=== PATIENT | male | born 1960 | race African-American/Black ===

== ENCOUNTER 2016-08-08 07:47 | Inpatient (IN) | payer MEDICARE, BC ==
[2016-08-08] MEDS ORDERED: SODIUM CHLORIDE 0.9% 1,000 ML IV STA (08:02)
--- NOTE | 2016-08-08 08:05 | ED ---
General Adult HPI - General Chief complaint: Arrhythmia/Palpitations Stated complaint: HEART RATE Time Seen by Provider: 08/08/16 07:56 Source: patient, family, RN notes reviewed Mode of arrival: ambulatory Limitations: no limitations - History of Present Illness Initial comments: Patient is a pleasant 56-year-old male presenting to the emergency Department with reported high heart rate. Patient denies palpitations. Patient states he did go to dialysis and was advised to come here secondary to increased heart rate. Patient admits to not taking his amiodarone for the past few days. Patient states he ran out and was delayed in getting it refilled. Patient did have similar symptoms previously also associated with not taking his medications one time. No chest pain. Patient states she may be slightly short of breath however attributes this to being told his heart rate was high and may feel anxious because of it. Patient denied any shortness of breath prior to being told his heart rate was high. No leg pain or leg swelling. - Related Data Home Medications Medication Instructions Recorded Confirmed Folic Acid 1 mg PO DAILY 03/11/16 08/08/16 Lisinopril [Zestril] 10 mg PO BID 04/18/16 08/08/16 Amiodarone [Cordarone] 200 mg PO DAILY 08/08/16 08/08/16 Carvedilol [Coreg] 3.125 mg PO BID 08/08/16 08/08/16 HYDROcodone/APAP 5-325MG [[place] 1 tab PO Q6H PRN 08/08/16 08/08/16 5-325] hydrALAZINE HCL [Apresoline] 100 mg PO DIRECTED 08/08/16 08/08/16 traZODone HCL 50 mg PO HS 08/08/16 08/08/16 Allergies Allergy/AdvReac Type Severity Reaction Status Date / Time No Known Allergies Allergy Verified 08/08/16 08:38 Review of Systems ROS Statement: Those systems with pertinent positive or pertinent negative responses have been documented in the HPI. ROS Other: All systems not noted in ROS Statement are negative. Constitutional: Denies: fever Eyes: Denies: eye pain ENT: Denies: ear pain Respiratory: Denies: cough Cardiovascular: Denies: chest pain Endocrine: Denies: fatigue Gastrointestinal: Denies: abdominal pain Genitourinary: Denies: urgency Musculoskeletal: Denies: back pain Skin: Denies: rash Neurological: Denies: weakness Past Medical History Past Medical History: Coronary Artery Disease (CAD), Heart Failure, Dialysis, Hyperlipidemia, Hypertension, Myocardial Infarction ([place]), Pneumonia, Renal Disease, Supraventricular Tachycardia (SVT) Additional Past Medical History / Comment(s): Pt recently admitted to [facility] 03/26 with NVD, hyperkalemia. Other HX: 03/11/16 possible R lower lobe pneumonia with sepsis with metabolic encephalopathy.chronic kidney disease stage IV, hemodialysis MOWEFR, moderate cardiomegaly, EF 30-40%, SVT in past, nonsustained VTach, SOB,Weakness, gait dysfunction, anemia, gout, diverticulosis. Last Myocardial Infarction Date:: 2014 History of Any Multi-Drug Resistant Organisms: None Reported Past Surgical History: Heart Catheterization, Heart Catheterization With Stent, Orthopedic Surgery Additional Past Surgical History / Comment(s): dialysis shunt LT ARM ,KIDNEY TRANSPLANT 1993 (RT), lt hand fingers broken-repaired. 2014 cardiac cath with stent to proximal LAD, 2015 heart cath treated medically, colonoscopy with benign polypectomy. Past Anesthesia/Blood Transfusion Reactions: No Reported Reaction Date of Last Stent Placement:: 06/2014 Past Psychological History: Anxiety Additional Psychological History / Comment(s): lives in the family home with his and daughters. 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 No experience. No international travel. No animal exposures. Denies tobacco or alcohol use. Pt states he smokes marijuana- 1 joint most days. Smoking Status: Former smoker Past Alcohol Use History: None Reported Additional Past Alcohol Use History / Comment(s): QUIT SMOKING IN 2009(CIGARS) UNSURE HOW LONG HE SMOKED FOR Past Drug Use History: None Reported Additional Drug Use History / Comment(s): Pt states he smokes marijuana- 1 joint most days. - Past Family History Father Family Medical History: Unable to Obtain Additional Family Medical History / Comment(s): WAS RAISED BY STEP DAD. Mother Family Medical History: Congestive Heart Failure (CHF), Diabetes Mellitus, Renal Disease Additional Family Medical History / Comment(s): Mother passed in 2004 General Exam Limitations: no limitations General appearance: alert, in no apparent distress Head exam: Present: atraumatic Eye exam: Present: normal appearance, PERRL ENT exam: Present: normal oropharynx Neck exam: Present: normal inspection Respiratory exam: Present: normal lung sounds bilaterally Cardiovascular Exam: Present: tachycardia GI/Abdominal exam: Present: soft. Absent: tenderness Extremities exam: Present: normal inspection Neurological exam: Present: alert Psychiatric exam: Present: normal affect, normal mood Skin exam: Absent: rash Course Vital Signs 08/08/16 08/08/16 08/08/16 07:51 07:58 08:38 Temperature Pulse Rate 136 H 134 H Pulse Rate [ 138 H Bilateral Radial] Respiratory 20 Rate Blood Pressure 134/94 O2 Sat by Pulse 98 Oximetry 08/08/16 08/08/16 08/08/16 09:15 09:41 10:46 Temperature 98.5 F Pulse Rate 135 H 130 H 129 H Pulse Rate [ Bilateral Radial] Respiratory 16 18 16 Rate Blood Pressure 128/92 126/95 118/96 O2 Sat by Pulse 97 99 100 Oximetry - Reevaluation(s) Reevaluation #1: 08/08/16 08:14 Patient takes amiodarone 200 mg daily normally. 08/08/16 08:19 Case was discussed with Dr. Varma who will notify Dr. Genao to come see the patient. 08/08/16 08:37 Case was discussed with practitioner Shad who does recommend 150 mg IV amiodarone bolus followed by titration protocol. EKG Findings - EKG Comments: EKG Findings:: SVT at 138. QRS 100. QT 318. QTC 481. Left axis. Voltage criteria for LVH. Septal Q waves. No acute ST change. Medical Decision Making - Medical Decision Making Heart rate has improved somewhat to 129. Case was discussed in detail also with Dr. Molina, who will admit his patient. Patient and family updated. - Lab Data Result diagrams: 08/08/16 09:00 08/08/16 08:08 Lab Results 08/08/16 08/08/16 08/08/16 Range/Units 08:08 08:08 09:00 WBC 4.7 (3.8-10.6) k/uL RBC 4.30 (4.30-5.90) m/uL Hgb 13.0 (13.0-17.5) gm/dL Hct 40.2 (39.0-53.0) % MCV 93.5 (80.0-100.0) fL MCH 30.2 (25.0-35.0) pg MCHC 32.3 (31.0-37.0) g/dL RDW 16.6 H (11.5-15.5) % Plt Count 157 (150-450) k/uL Neutrophils % 58 % Lymphocytes % 22 % Monocytes % 10 % Eosinophils % 6 % Basophils % 1 % Neutrophils # 2.8 (1.3-7.7) k/uL Lymphocytes # 1.0 (1.0-4.8) k/uL Monocytes # 0.5 (0-1.0) k/uL Eosinophils # 0.3 (0-0.7) k/uL Basophils # 0.0 (0-0.2) k/uL Anisocytosis Slight PT (9.0-12.0) sec INR (<1.1) APTT (22.0-30.0) sec Sodium 141 (137-145) mmol/L Potassium 5.1 (3.5-5.1) mmol/L Chloride 98 (98-107) mmol/L Carbon Dioxide 21 L (22-30) mmol/L Anion Gap 22 mmol/L BUN 60 H (9-20) mg/dL Creatinine 10.01 H* (0.66-1.25) mg/dL Est GFR (MDRD) Af Amer 7 (>60 ml/min/1.73 sqM) Est GFR (MDRD) Non-Af 5 (>60 ml/min/1.73 sqM) Glucose 113 H (74-99) mg/dL Calcium 9.7 (8.4-10.2) mg/dL Magnesium 2.0 (1.6-2.3) mg/dL Total Bilirubin 0.8 (0.2-1.3) mg/dL AST 30 (17-59) U/L ALT 32 (21-72) U/L Alkaline Phosphatase 125 (38-126) U/L Total Creatine Kinase 82 (55-170) U/L CK-MB (CK-2) 1.9 (0.0-2.4) ng/mL CK-MB (CK-2) Rel Index 2.3 Troponin I 0.137 H* (0.000-0.034) ng/mL Total Protein 8.2 (6.3-8.2) g/dL Albumin 4.5 (3.5-5.0) g/dL TSH 1.790 (0.465-4.680) mIU/L Free T4 1.43 (0.78-2.19) ng/dL Free T3 pg/mL 4.4 (2.8-5.3) pg/ml 08/08/16 Range/Units 09:00 WBC (3.8-10.6) k/uL RBC (4.30-5.90) m/uL Hgb (13.0-17.5) gm/dL Hct (39.0-53.0) % MCV (80.0-100.0) fL MCH (25.0-35.0) pg MCHC (31.0-37.0) g/dL RDW (11.5-15.5) % Plt Count (150-450) k/uL Neutrophils % % Lymphocytes % % Monocytes % % Eosinophils % % Basophils % % Neutrophils # (1.3-7.7) k/uL Lymphocytes # (1.0-4.8) k/uL Monocytes # (0-1.0) k/uL Eosinophils # (0-0.7) k/uL Basophils # (0-0.2) k/uL Anisocytosis PT 11.2 (9.0-12.0) sec INR 1.1 (<1.1) APTT 21.2 L (22.0-30.0) sec Sodium (137-145) mmol/L Potassium (3.5-5.1) mmol/L Chloride (98-107) mmol/L Carbon Dioxide (22-30) mmol/L Anion Gap mmol/L BUN (9-20) mg/dL Creatinine (0.66-1.25) mg/dL Est GFR (MDRD) Af Amer (>60 ml/min/1.73 sqM) Est GFR (MDRD) Non-Af (>60 ml/min/1.73 sqM) Glucose (74-99) mg/dL Calcium (8.4-10.2) mg/dL Magnesium (1.6-2.3) mg/dL Total Bilirubin (0.2-1.3) mg/dL AST (17-59) U/L ALT (21-72) U/L Alkaline Phosphatase (38-126) U/L Total Creatine Kinase (55-170) U/L CK-MB (CK-2) (0.0-2.4) ng/mL CK-MB (CK-2) Rel Index Troponin I (0.000-0.034) ng/mL Total Protein (6.3-8.2) g/dL Albumin (3.5-5.0) g/dL TSH (0.465-4.680) mIU/L Free T4 (0.78-2.19) ng/dL Free T3 pg/mL (2.8-5.3) pg/ml - Radiology Data Radiology results: image reviewed (Chest x-ray shows cardiomegaly. There is some pulmonary venous congestion.) Critical Care Time Critical Care Time: Yes Total Critical Care Time: 32 Disposition Clinical Impression: SVT (supraventricular tachycardia) Disposition: ADMITTED IP TO THIS HOSP
[2016-08-08 08:38] LABS: Calcium 9.7 mg/dL (8.4-10.2); Potassium 5.1 mmol/L (3.5-5.1); Total Bilirubin 0.8 mg/dL (0.2-1.3); Total Protein 8.2 g/dL (6.3-8.2)
--- NOTE | 2016-08-08 08:44 | XR ---
EXAMINATION TYPE: XR chest 1V portable DATE OF EXAM: 08/08/2016 8:34 AM HISTORY: Shortness of breath. COMPARISON: None. TECHNIQUE: Single view of the chest is submitted. FINDINGS: Demonstrated are scattered senescent parenchymal change. There is no evidence for focal infiltrate. There is cardiomegaly with pulmonary venous congestion. No evidence for overt failure. Hilar and mediastinal structures are within normal limits. Degenerative changes are seen of the dorsal spine. Right-sided central venous line in place. IMPRESSION: 1. There is cardiomegaly with pulmonary venous congestion. No evidence for overt failure.
[2016-08-08 08:59] LABS: Creatine Kinase MB 1.9 ng/mL (0.0-2.4)
[2016-08-08] MEDS ORDERED: DEXTROSE 5% IN WATER 100 ML with AMIODARONE 150 MG IV ONE (09:00)
[2016-08-08 09:07] LABS: Troponin I 0.137 ng/mL (0.000-0.034)
[2016-08-08] MEDS ORDERED: AMIODARONE 450 MG in DEXTROSE 5% IN WATER 250 ML IV ONE ×2 (09:10)
[2016-08-08 09:33] LABS: Anisocytosis Slight; Basophils % (A) 1 %; CHCM 32.2; Eosinophils # (A) 0.3 k/uL (0-0.7); Eosinophils % (A) 6 %; HCT 40.2 % (39.0-53.0); HDW 2.28; Luc # (Auto) 0.18; Luc % (Auto) 4; Lymphocytes % (A) 22 %; MCH 30.2 pg (25.0-35.0); MCHC 32.3 g/dL (31.0-37.0); MCV 93.5 fL (80.0-100.0); Mean Platelet Volume 9.2; Monocytes # (A) 0.5 k/uL (0-1.0); Monocytes % (A) 10 %; Neutrophils # (A) 2.8 k/uL (1.3-7.7); Neutrophils % (A) 58 %; RDW 16.6 % (11.5-15.5); WBC 4.7 k/uL (3.8-10.6)
[2016-08-08 09:48] LABS: INR 1.1 (<1.1); Partial Thromboplastin Time 21.2 sec (22.0-30.0); Prothrombin Time 11.2 sec (9.0-12.0)
[2016-08-08] MEDS ORDERED: HYDROcodone/APAP 5-325MG 1 EACH TAB PO PRN (11:06)
[2016-08-08 14:43] LABS: Creatine Kinase MB 1.9 ng/mL (0.0-2.4)
[2016-08-08 14:47] LABS: Troponin I 0.126 ng/mL (0.000-0.034)
[2016-08-08] MEDS: [UNRECOGNIZED DRUG - OTHER] IV SCH (15:42)
[2016-08-08] MEDS: DEXTROSE IV SCH (15:42)
[2016-08-08] MEDS: WATER IV SCH (15:42)
[2016-08-08] MEDS: CARVEDILOL 3.125 MG TAB PO SCH (17:05)
[2016-08-08] MEDS: hydrALAZINE HCL 50 MG TAB PO SCH ×2 (17:05→23:09)
--- NOTE | 2016-08-08 17:10 | CONS ---
DATE OF CONSULTATION: Mr. Cheek is a 56-year-old gentleman who is seen for cardiac evaluation. This patient is known to us. Patient has end-stage renal failure on dialysis and cardiomyopathy with severely impaired left ventricular systolic function. Patient used to come to the hospital frequently with a heart failure. Subsequently, patient was sent to the [facility] and was evaluated. The patient is currently getting continuous Primacor infusion and he is being put on the heart and kidney transplant list. The patient is also wearing a life vest. Patient is doing much better since he left the hospital and is being followed. 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 The patient is admitted with functional class III. He walks around without any problems. Denies any orthopnea or PND. Patient went to the dialysis center today. His heart was running fast so he was sent to the emergency room. EKG in the emergency room showed evidence of supraventricular tachycardia. Patient had missed his dose of Cordarone for 3 or 4 days. Patient denies any chest pain. Patient's home medications include: 1. Zestril 10 mg b.i.d. 2. Folic acid once a day. 3. Amiodarone 200 mg b.i.d. 4. Coreg 3.125 mg b.i.d. 5. Hydralazine. 6. Trazodone. Past medical history includes a history of prior failed renal transplant. Patient currently is on hemodialysis. Patient's also has a history of severely impaired left ventricular systolic function, prior cardiac catheterization with stent to the proximal LAD. He had subsequently repeat cardiac catheterization and was advised medical treatment. The patient had a kidney transplant in 1993, history of colonoscopy with polypectomy. SOCIAL HISTORY: Patient quit smoking in 2009. Physical examination at present reveals a 56-year-old gentleman who does not appear to be in any acute distress. Patient's blood pressure is 135/92 millimeters of mercury, heart rate was 130, heart rate is now 94, respiratory rate 18. HEENT examination is negative. Neck is supple. There is no increase in jugular venous pressure. Both the carotid pulses are felt. There is no bruit. Chest is symmetrical. HEART: The PMI is not felt. The first and second heart sounds are normal. Lungs are clear to auscultation and percussion. ABDOMEN: Soft. Liver is mildly enlarged. EXTREMITIES: Peripheral pulsations are not well felt. Patient's troponin is 0.137 and 0.126. ProBNP level is 66,000, T4 and TSH are normal. EKG is suggestive of supraventricular tachycardia. FINAL IMPRESSION: 1. This patient came with supraventricular tachycardia. Patient was started on amiodarone drip and now he converted to the normal sinus rhythm. We will continue amiodarone drip for 24 hours and put him back on oral amiodarone from tomorrow. 2. Ischemic cardiomyopathy with severely impaired left ventricular systolic function on chronic Primacor infusion. 3. Chronic renal failure with hemodialysis. We will continue the patient's current medications. Patient will get his dialysis. Echo and Doppler study will be done.
[2016-08-08] MEDS: AMIODARONE 450 MG in DEXTROSE 5% IN WATER 250 ML IV SCH ×2 (20:34)
[2016-08-08] MEDS: LISINOPRIL 10 MG TAB PO SCH (20:35)
[2016-08-08 20:50] LABS: Creatine Kinase MB 1.9 ng/mL (0.0-2.4)
[2016-08-08] MEDS ORDERED: traZODone HCL 50 MG TAB PO SCH (21:00)
[2016-08-08 21:05] LABS: Troponin I 0.129 ng/mL (0.000-0.034)
[2016-08-09 06:44] LABS: Cholesterol 159 mg/dL (<200); HDL Cholesterol 78 mg/dL (40-60); Triglycerides 47 mg/dL (<150)
[2016-08-09] MEDS: CARVEDILOL 3.125 MG TAB PO SCH ×2 (07:05→17:55)
--- NOTE | 2016-08-09 07:30 | P.HPIM ---
History of Present Illness H&P Date: 08/09/16 Chief Complaint: supraventricular tachycardia. This is a history of physical on a 56-year-old black male who was essentially found to have supraventricular tachycardia after having significant palpitations yesterday. He's had one episode of this back in April but hasn' t underlying history of tachycardia. He states in April he stopped taking his medicines for a few days. He's been compliant with his medications at this time. He has an underlying history of ischemic cardiomyopathy with chronic renal failure requiring dialysis. Otherwise, no bowel problems. No chest pain per se. Review of Systems Constitutional: Denies chills, Denies fever Eyes: denies blurred vision, denies pain Ears, nose, mouth and throat: Denies headache, Denies sore throat Cardiovascular: Reports as per HPI, Reports rapid heart beat Respiratory: Denies cough Gastrointestinal: Denies abdominal pain, Denies diarrhea, Denies nausea, Denies vomiting Musculoskeletal: Denies myalgias Integumentary: Denies pruritus, Denies rash Neurological: Denies numbness, Denies weakness Past Medical History Past Medical History: Coronary Artery Disease (CAD), Heart Failure, Dialysis, Hyperlipidemia, Hypertension, Myocardial Infarction ([place]), Pneumonia, Renal Disease, Supraventricular Tachycardia (SVT) Additional Past Medical History / Comment(s): 03/26/16 with NVD, hyperkalemia. Other HX: 03/11/16 possible R lower lobe pneumonia with sepsis with metabolic encephalopathy.chronic kidney disease stage IV, hemodialysis MOWEFR, moderate cardiomegaly, EF 30-40%, SVT in past, nonsustained VTach, SOB,Weakness , gait dysfunction, anemia, gout, diverticulosis.HAD HEART STUDIES AT [facility] APR 2016"GOT A BAD HEART"-HAS LIFE VEST, PICCLINE W/IV INFUSION MILRINONE Last Myocardial Infarction Date:: 2014 History of Any Multi-Drug Resistant Organisms: None Reported Past Surgical History: Heart Catheterization, Heart Catheterization With Stent, Orthopedic Surgery Additional Past Surgical History / Comment(s): dialysis shunt LT ARM ,KIDNEY TRANSPLANT 1993 (RT), lt hand fingers broken-repaired. 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 No experience. No international travel. No animal exposures. Denies current tobacco(paast cigars) or alcohol use. Pt states he smokes [id number] SINCE APR 2016 Smoking Status: Former smoker Past Alcohol Use History: None Reported Additional Past Alcohol Use History / Comment(s): QUIT SMOKING IN 2009(CIGARS) UNSURE HOW LONG HE SMOKED FOR Past Drug Use History: None Reported Additional Drug Use History / Comment(s): Pt states he smokes marijuana-occ, none since apr 2016. - Past Family History Father Family Medical History: Unable to Obtain Additional Family Medical History / Comment(s): WAS RAISED BY STEP DAD. Mother Family Medical History: Congestive Heart Failure (CHF), Diabetes Mellitus, Renal Disease Additional Family Medical History / Comment(s): Mother passed in 2004 Medications and Allergies Home Medications Medication Instructions Recorded Confirmed Type Folic Acid 1 mg PO DAILY 03/11/16 08/08/16 History Lisinopril [Zestril] 10 mg PO BID 04/18/16 08/08/16 History Amiodarone [Cordarone] 200 mg PO DAILY 08/08/16 08/08/16 History Carvedilol [Coreg] 3.125 mg PO BID 08/08/16 08/08/16 History HYDROcodone/APAP 5-325MG [[place] 1 tab PO Q6H PRN 08/08/16 08/08/16 History 5-325] hydrALAZINE HCL [Apresoline] 100 mg PO DIRECTED 08/08/16 08/08/16 History traZODone HCL 50 mg PO HS 08/08/16 08/08/16 History Allergies Allergy/AdvReac Type Severity Reaction Status Date / Time No Known Allergies Allergy Verified 08/08/16 08:38 Physical Exam Vitals: Vital Signs Temp Pulse Pulse Pulse Resp BP BP 08/09/16 04:00 97.9 F 126 H 96 14 123/82 08/09/16 00:00 98 08/08/16 23:07 98 14 125/84 08/08/16 20:00 97.3 F L 94 14 137/95 08/08/16 15:40 97.8 F 93 18 121/88 08/08/16 12:00 95.9 F L 126 H 126 H 18 135/92 08/08/16 11:34 128 H 20 129/89 Pulse Ox 08/09/16 04:00 96 08/09/16 00:00 08/08/16 23:07 97 08/08/16 20:00 97 08/08/16 15:40 98 08/08/16 12:00 99 08/08/16 11:34 98 Intake and Output 08/08/16 08/09/16 08/09/16 22:59 06:59 14:59 Intake Total 146.56 228.48 Balance 146.56 228.48 Intake: IV 28.56 228.48 0.9 @10 10 80 Amiodarone 450 mg In 17.26 138.08 Dextrose 5% in Water 250 ml @ 0.5 MG/MIN 17.26 mls /hr IV .Q15H1M MAXINE Rx#: [id number] Milrinone-D5w Pmx 20 mg 1.3 10.4 Patients Own Med 1 each In Dextrose/Water 1 100ml .bag @ 1.3 mls/hr IV . Q24H MAXINE Rx#:[id number] Oral 118 Other: Weight 87.3 kg - Constitutional General appearance: average body habitus, cooperative, no acute distress - EENT Eyes: no abnormal pupil - Neck Neck: no lymphadenopathy - Respiratory Respiratory: bilateral: CTA - Cardiovascular Rhythm: regular Heart sounds: normal: S1, S2 - Gastrointestinal General gastrointestinal: soft, no tenderness - Integumentary Integumentary: no cellulitis - Neurologic Neurologic: CNII-XII intact, focal deficits - Psychiatric Psychiatric: A&O x's 3, intact judgment & insight Results CBC & Chem 7: 08/08/16 09:00 08/08/16 08:08 Labs: Abnormal Lab Results - Last 24 Hours (Table) 08/08/16 08/08/16 08/09/16 Range/Units 13:44 19:59 05:33 Troponin I 0.126 H* 0.129 H* (0.000-0.034) ng/mL HDL Cholesterol 78 H (40-60) mg/dL Assessment and Plan (1) SVT (supraventricular tachycardia) Status: Acute (2) CHF (congestive heart failure) Status: Acute (3) ESRD (end stage renal disease) on dialysis Status: Acute (4) NICM (nonischemic cardiomyopathy) Status: Acute (5) Pulmonary HTN Status: Acute Plan: The patient is now converted back to sinus rhythm. Appreciate cardiology input. Await dialysis today. Echocardiogram is pending. Anticipate discharge once cleared by cardiology. Time with Patient: Less than 30
[2016-08-09 07:54] VITALS: RESP 18
--- NOTE | 2016-08-09 08:23 | ECHOF ---
Referral Reason:chf MEASUREMENTS -------- HEIGHT: 157.5 cm WEIGHT: 83.9 kg BP: RVIDd: 4.7 cm (< 3.3) IVSd: 1.5 cm (0.6 - 1.1) LVIDd: 4.7 cm (3.9 - 5.3) LVPWd: 1.3 cm (0.6 - 1.1) IVSs: 1.9 cm LVIDs: 4.2 cm LVPWs: 1.5 cm LA Diam: 5.0 cm (2.7 - 3.8) LAESV Index (A-L): 47.01 ml/m Ao Diam: 3.5 cm (2.0 - 3.7) AV Cusp: 1.6 cm (1.5 - 2.6) LA Diam: 5.2 cm (2.7 - 3.8) MV EXCURSION: 11.118 mm (> 18.000) MV EF SLOPE: 104 mm/s (70 - 150) EPSS: 1.7 cm MV E Tylor: 0.97 m/s MV DecT: 100 ms MV A Tylor: 0.34 m/s MV E/A Ratio: 2.85 RAP: 5.00 mmHg RVSP: 49.86 mmHg FINDINGS -------- Sinus rhythm. This was a technically adequate study. There is mild concentric left ventricular hypertrophy. There is moderate global hypokinesis of LV . Overall left ventricular systolic function is severely impaired with, an EF between 20 - 25 %. Anterseptal Hypokinesis Inferior Hypokinesis Septal Proximal Hypokinesis. The right ventricle is moderately enlarged. LA is severely dilated >40 ml/m2 The right atrial size is normal. There is mild aortic valve sclerosis. There is no evidence of aortic regurgitation. Mild mitral annular calcification present. Mild mitral regurgitation is present. [id number] tricuspid regurgitation present. There is moderate pulmonary hypertension. The right ventricular systolic pressure, as measured by Doppler, is 49.86mmHg. Trace/mild (physiologic) pulmonic regurgitation. The aortic root size is normal. There is no pericardial effusion. CONCLUSIONS -------- 1. There is mild concentric left ventricular hypertrophy. 2. Mild mitral annular calcification present. 3. Mild mitral regurgitation is present. 4. [id number] tricuspid regurgitation present. 5. There is moderate pulmonary hypertension. 6. The right ventricular systolic pressure, as measured by Doppler, is 49.86mmHg. 7. Trace/mild (physiologic) pulmonic regurgitation. 8. There is no pericardial effusion. 9. There is moderate global hypokinesis of LV . 10. Overall left ventricular systolic function is severely impaired with, an EF between 20 - 25 %. 11. Anterseptal Hypokinesis 12. Inferior Hypokinesis 13. Septal Proximal Hypokinesis. 14. The right ventricle is moderately enlarged. 15. LA is severely dilated >40 ml/m2 16. There is mild aortic valve sclerosis. DIE ATTACHER: Kathie Peña RDCS
[2016-08-09] MEDS ORDERED: AMIODARONE 200 MG TAB PO SCH ×2 (09:00)
[2016-08-09] MEDS: LISINOPRIL 10 MG TAB PO SCH (11:36)
[2016-08-09] MEDS: hydrALAZINE HCL 50 MG TAB PO SCH ×2 (11:36→15:58)
[2016-08-09] MEDS ORDERED: FOLIC ACID 1 MG TAB PO SCH (12:00)
--- NOTE | 2016-08-09 12:42 | CDI ---
In responding to this query, please exercise your independent professional judgment. The [facility] Coding Staff and Clinical Documentation Specialists appreciate your assistance in clarifying documentation, maintaining compliance with coding guidelines, accurately documenting patients condition and capturing severity of illness. The fact that a question is asked does not imply that any particular answer is desired or expected. Communication forms are a method of clarifying documentation and are not made part of the Legal Health Record. Thank you in advance for your clarification. Last Revision, August 2015 Mary Wheeler [address] [place] [address] Documentation Clarification Form Date: 08/09/2016 12:32:00 PM From: Prachi Roe CCS, CCDS Admit Date: 08/08/2016 11:04:00 AM Patient Name: Amado Cheek Visit Number: [id number] Discharge Date: Dr. Coby Genao: Per the documentation in the H/P & the Cardiology Consult, the patient has a history of congestive heart failure & also has severe ischemic cardiomyopathy. History/Risk Factors: ESRD on dialysis w/failed kidney transplant and pulmonary hypertension. Strong family history of CHF. Clinical Indicators: Presented with supraventricular tachycardia. VS: P 136, RR 20, BP 134/94, PO 98 ra BNP: 66,900 Echocardiogram Results: EF 20-25% systolic function severely impaired. Chest X Ray: Cardiomegaly with pulmonary venous congestion, no evidence of overt failure. Treatment: Lasix drip, IV Amiodarone, O2 2Lnc Consults: Cardiology, Nephrology, Cardiac Rehab In your professional opinion, can you please clarify the acuity and type of CHF if known? Acute Chronic Acute on Chronic AND Systolic Diastolic Systolic and Diastolic Cor Pulmonale (Right Sided HF w/ Pulmonary HTN) Unable to determine Other, please specify If known, please specify if Heart Failure is due to: Hypertension Rheumatic Fever Please document in your progress notes and discharge summary in order to capture severity of illness and risk of mortality. Include clinical findings that support your diagnosis. FYI: Press F11 to launch patient chart. Place X here if this finding has no clinical significance, is not applicable or if you are not able to provide any additional documentation. Thank You. GHADA
--- NOTE | 2016-08-09 14:26 | P.PN ---
Subjective Reason for consultation: End-stage renal disease History of present illness: Patient is seen in renal consultation for end-stage renal disease. He is maintained on hemodialysis on a Saturday schedule. Patient has systolic CHF with ejection fraction of 20-25% along with moderate pulmonary hypertension and tricuspid regurgitation. Patient went for hemodialysis yesterday but was noted to be tachycardic and sent to the emergency room for further care. He was noted to have supraventricular tachycardia. Patient states he missed the last 3 days off amiodarone. Patient follows at the heart failure clinic at [facility] and is currently maintained on a continuous Primacor drip. He also has a LifeVest in place. He was started on an amiodarone drip. He is hemodynamically stable with heart rate in the 80s to 90s range. He denies any chest shortness of breath. Currently undergoing hemodialysis. No vomiting or diarrhea. Vital signs are stable. General: The patient appeared well nourished and normally developed. HEENT: Head exam is unremarkable. Neck is without jugular venous distension. LUNGS: Lungs are clear to auscultation and percussion. Breath sounds decreased. HEART: Rate and Rhythm are regular. First and second heart sounds normal. No murmurs, rubs or gallops. ABDOMEN: Abdominal exam reveals normal bowel sounds. Non-tender and non- distended. No evidence of peritonitis. EXTREMITITES: No clubbing, cyanosis, or edema. Objective - Vital Signs Vital signs: Vital Signs Temp 96.9 F L 08/09/16 12:25 Pulse 87 08/09/16 13:50 Resp 18 08/09/16 13:50 BP 125/88 08/09/16 12:25 Pulse Ox 98 08/09/16 12:25 Intake & Output 08/08/16 08/09/16 08/09/16 18:59 06:59 18:59 Intake Total 118 257.04 Balance 118 257.04 Weight 87.3 kg Intake: IV 257.04 0.9 @10 90 Amiodarone 450 mg In 155.34 Dextrose 5% in Water 250 ml @ 0.5 MG/MIN 17.26 mls /hr IV .Q15H1M [facility] Rx#: [id number] Milrinone-D5w Pmx 20 mg 11.7 Patients Own Med 1 each In Dextrose/Water 1 100ml .bag @ 1.3 mls/hr IV . Q24H [facility] Rx#:[id number] Oral 118 Other: # Voids 0 - Labs CBC & Chem 7: 08/08/16 09:00 08/08/16 08:08 Labs: Abnormal Lab Results - Last 24 Hours (Table) 08/08/16 08/08/16 08/09/16 Range/Units 13:44 19:59 05:33 Troponin I 0.126 H* 0.129 H* (0.000-0.034) ng/mL HDL Cholesterol 78 H (40-60) mg/dL Assessment and Plan Plan: Assessment: #1. End-stage renal disease maintained on hemodialysis on a Saturday schedule. #2. Systolic CHF with ejection fraction of 20-25% with moderate pulmonary hypertension and tricuspid regurgitation. #3. Superventricular tachycardia. Patient missed 3 days of amiodarone. #4. Chronic kidney disease mineral bone disease. #5. Hypertension with chronic kidney disease. Controlled. Plan: Hemodialysis today and again tomorrow per his outpatient schedule. Cardiology following. Currently on oral amiodarone. Check phosphorus level. Nephrocaps daily. Thank you for the consultation. I will continue to follow the patient with you during his hospital stay.
[2016-08-09 15:54] VITALS: BP 125/80; PULSE 86; TEMP 97.9
[2016-08-09] MEDS: AMIODARONE 450 MG in DEXTROSE 5% IN WATER 250 ML IV SCH ×2 (15:57)
[2016-08-09] MEDS: DEXTROSE IV SCH (16:00)
[2016-08-09] MEDS: WATER IV SCH (16:00)
[2016-08-09] MEDS: [UNRECOGNIZED DRUG - OTHER] IV SCH (16:00)
--- NOTE | 2016-08-09 18:32 | PN ---
This patient was admitted with supraventricular tachycardia. Patient converted to the normal sinus rhythm. He is feeling well. He got his dialysis today. Denies any shortness of breath. Blood pressure is 125/80 mmHg. First and second heart sounds are normal. Lungs are clinically clear to auscultation and percussion. Patient can be discharged home on amiodarone 200 mg daily and continue the rest of the medications.
[2016-08-10] MEDS ORDERED: FOLIC ACID-VIT B COMPLEX-VIT C 1 CAP PO SCH (09:00)
--- NOTE | 2016-09-05 08:28 | CDI ---
In responding to this query, please exercise your independent professional judgment. The [facility] Coding Staff and Clinical Documentation Specialists appreciate your assistance in clarifying documentation, maintaining compliance with coding guidelines, accurately documenting patients condition and capturing severity of illness. The fact that a question is asked does not imply that any particular answer is desired or expected. Communication forms are a method of clarifying documentation and are not made part of the Legal Health Record. Thank you in advance for your clarification. Last Revision, August 2015 Mary Wheeler [address] [place] [address] Documentation Clarification Form Date: 08/09/2016 12:32:00 PM Resubmitted 09/05/2016 From: Prachi Roe CCS, CCDS Admit Date: 08/08/2016 11:04:00 AM Patient Name: Amado Cheek Visit Number: [id number] Discharge Date: 08/09/2016 Please respond in documentation prior to signing this query. Dr. Coby Genao: Per the documentation in the H/P & the Cardiology Consult, the patient has a history of congestive heart failure & also has severe ischemic cardiomyopathy. History/Risk Factors: ESRD on dialysis w/failed kidney transplant and pulmonary hypertension. Strong family history of CHF. Clinical Indicators: Presented with supraventricular tachycardia. VS: P 136, RR 20, BP 134/94, PO 98 ra BNP: 66,900 Echocardiogram Results: EF 20-25% systolic function severely impaired. Chest X Ray: Cardiomegaly with pulmonary venous congestion, no evidence of overt failure. Treatment: Lasix drip, IV Amiodarone, O2 2Lnc Consults: Cardiology, Nephrology, Cardiac Rehab In your professional opinion, can you please clarify the acuity and type of CHF if known? Acute Chronic Acute on Chronic AND Systolic Diastolic Systolic and Diastolic Cor Pulmonale (Right Sided HF w/ Pulmonary HTN) Unable to determine Other, please specify If known, please specify if Heart Failure is due to: Hypertension Rheumatic Fever Please document in your progress notes and discharge summary in order to capture severity of illness and risk of mortality. Include clinical findings that support your diagnosis. FYI: Press F11 to launch patient chart. Place X here if this finding has no clinical significance, is not applicable or if you are not able to provide any additional documentation. Thank You. GHADA
== END 2016-08-09 18:52 | disposition home or self-care (01) | DRG 308 ==
LOC: EC 07:47 → 6SEL 11:04
PROVIDERS: ADMIT Family Medicine; ATTEND Family Medicine
PROC: 5A1D00Z (ICD-10-PCS; principal; 2016-08-09)
DX: I47.1 Supraventricular tachycardia (principal); N18.6 End stage renal disease; I13.2 Hypertensive heart and chronic kidney disease with heart failure and with stage 5 chronic kidney disease, or end stage renal disease; T86.12 Kidney transplant failure; Z76.82 Awaiting organ transplant status; I27.2 Other secondary pulmonary hypertension; I07.1 Rheumatic tricuspid insufficiency; I50.20 Unspecified systolic (congestive) heart failure; I25.10 Atherosclerotic heart disease of native coronary artery without angina pectoris; I25.5 Ischemic cardiomyopathy; E78.5 Hyperlipidemia, unspecified; I25.2 Old myocardial infarction; F12.90 Cannabis use, unspecified, uncomplicated; Z86.59 Personal history of other mental and behavioral disorders; Z99.2 Dependence on renal dialysis; Z95.5 Presence of coronary angioplasty implant and graft; Z87.891 Personal history of nicotine dependence; Z79.899 Other long term (current) drug therapy; Z82.49 Family history of ischemic heart disease and other diseases of the circulatory system; Y83.0 Surgical operation with transplant of whole organ as the cause of abnormal reaction of the patient, or of later complication, without mention of misadventure at the time of the procedure
CPT/HCPCS: 36415; 36591; 71010; 80048; 80053; 80061; 80076; 82550; 82553; 83735; 83880; 84100; 84439; 84443; 84481; 84484; 85025; 85610; 85730; 90935; 93005; 93306; 96365; 96366; 99291

== ENCOUNTER 2016-08-23 12:31 | Inpatient (IN) | payer MEDICARE, BC ==
--- NOTE | 2016-08-23 13:43 | ED ---
Recheck HPI - General Chief Complaint: Recheck/Abnormal Lab/Rx Stated Complaint: Abnormal labs Time Seen by Provider: 08/23/16 13:28 Source: patient, family, RN notes reviewed Mode of arrival: ambulatory Limitations: no limitations - History of Present Illness Initial Comments: This is a 56-year-old male who is a dialysis patient who states he had dialysis yesterday morning but was apparently was found have an elevated potassium today. He denies any symptoms first breath fevers chills sweats nausea vomiting or palpitations. MD Complaint: abnormal lab - Related Data Home Medications Medication Instructions Recorded Confirmed Folic Acid 1 mg PO DAILY 03/11/16 08/23/16 Lisinopril [Zestril] 10 mg PO BID 04/18/16 08/23/16 Amiodarone [Cordarone] 200 mg PO DAILY 08/08/16 08/23/16 Carvedilol [Coreg] 3.125 mg PO BID 08/08/16 08/23/16 HYDROcodone/APAP 5-325MG [[place] 1 tab PO Q6H PRN 08/08/16 08/23/16 5-325] hydrALAZINE HCL [Apresoline] 100 mg PO TID 08/08/16 08/23/16 traZODone HCL 50 mg PO HS 08/08/16 08/23/16 Allergies Allergy/AdvReac Type Severity Reaction Status Date / Time No Known Allergies Allergy Verified 08/23/16 14:04 Review of Systems ROS Statement: Those systems with pertinent positive or pertinent negative responses have been documented in the HPI. ROS Other: All systems not noted in ROS Statement are negative. Past Medical History Past Medical History: Coronary Artery Disease (CAD), Heart Failure, Dialysis, Hyperlipidemia, Hypertension, Myocardial Infarction (DE), Pneumonia, Renal Disease Additional Past Medical History / Comment(s): Pt recently admitted to [facility] 03/26 with NVD, hyperkalemia. Other HX: 03/11/16 possible R lower lobe pneumonia with sepsis with metabolic encephalopathy.chronic kidney disease stage IV, hemodialysis MOWEFR, moderate cardiomegaly, EF 30-40%, SVT in past, nonsustained VTach, SOB,Weakness, gait dysfunction, anemia, gout, diverticulosis. Last Myocardial Infarction Date:: 2014 History of Any Multi-Drug Resistant Organisms: None Reported Past Surgical History: Heart Catheterization, Heart Catheterization With Stent, Orthopedic Surgery Additional Past Surgical History / Comment(s): dialysis shunt LT ARM ,KIDNEY TRANSPLANT 1993 (RT), lt hand fingers broken-repaired. 2014 cardiac cath with stent to proximal LAD, 2016 heart cath treated medically, colonoscopy with benign polypectomy. Past Anesthesia/Blood Transfusion Reactions: No Reported Reaction Date of Last Stent Placement:: 06/2014 Past Psychological History: Anxiety Additional Psychological History / Comment(s): lives in the family home with his and daughters. 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 No experience. No international travel. No animal exposures. Denies tobacco or alcohol use. Pt states he smokes marijuana- 1 joint most days. Smoking Status: Never smoker Past Alcohol Use History: None Reported Additional Past Alcohol Use History / Comment(s): QUIT SMOKING IN 2009(CIGARS) UNSURE HOW LONG HE SMOKED FOR Past Drug Use History: Marijuana Additional Drug Use History / Comment(s): Pt states he smokes marijuana- 1 joint most days. - Past Family History Father Family Medical History: Unable to Obtain Additional Family Medical History / Comment(s): WAS RAISED BY STEP DAD. Mother Family Medical History: Congestive Heart Failure (CHF), Diabetes Mellitus, Renal Disease Additional Family Medical History / Comment(s): Mother passed in 2004 General Exam - General Exam Comments Initial Comments: This is a well-developed well-nourished alert oriented history male Limitations: no limitations General appearance: alert, in no apparent distress Head exam: Present: atraumatic, normocephalic, normal inspection Eye exam: Present: normal appearance, PERRL, EOMI. Absent: scleral icterus, conjunctival injection, periorbital swelling ENT exam: Present: normal exam, mucous membranes moist Neck exam: Present: normal inspection. Absent: tenderness, meningismus, lymphadenopathy Respiratory exam: Present: normal lung sounds bilaterally. Absent: respiratory distress, wheezes, rales, rhonchi, stridor Cardiovascular Exam: Present: regular rate, normal rhythm, normal heart sounds. Absent: systolic murmur, diastolic murmur, rubs, gallop, clicks GI/Abdominal exam: Present: soft, normal bowel sounds. Absent: distended, tenderness, guarding, rebound, rigid Extremities exam: Present: normal inspection, full ROM, normal capillary refill. Absent: tenderness, pedal edema, joint swelling, calf tenderness Back exam: Present: normal inspection Neurological exam: Present: alert, oriented X3, CN II-XII intact Psychiatric exam: Present: normal affect, normal mood Skin exam: Present: warm, dry, intact, normal color. Absent: rash Course Vital Signs 08/23/16 08/23/16 08/23/16 13:09 16:54 17:03 Temperature 98.3 F Pulse Rate 85 84 86 Respiratory 16 Rate Blood Pressure 124/80 O2 Sat by Pulse 100 Oximetry Medical Decision Making - Lab Data Result diagrams: 08/23/16 15:43 Lab Results 08/23/16 Range/Units 15:43 Sodium 135 L (137-145) mmol/L Potassium 6.6 H* (3.5-5.1) mmol/L Chloride 95 L (98-107) mmol/L Carbon Dioxide 24 (22-30) mmol/L Anion Gap 16 mmol/L BUN 46 H (9-20) mg/dL Creatinine 8.74 H* (0.66-1.25) mg/dL Est GFR (MDRD) Af Amer 8 (>60 ml/min/1.73 sqM) Est GFR (MDRD) Non-Af 6 (>60 ml/min/1.73 sqM) Glucose 87 (74-99) mg/dL Calcium 9.7 (8.4-10.2) mg/dL Total Bilirubin 0.7 (0.2-1.3) mg/dL AST 33 (17-59) U/L ALT 34 (21-72) U/L Alkaline Phosphatase 122 (38-126) U/L Total Protein 7.7 (6.3-8.2) g/dL Albumin 4.3 (3.5-5.0) g/dL - EKG Data -: EKG Interpreted by Nd EKG shows normal: sinus rhythm (Sinus rhythm with a rate of 88. Interval 180 QRS duration 128 daily since QTC of 414/500 left exodeviation LVH compared with EKG dated 08/08/16 I see no acute changes at this time he T waves appear to be approximately identical configuration.) Disposition Clinical Impression: Acute hyperkalemia, Chronic renal failure Disposition: ADMITTED IP TO THIS [facility] Condition: Stable
[2016-08-23 16:24] LABS: Calcium 9.7 mg/dL (8.4-10.2); Total Bilirubin 0.7 mg/dL (0.2-1.3); Total Protein 7.7 g/dL (6.3-8.2)
[2016-08-23 16:26] LABS: Potassium 6.6 mmol/L (3.5-5.1)
[2016-08-23] MEDS ORDERED: IPRATROPIUM-ALBUTEROL 3 ML NEB INHALATION STA (16:44)
[2016-08-23] MEDS ORDERED: SODIUM POLYSTYRENE SULFONATE 15 GM/60 ML BOTTLE PO ONE (16:44)
[2016-08-23] MEDS ORDERED: NALOXONE 0.4 MG/ML 1 ML VIAL IV PRN (19:01)
[2016-08-23] MEDS ORDERED: HYDROcodone/APAP 5-325MG 1 EACH TAB PO PRN (19:05)
[2016-08-23] MEDS ORDERED: INSULIN REGULAR 100 UNIT/ML VIAL IV ONE (19:05)
[2016-08-23] MEDS ORDERED: DEXTROSE 50%-WATER 50 ML SYRINGE IVP STA (19:05)
[2016-08-23] MEDS ORDERED: SODIUM CHLORIDE 0.9% 1,000 ML IV SCH (19:15)
[2016-08-23] MEDS ORDERED: ALBUTEROL NEBULIZED 2.5 MG/3 ML INHALATION PRN (20:02)
[2016-08-23] MEDS ORDERED: traZODone HCL 50 MG TAB PO SCH (21:00)
[2016-08-23] MEDS ORDERED: LISINOPRIL 10 MG TAB PO SCH (21:00)
[2016-08-23] MEDS ORDERED: ALBUTEROL NEBULIZED 2.5 MG/3 ML INHALATION SCH (21:00)
[2016-08-24] MEDS: hydrALAZINE HCL 50 MG TAB PO SCH ×2 (00:56→15:30)
[2016-08-24] MEDS: CARVEDILOL 3.125 MG TAB PO SCH ×2 (00:56→07:02)
[2016-08-24 06:43] LABS: Calcium 9.8 mg/dL (8.4-10.2); Potassium 4.4 mmol/L (3.5-5.1)
[2016-08-24 07:02] LABS: Aty Lym Flag Slight; CH 29.7; CHCM 31.8; HCT 42.5 % (39.0-53.0); HDW 2.13; HGB 13.5 gm/dL (13.0-17.5); MCH 29.9 pg (25.0-35.0); MCHC 31.8 g/dL (31.0-37.0); MCV 93.8 fL (80.0-100.0); Mean Platelet Volume 6.9; RBC 4.53 m/uL (4.30-5.90); RDW 15.8 % (11.5-15.5); WBC 4.7 k/uL (3.8-10.6); WBC (Perox) 4.82
[2016-08-24 08:01] VITALS: TEMP 97.9
--- NOTE | 2016-08-24 08:14 | P.NPCON ---
History of Present Illness - Reason for Consult end stage renal disease - History of Present Illness Reason for consultation: End-stage renal disease History of present illness: Patient is a 56-year-old Afro-[place] male seen in renal consultation for end- stage renal disease. He is maintained on hemodialysis on a Saturday schedule. Patient has systolic CHF with ejection fraction of 20-25% with moderate pulmonary hypertension and tricuspid regurgitation. He follows at [facility] and currently is on a continuous milrinone drip and also wears a LifeVest. He went for dialysis on Saturday. He had blood work done on for [facility] and was noted to have a potassium level of 6.6 and was told to come to the hospital. He does admit to eating greens and pork chop on Saturday night. He denies any chest pain or shortness of breath. He was noted to have PVCs as well as bigeminy on presentation. He underwent urgent hemodialysis on night and potassium this morning is 4.4. He has no other complaints at this time. It is noted that he is on lisinopril 10 mg twice daily. Vital signs are stable. General: The patient appeared well nourished and normally developed. HEENT: Head exam is unremarkable. Neck is without jugular venous distension. LUNGS: Lungs are clear to auscultation and percussion. Breath sounds decreased. HEART: Rate and Rhythm are regular. First and second heart sounds normal. No murmurs, rubs or gallops. ABDOMEN: Abdominal exam reveals normal bowel sounds. Non-tender and non- distended. No evidence of peritonitis. EXTREMITITES: No clubbing, cyanosis, or edema. Past Medical History Past Medical History: Coronary Artery Disease (CAD), Heart Failure, Dialysis, Hyperlipidemia, Hypertension, Myocardial Infarction (CT), Pneumonia, Renal Disease Additional Past Medical History / Comment(s): 3-17 SVT. 03/11/16 possible R lower lobe pneumonia with sepsis with metabolic encephalopathy.chronic kidney disease stage IV, hemodialysis MOWEFR, moderate cardiomegaly, EF 30-40%, SVT in past, nonsustained VTach, SOB,Weakness, gait dysfunction, anemia, gout, diverticulosis. Last Myocardial Infarction Date:: 2014 History of Any Multi-Drug Resistant Organisms: None Reported Past Surgical History: Heart Catheterization, Heart Catheterization With Stent, Orthopedic Surgery Additional Past Surgical History / Comment(s): dialysis shunt LT ARM ,KIDNEY TRANSPLANT 1993 (RT), lt hand fingers broken-repaired. 2014 cardiac cath with stent to proximal LAD, 2015 heart cath treated medically, colonoscopy with benign polypectomy. Past Anesthesia/Blood Transfusion Reactions: No Reported Reaction Date of Last Stent Placement:: 06/2014 Past Psychological History: Anxiety Additional Psychological History / Comment(s): lives in the family home with his and daughters. 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 No experience. No international travel. No animal exposures. Denies tobacco or alcohol use. Smoking Status: Former smoker Past Alcohol Use History: None Reported Additional Past Alcohol Use History / Comment(s): STATED SMOKED CIGARS FROM 1994 THEN QUIT 2009 Past Drug Use History: Marijuana Additional Drug Use History / Comment(s): NONE SINCE APR 2016 - Past Family History Father Family Medical History: Unable to Obtain Additional Family Medical History / Comment(s): WAS RAISED BY STEP DAD. Mother Family Medical History: Congestive Heart Failure (CHF), Diabetes Mellitus, Renal Disease Additional Family Medical History / Comment(s): Mother passed in 2004 Medications and Allergies Home Medications Medication Instructions Recorded Confirmed Type Folic Acid 1 mg PO DAILY 03/11/16 08/23/16 History Lisinopril [Zestril] 10 mg PO BID 04/18/16 08/23/16 History Amiodarone [Cordarone] 200 mg PO DAILY 08/08/16 08/23/16 History Carvedilol [Coreg] 3.125 mg PO BID 08/08/16 08/23/16 History HYDROcodone/APAP 5-325MG [[place] 1 tab PO Q6H PRN 08/08/16 08/23/16 History 5-325] hydrALAZINE HCL [Apresoline] 100 mg PO TID 08/08/16 08/23/16 History traZODone HCL 50 mg PO HS 08/08/16 08/23/16 History Allergies Allergy/AdvReac Type Severity Reaction Status Date / Time No Known Allergies Allergy Verified 08/23/16 14:04 Physical Exam Vitals: Vital Signs Temp Pulse Pulse Resp BP BP Pulse Ox 08/24/16 08:00 97.9 F 90 16 119/72 100 08/24/16 04:00 98.0 F 88 18 110/72 98 08/24/16 00:00 98.1 F 89 18 126/75 99 08/23/16 19:15 107 H 16 116/81 95 Intake and Output 08/23/16 08/24/16 08/24/16 22:59 06:59 14:59 Intake Total 600 Balance 600 Intake: Oral 600 Other: Voiding Method Toilet Urinal # Voids 0 Weight 82.5 kg Results - Lab Results Most recent lab results Calcium 9.8 mg/dL (8.4-10.2) 08/24/16 05:57 08/24/16 05:57 08/24/16 05:57 Assessment and Plan Plan: Assessment: #1. End-stage renal disease maintained on hemodialysis on Saturday schedule. #2. Hyperkalemia secondary to chronic kidney disease as well as lisinopril and hypercalcemia intake. #3. Chronic kidney disease mineral bone disease. #4. Systolic CHF with ejection fraction of 20-25% with moderate pulmonary hypertension. #5. Hypertension with chronic kidney disease. Controlled. Plan: Hemodialysis today per his outpatient schedule. Discontinue lisinopril. Add 5 mg amlodipine once daily. I advised them to follow low potassium diet as an outpatient. Will resume lisinopril as an outpatient if not hyperkalemic. Stable to be discharged home from nephrology standpoint after dialysis today. Thank you for the consultation. I will continue to follow the patient with you during his hospital stay.
[2016-08-24 08:19] LABS: Add Differential Manual Differential
[2016-08-24 08:22] LABS: Nucleated Red Blood Cells 0 /100 WBC (0-0); Total Cells Counted 100
--- NOTE | 2016-08-24 08:54 | P.DS ---
Providers Date of admission: 08/23/16 19:02 Attending physician: Marcos Molina Primary care physician: Marcos Molina - Discharge Diagnosis(es) (1) Acute hyperkalemia Current Visit: Yes Status: Acute (2) Chronic renal failure Current Visit: Yes Status: Acute (3) CHF (congestive heart failure) Current Visit: No Status: Acute (4) Dependence on renal dialysis Current Visit: No Status: Acute Hospital Course: This is a discharge summary on a 56-year-old black male with chronic renal disease was admitted for hyperkalemia. Lisinopril has been discontinued by nephrology and he was dialyzed twice while he is hospitalized. He is discharged in stable condition to follow-up with us in about one week. Patient Condition at Discharge: Stable Plan - Discharge Summary Discharge Medication List Folic Acid 1 mg PO DAILY 03/11/16 [History] Amiodarone [Cordarone] 200 mg PO DAILY 08/08/16 [History] Carvedilol [Coreg] 3.125 mg PO BID 08/08/16 [History] HYDROcodone/APAP 5-325MG [[place] 5-325] 1 tab PO Q6H PRN 08/08/16 [History] hydrALAZINE HCL [Apresoline] 100 mg PO TID 08/08/16 [History] traZODone HCL 50 mg PO HS 08/08/16 [History] Follow up Appointment(s)/Referral(s): Marcos Molina MD [Primary Care Provider] - 1 Week Discharge Disposition: HOME SELF-CARE
--- NOTE | 2016-08-24 08:57 | P.HPIM ---
History of Present Illness H&P Date: 08/24/16 Chief Complaint: hyperkalemia This is a history and physical on [id number] black male with history of end- stage renal disease was admitted for significant hyperkalemia. Nephrology has been consulted and he was dialyzed. This morning his potassium is now stabilizing. Lisinopril has been discontinued. He states no significant chest pain or chest pressure. No palpitations. No previous history of arrhythmia. She is fairly compliant with his medications does struggle with depression. No other voiding difficulty stated. Review of Systems Constitutional: Denies chills, Denies fever Eyes: denies blurred vision, denies pain Ears, nose, mouth and throat: Denies headache, Denies sore throat Cardiovascular: Denies chest pain, Denies shortness of breath Respiratory: Denies cough Musculoskeletal: Denies myalgias Past Medical History Past Medical History: Coronary Artery Disease (CAD), Heart Failure, Dialysis, Hyperlipidemia, Hypertension, Myocardial Infarction (ID), Pneumonia, Renal Disease Additional Past Medical History / Comment(s): 3-17 SVT. 03/11/16 possible R lower lobe pneumonia with sepsis with metabolic encephalopathy.chronic kidney disease stage IV, hemodialysis MOWEFR, moderate cardiomegaly, EF 30-40%, SVT in past, nonsustained VTach, SOB,Weakness, gait dysfunction, anemia, gout, diverticulosis. Last Myocardial Infarction Date:: 2014 History of Any Multi-Drug Resistant Organisms: None Reported Past Surgical History: Heart Catheterization, Heart Catheterization With Stent, Orthopedic Surgery Additional Past Surgical History / Comment(s): dialysis shunt LT ARM ,KIDNEY TRANSPLANT 1993 (RT), lt hand fingers broken-repaired. 2014 cardiac cath with stent to proximal LAD, 2016 heart cath treated medically, colonoscopy with benign polypectomy. Past Anesthesia/Blood Transfusion Reactions: No Reported Reaction Date of Last Stent Placement:: 06/2014 Past Psychological History: Anxiety Additional Psychological History / Comment(s): lives in the family home with his and daughters. 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 No experience. No international travel. No animal exposures. Denies tobacco or alcohol use. Smoking Status: Former smoker Past Alcohol Use History: None Reported Additional Past Alcohol Use History / Comment(s): STATED SMOKED CIGARS FROM 1994 THEN QUIT 2009 Past Drug Use History: Marijuana Additional Drug Use History / Comment(s): NONE SINCE APR 2016 - Past Family History Father Family Medical History: Unable to Obtain Additional Family Medical History / Comment(s): WAS RAISED BY STEP DAD. Mother Family Medical History: Congestive Heart Failure (CHF), Diabetes Mellitus, Renal Disease Additional Family Medical History / Comment(s): Mother passed in 2004 Medications and Allergies Home Medications Medication Instructions Recorded Confirmed Type Folic Acid 1 mg PO DAILY 03/11/16 08/23/16 History Amiodarone [Cordarone] 200 mg PO DAILY 08/08/16 08/23/16 History Carvedilol [Coreg] 3.125 mg PO BID 08/08/16 08/23/16 History HYDROcodone/APAP 5-325MG [[place] 1 tab PO Q6H PRN 08/08/16 08/23/16 History 5-325] hydrALAZINE HCL [Apresoline] 100 mg PO TID 08/08/16 08/23/16 History traZODone HCL 50 mg PO HS 08/08/16 08/23/16 History Allergies Allergy/AdvReac Type Severity Reaction Status Date / Time No Known Allergies Allergy Verified 08/23/16 14:04 Physical Exam Vitals: Vital Signs Temp Pulse Pulse Resp BP BP Pulse Ox 08/24/16 08:00 97.9 F 90 16 119/72 100 08/24/16 04:00 98.0 F 88 18 110/72 98 08/24/16 00:00 98.1 F 89 18 126/75 99 08/23/16 19:15 107 H 16 116/81 95 Intake and Output 08/23/16 08/24/16 08/24/16 22:59 06:59 14:59 Intake Total 600 Balance 600 Intake: Oral 600 Other: Voiding Method Toilet Urinal # Voids 0 Weight 82.5 kg - Constitutional General appearance: average body habitus - EENT Eyes: no abnormal pupil - Gastrointestinal General gastrointestinal: soft, no tenderness - Integumentary Integumentary: no rash - Neurologic Neurologic: CNII-XII intact, focal deficits - Musculoskeletal Musculoskeletal: gait normal - Psychiatric Psychiatric: A&O x's 3, intact judgment & insight Results CBC & Chem 7: 08/24/16 05:57 08/24/16 05:57 Labs: Abnormal Lab Results - Last 24 Hours (Table) 08/24/16 08/24/16 08/24/16 Range/Units 05:57 05:57 05:57 RDW 15.8 H (11.5-15.5) % Plt Count 141 L (150-450) k/uL Sodium 134 L (137-145) mmol/L Chloride 95 L (98-107) mmol/L BUN 34 H (9-20) mg/dL Creatinine 6.90 H* (0.66-1.25) mg/dL Phosphorus 6.9 H (2.5-4.5) mg/dL Thrombosis Risk Factor Assmnt - Choose All That Apply Any of the Below Risk Factors Present?: Yes Each Factor Represents 1 point: Age 41-60 years, Obesity (BMI >25) Other Risk Factors: No Other congenital or acquired thrombophilia - If yes, enter type in comment: No Thrombosis Risk Factor Assessment Total Risk Factor Score: 2 Thrombosis Risk Factor Assessment Level: Low Risk Assessment and Plan (1) Acute hyperkalemia Status: Acute (2) Chronic renal failure Status: Acute (3) CHF (congestive heart failure) Status: Acute (4) Dependence on renal dialysis Status: Acute Plan: Dialyze today. anticipate discharge once dialyzed later today. Check electrode levels on discharge. Lisinopril has been discontinued. We'll continue to follow from a medical perspective. Hyperkalemia has been resolved.
[2016-08-24] MEDS ORDERED: amLODIPine 5 MG TAB PO SCH (09:00)
[2016-08-24] MEDS ORDERED: AMIODARONE 200 MG TAB PO SCH (09:00)
[2016-08-24] MEDS ORDERED: FOLIC ACID-VIT B COMPLEX-VIT C 1 CAP PO SCH (09:00)
[2016-08-24 11:48] VITALS: RESP 18
[2016-08-24] MEDS ORDERED: FOLIC ACID 1 MG TAB PO SCH (12:00)
[2016-08-24 15:28] VITALS: BP 125/83; PULSE 92
== END 2016-08-24 15:58 | disposition home or self-care (01) | DRG 640 ==
LOC: EC 12:31 → 6SEL 19:02
PROVIDERS: ADMIT Family Medicine; ATTEND Family Medicine
PROC: 5A1D60Z (ICD-10-PCS; principal; 2016-08-23)
DX: E87.5 Hyperkalemia (principal); N18.6 End stage renal disease; I13.2 Hypertensive heart and chronic kidney disease with heart failure and with stage 5 chronic kidney disease, or end stage renal disease; I27.2 Other secondary pulmonary hypertension; Z94.0 Kidney transplant status; I07.1 Rheumatic tricuspid insufficiency; I50.22 Chronic systolic (congestive) heart failure; I25.2 Old myocardial infarction; I49.3 Ventricular premature depolarization; T46.4X5A Adverse effect of angiotensin-converting-enzyme inhibitors, initial encounter; I25.10 Atherosclerotic heart disease of native coronary artery without angina pectoris; E78.5 Hyperlipidemia, unspecified; F41.9 Anxiety disorder, unspecified; F12.90 Cannabis use, unspecified, uncomplicated; F32.9 Major depressive disorder, single episode, unspecified; Z79.899 Other long term (current) drug therapy; Z79.891 Long term (current) use of opiate analgesic; Z84.1 Family history of disorders of kidney and ureter; Z95.5 Presence of coronary angioplasty implant and graft; Z86.79 Personal history of other diseases of the circulatory system; Z82.49 Family history of ischemic heart disease and other diseases of the circulatory system; Z83.3 Family history of diabetes mellitus; Z87.891 Personal history of nicotine dependence; Z99.2 Dependence on renal dialysis; Z87.81 Personal history of (healed) traumatic fracture; Z86.010 Personal history of colon polyps; Z87.01 Personal history of pneumonia (recurrent); Z86.19 Personal history of other infectious and parasitic diseases; Z87.19 Personal history of other diseases of the digestive system; Z87.39 Personal history of other diseases of the musculoskeletal system and connective tissue
CPT/HCPCS: 36415; 36591; 80048; 80053; 80076; 83735; 84100; 85025; 90935; 93005; 94640; 96374; 99285

== ENCOUNTER 2016-09-14 09:55 | Emergency (ER) | payer MEDICARE, BC ==
--- NOTE | 2016-09-14 10:15 | ED ---
General Adult HPI - General Chief complaint: Arrhythmia/Palpitations Stated complaint: cardiac issues Time Seen by Provider: 09/14/16 10:06 Source: patient, EMS, RN notes reviewed, old records reviewed Mode of arrival: EMS Limitations: no limitations - History of Present Illness Initial comments: This is a 56-year-old male to the ER for evaluation. Patient comes in for evaluation of possible arrhythmia, suffering from palpitations. Patient does have significant heart history of COPD high blood pressure cholesterol history of CT and prior arrhythmia. Patient was at dialysis today and had bradycardic event, patient transferred to ER for further evaluation. - Related Data Home Medications Medication Instructions Recorded Confirmed Folic Acid 1 mg PO DAILY 03/11/16 09/14/16 Amiodarone [Cordarone] 200 mg PO DAILY 08/08/16 09/14/16 Calcium Carb-Mag Carb-Folic 3 tab PO AC-TID 09/14/16 09/14/16 [Magnebind 400 Rx] Lisinopril [Lisinopril] 10 mg PO BID 09/14/16 09/14/16 Allergies Allergy/AdvReac Type Severity Reaction Status Date / Time No Known Allergies Allergy Verified 09/14/16 10:24 Review of Systems ROS Statement: Those systems with pertinent positive or pertinent negative responses have been documented in the HPI. ROS Other: All systems not noted in ROS Statement are negative. Past Medical History Past Medical History: Coronary Artery Disease (CAD), Heart Failure, Dialysis, Hyperlipidemia, Hypertension, Myocardial Infarction ([place]), Pneumonia, Renal Disease Additional Past Medical History / Comment(s): 3-17 SVT. 03/11/16 possible R lower lobe pneumonia with sepsis with metabolic encephalopathy.chronic kidney disease stage IV, hemodialysis MOWEFR, moderate cardiomegaly, EF 30-40%, SVT in past, nonsustained VTach, SOB,Weakness, gait dysfunction, anemia, gout, diverticulosis. Last Myocardial Infarction Date:: 2014 History of Any Multi-Drug Resistant Organisms: None Reported Past Surgical History: Heart Catheterization, Heart Catheterization With Stent, Orthopedic Surgery Additional Past Surgical History / Comment(s): dialysis shunt LT ARM ,KIDNEY TRANSPLANT 1993 (RT), lt hand fingers broken-repaired. 2014 cardiac cath with stent to proximal LAD, 2015 heart cath treated medically, colonoscopy with benign polypectomy. Past Anesthesia/Blood Transfusion Reactions: No Reported Reaction Date of Last Stent Placement:: 06/2014 Past Psychological History: No Psychological Hx Reported Additional Psychological History / Comment(s): lives in the family home with his and daughters. 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 No experience. No international travel. No animal exposures. Denies tobacco or alcohol use. Smoking Status: Former smoker Past Alcohol Use History: None Reported Additional Past Alcohol Use History / Comment(s): STATED SMOKED CIGARS FROM 1994 THEN QUIT 2009 Past Drug Use History: None Reported Additional Drug Use History / Comment(s): NONE SINCE APR 2016 - Past Family History Father Family Medical History: Unable to Obtain Additional Family Medical History / Comment(s): WAS RAISED BY STEP DAD. Mother Family Medical History: Congestive Heart Failure (CHF), Diabetes Mellitus, Renal Disease Additional Family Medical History / Comment(s): Mother passed in 2004 General Exam Limitations: no limitations General appearance: alert, in no apparent distress Head exam: Present: atraumatic, normocephalic, normal inspection Eye exam: Present: normal appearance, PERRL, EOMI. Absent: scleral icterus, conjunctival injection, periorbital swelling ENT exam: Present: normal exam, mucous membranes moist Neck exam: Present: normal inspection. Absent: tenderness, meningismus, lymphadenopathy Respiratory exam: Present: normal lung sounds bilaterally. Absent: respiratory distress, wheezes, rales, rhonchi, stridor Cardiovascular Exam: Present: regular rate, normal rhythm, normal heart sounds. Absent: systolic murmur, diastolic murmur, rubs, gallop, clicks GI/Abdominal exam: Present: soft, normal bowel sounds. Absent: distended, tenderness, guarding, rebound, rigid Extremities exam: Present: normal inspection, full ROM, normal capillary refill. Absent: tenderness, pedal edema, joint swelling, calf tenderness Back exam: Present: normal inspection Neurological exam: Present: alert, oriented X3, CN II-XII intact Psychiatric exam: Present: normal affect, normal mood Skin exam: Present: warm, dry, intact, normal color. Absent: rash Course Vital Signs 09/14/16 09:56 Temperature 98.3 F Pulse Rate 89 Respiratory 18 Rate Blood Pressure 122/81 O2 Sat by Pulse 100 Oximetry - Reevaluation(s) Reevaluation #1: 09/14/16 11:30 Patient is without complaint here in the emergency room EKG Findings - EKG Comments: EKG Findings:: EKG shows normal sinus rhythm rate 91, [place] 166, QRS 138, QTc 501 Medical Decision Making - Medical Decision Making 50 formality ER for evaluation of bradycardic event, patient's blood pressure and high been normal throughout her emergency stay, patient symptoms happened during dialysis, he was a symptomatically event and is currently asymptomatic, patient would like to be discharged home - Lab Data Result diagrams: 09/14/16 10:21 09/14/16 10:21 Lab Results 09/14/16 09/14/16 09/14/16 Range/Units 10:21 10:21 10:21 WBC 5.5 (3.8-10.6) k/uL RBC 4.28 L (4.30-5.90) m/uL Hgb 13.0 (13.0-17.5) gm/dL Hct 39.7 (39.0-53.0) % MCV 92.8 (80.0-100.0) fL MCH 30.4 (25.0-35.0) pg MCHC 32.8 (31.0-37.0) g/dL RDW 15.9 H (11.5-15.5) % Plt Count 154 (150-450) k/uL Neutrophils % 62 % Lymphocytes % 18 % Monocytes % 7 % Eosinophils % 8 % Basophils % 1 % Neutrophils # 3.4 (1.3-7.7) k/uL Lymphocytes # 1.0 (1.0-4.8) k/uL Monocytes # 0.4 (0-1.0) k/uL Eosinophils # 0.5 (0-0.7) k/uL Basophils # 0.0 (0-0.2) k/uL PT (9.0-12.0) sec INR (<1.1) APTT (22.0-30.0) sec Sodium 139 (137-145) mmol/L Potassium 5.4 H (3.5-5.1) mmol/L Chloride 96 L (98-107) mmol/L Carbon Dioxide 29 (22-30) mmol/L Anion Gap 14 mmol/L BUN 28 H (9-20) mg/dL Creatinine 5.23 H* (0.66-1.25) mg/dL Est GFR (MDRD) Af Amer 14 (>60 ml/min/1.73 sqM) Est GFR (MDRD) Non-Af 12 (>60 ml/min/1.73 sqM) Glucose 88 (74-99) mg/dL Calcium 9.9 (8.4-10.2) mg/dL Phosphorus 4.3 (2.5-4.5) mg/dL Magnesium 2.1 (1.6-2.3) mg/dL Total Bilirubin 1.0 (0.2-1.3) mg/dL AST 37 (17-59) U/L ALT 27 (21-72) U/L Alkaline Phosphatase 117 (38-126) U/L Total Creatine Kinase 106 (55-170) U/L Total Protein 8.9 H (6.3-8.2) g/dL Albumin 4.6 (3.5-5.0) g/dL 09/14/16 Range/Units 10:21 WBC (3.8-10.6) k/uL RBC (4.30-5.90) m/uL Hgb (13.0-17.5) gm/dL Hct (39.0-53.0) % MCV (80.0-100.0) fL MCH (25.0-35.0) pg MCHC (31.0-37.0) g/dL RDW (11.5-15.5) % Plt Count (150-450) k/uL Neutrophils % % Lymphocytes % % Monocytes % % Eosinophils % % Basophils % % Neutrophils # (1.3-7.7) k/uL Lymphocytes # (1.0-4.8) k/uL Monocytes # (0-1.0) k/uL Eosinophils # (0-0.7) k/uL Basophils # (0-0.2) k/uL PT 10.6 (9.0-12.0) sec INR 1.0 (<1.1) APTT 26.2 (22.0-30.0) sec Sodium (137-145) mmol/L Potassium (3.5-5.1) mmol/L Chloride (98-107) mmol/L Carbon Dioxide (22-30) mmol/L Anion Gap mmol/L BUN (9-20) mg/dL Creatinine (0.66-1.25) mg/dL Est GFR (MDRD) Af Amer (>60 ml/min/1.73 sqM) Est GFR (MDRD) Non-Af (>60 ml/min/1.73 sqM) Glucose (74-99) mg/dL Calcium (8.4-10.2) mg/dL Phosphorus (2.5-4.5) mg/dL Magnesium (1.6-2.3) mg/dL Total Bilirubin (0.2-1.3) mg/dL AST (17-59) U/L ALT (21-72) U/L Alkaline Phosphatase (38-126) U/L Total Creatine Kinase (55-170) U/L Total Protein (6.3-8.2) g/dL Albumin (3.5-5.0) g/dL Disposition Clinical Impression: ESRD (end stage renal disease) on dialysis, Acute hyperkalemia, Bradycardia Disposition: HOME SELF-CARE Condition: Good Instructions: Bradycardia (ED), Hyperkalemia (ED) Referrals: Marcos Molina MD [Primary Care Provider] - 1-2 days
[2016-09-14 10:52] LABS: Basophils % (A) 1 %; CHCM 32.5; Eosinophils # (A) 0.5 k/uL (0-0.7); Eosinophils % (A) 8 %; HCT 39.7 % (39.0-53.0); HDW 2.24; Luc # (Auto) 0.22; Luc % (Auto) 4; Lymphocytes % (A) 18 %; MCH 30.4 pg (25.0-35.0); MCHC 32.8 g/dL (31.0-37.0); MCV 92.8 fL (80.0-100.0); Mean Platelet Volume 7.1; Monocytes # (A) 0.4 k/uL (0-1.0); Monocytes % (A) 7 %; Neutrophils # (A) 3.4 k/uL (1.3-7.7); Neutrophils % (A) 62 %; RBC 4.28 m/uL (4.30-5.90); RDW 15.9 % (11.5-15.5); WBC 5.5 k/uL (3.8-10.6); WBC (Perox) 5.59
[2016-09-14 11:03] LABS: Calcium 9.9 mg/dL (8.4-10.2); Magnesium 2.1 mg/dL (1.6-2.3); Phosphorous 4.3 mg/dL (2.5-4.5); Potassium 5.4 mmol/L (3.5-5.1); Total Protein 8.9 g/dL (6.3-8.2)
[2016-09-14 11:08] LABS: Partial Thromboplastin Time 26.2 sec (22.0-30.0); Prothrombin Time 10.6 sec (9.0-12.0)
[2016-09-14] MEDS ORDERED: SODIUM POLYSTYRENE SULFONATE 15 GM/60 ML BOTTLE PO STA (11:28)
[2016-09-14 11:38] LABS: Creatine Kinase MB 1.5 ng/mL (0.0-2.4)
[2016-09-14 11:45] LABS: Troponin I 0.144 ng/mL (0.000-0.034)
[2016-09-14 12:03] VITALS: BP 161/82; PULSE 80; RESP 16; TEMP 98
== END 2016-09-14 12:19 | disposition home or self-care (01) ==
LOC: EC 09:55
DX: I13.2 Hypertensive heart and chronic kidney disease with heart failure and with stage 5 chronic kidney disease, or end stage renal disease (principal); N18.6 End stage renal disease; E87.5 Hyperkalemia; R00.1 Bradycardia, unspecified; D64.9 Anemia, unspecified; Z99.2 Dependence on renal dialysis; Z95.5 Presence of coronary angioplasty implant and graft; Z94.0 Kidney transplant status; Z87.891 Personal history of nicotine dependence; Z79.899 Other long term (current) drug therapy
CPT/HCPCS: 36415; 80053; 82550; 82553; 83735; 84100; 84484; 85025; 85610; 85730; 93005; 99285

== ENCOUNTER → 2016-12-20 | Outpatient (CLI) | payer MEDICARE, BC ==
[~2016-12-20] MED LIST: SODIUM CHLORIDE 0.9% 250 ML in EMPTY BAG 1 BAG IV PRN; SODIUM CHLORIDE 0.9% 250 ML with PAMIDRONATE 60 MG IV ONE; SODIUM CHLORIDE 0.9% 500 ML in EMPTY BAG 1 BAG IV PRN
[2016-12-20 11:49] VITALS: RESP 16
[2016-12-20 11:53] VITALS: TEMP 97.8
[2016-12-20 15:32] VITALS: BP 103/69; PULSE 65
[2016-12-21 11:58] LABS: Free Kappa Lt Chain Qnt, Serum 52.9 mg/dL (0.33-1.94)
== END ==
LOC: PROCWHC3 11:11
PROVIDERS: ATTEND Internal Medicine
DX: E83.52 Hypercalcemia (principal)
CPT/HCPCS: 82652; 83883; 96365; 96366; J2430

== ENCOUNTER 2017-06-27 23:06 | Emergency (ER) | payer MEDICARE, BC ==
[2017-06-27 23:17] VITALS: RESP 18
--- NOTE | 2017-06-27 23:22 | ED ---
General Adult HPI - General Chief complaint: Syncope Stated complaint: syncope Time Seen by Provider: 06/27/17 23:07 Source: patient, EMS, RN notes reviewed, old records reviewed Mode of arrival: EMS Limitations: no limitations - History of Present Illness Initial comments: 57-year-old male presenting for syncopal episode. Patient is end-stage renal disease currently on dialysis. He receives hemodialysis Saturday. Last treatment was yesterday which was Saturday, according to patient he received full treatment. Patient states he felt flush, loss consciousness for several seconds according to his who is at bedside. Patient does not remember the events specifically. He was incontinent of stool. No generalized tonic-clonic or seizure-like activity. No history of seizures. Patient states he has had some tachycardia and palpitations over the past several weeks. He was out of his Coreg for approximately one month, he resume taking this medication about one week ago but has had persistent tachycardia in the 110s to 120s since then. He denies any chest pain. Denies abdominal pain. Denies nausea vomiting or diarrhea. Denies current headache. Patient is currently on milrinone drip for ischemic cardiomyopathy with an ejection fraction of 20%. He does not have an implantable defibrillator. - Related Data Home Medications Medication Instructions Recorded Confirmed Folic Acid 1 mg PO DAILY 03/11/16 06/18/17 Amiodarone [Cordarone] 200 mg PO DAILY 08/08/16 06/18/17 Calcium Carb-Mag Carb-Folic 3 tab PO AC-TID 09/14/16 06/18/17 [Magnebind 400 Rx] Lisinopril [Lisinopril] 10 mg PO BID 09/14/16 06/18/17 Carvedilol [Coreg] 1 tab PO BID 06/27/17 06/27/17 Allergies Allergy/AdvReac Type Severity Reaction Status Date / Time No Known Allergies Allergy Verified 06/27/17 23:17 Review of Systems ROS Statement: Those systems with pertinent positive or pertinent negative responses have been documented in the HPI. ROS Other: All systems not noted in ROS Statement are negative. Past Medical History Past Medical History: Coronary Artery Disease (CAD), Heart Failure, Dialysis, Hyperlipidemia, Hypertension, Myocardial Infarction ([place]), Pneumonia, Renal Disease Additional Past Medical History / Comment(s): Pt recently admitted to [facility] 03/26 with NVD, hyperkalemia. Other HX: 03/11/16 possible R lower lobe pneumonia with sepsis with metabolic encephalopathy.chronic kidney disease stage IV, hemodialysis MOWEFR, moderate cardiomegaly, EF 30-40%, SVT in past, nonsustained VTach, SOB,Weakness, gait dysfunction, anemia, gout, diverticulosis. Last Myocardial Infarction Date:: 2014 History of Any Multi-Drug Resistant Organisms: None Reported Past Surgical History: Heart Catheterization, Heart Catheterization With Stent, Orthopedic Surgery Additional Past Surgical History / Comment(s): dialysis shunt LT ARM ,KIDNEY TRANSPLANT 1993 (RT), lt hand fingers broken-repaired. 2014 cardiac cath with stent to proximal LAD, 2015 heart cath treated medically, colonoscopy with benign polypectomy. Past Anesthesia/Blood Transfusion Reactions: No Reported Reaction Date of Last Stent Placement:: 06/2014 Past Psychological History: Anxiety Smoking Status: Former smoker Past Alcohol Use History: None Reported Past Drug Use History: Marijuana - Past Family History Father Family Medical History: Unable to Obtain Additional Family Medical History / Comment(s): WAS RAISED BY STEP DAD. Mother Family Medical History: Congestive Heart Failure (CHF), Diabetes Mellitus, Renal Disease Additional Family Medical History / Comment(s): Mother passed in 2004 General Exam Limitations: no limitations General appearance: alert, in no apparent distress Head exam: Present: atraumatic, normocephalic Eye exam: Present: normal appearance, PERRL, EOMI ENT exam: Present: normal exam Neck exam: Present: normal inspection. Absent: tenderness, meningismus Respiratory exam: Present: normal lung sounds bilaterally. Absent: respiratory distress, wheezes Cardiovascular Exam: Present: regular rate, normal rhythm. Absent: JVD GI/Abdominal exam: Present: soft. Absent: distended, tenderness Extremities exam: Present: normal inspection, normal capillary refill. Absent: pedal edema Neurological exam: Present: alert, oriented X3, CN II-XII intact. Absent: motor sensory deficit Psychiatric exam: Present: normal affect, normal mood Skin exam: Present: warm, dry, intact. Absent: cyanosis, diaphoretic Course Vital Signs 06/27/17 06/28/17 23:08 00:39 Temperature 97.4 F L Pulse Rate 119 H 117 H Respiratory 18 18 Rate Blood Pressure 128/89 118/79 O2 Sat by Pulse 100 100 Oximetry EKG Findings - EKG Comments: EKG Findings:: EKG shows sinus tachycardia, possible ectopic atrial tachycardia , left axis deviation, ventricular rate of 118, OH interval 160, QRS duration 102, QTC 465, there is ST segment depression in the inferior leads, possible subendocardial injury. No ST segment elevation Medical Decision Making - Medical Decision Making 57-year-old male with history of end-stage renal disease and severe ischemic cardiomyopathy ejection fraction of 20% presents with syncopal episode. Patient was diaphoretic and had loss of bowel function. EKG shows possible ectopic atrial tachycardia with a rate of 118, no bradycardia or tachycardia dysrhythmia. Laboratory studies reveal white blood skull 6.0, stable hemoglobin 11.1, mild hyperkalemia 5.7 which is treated with Kayexalate and calcium gluconate. Troponin mildly elevated although this appears to be patient 's baseline. CT of the brain is negative for any acute intracranial pathology. Chest x-ray negative for acute findings. Patient does follow at [facility], he is been told that he will likely be a candidate for both heart and kidney transplant although he is not currently on the transplant list. Case is discussed with patient's primary care physician, given the complexity of the patient's medical history and current issues, it is recommended that the patient be transferred for further evaluation at [facility] where he is known. - Lab Data Result diagrams: 06/27/17 23:50 06/27/17 23:50 Lab Results 06/27/17 06/27/17 06/27/17 Range/Units 23:50 23:50 23:50 WBC 6.0 (3.8-10.6) k/uL RBC 3.59 L (4.30-5.90) m/uL Hgb 11.1 L (13.0-17.5) gm/dL Hct 35.1 L (39.0-53.0) % MCV 97.8 (80.0-100.0) fL MCH 31.0 (25.0-35.0) pg MCHC 31.7 (31.0-37.0) g/dL RDW 15.2 (11.5-15.5) % Plt Count 162 (150-450) k/uL Neutrophils % 74 % Lymphocytes % 14 % Monocytes % 3 % Eosinophils % 7 % Basophils % 0 % Neutrophils # 4.4 (1.3-7.7) k/uL Lymphocytes # 0.9 L (1.0-4.8) k/uL Monocytes # 0.2 (0-1.0) k/uL Eosinophils # 0.4 (0-0.7) k/uL Basophils # 0.0 (0-0.2) k/uL Hypochromasia Slight PT (9.0-12.0) sec INR (<1.2) APTT (22.0-30.0) sec Sodium 139 (137-145) mmol/L Potassium 5.7 H (3.5-5.1) mmol/L Chloride 97 L (98-107) mmol/L Carbon Dioxide 24 (22-30) mmol/L Anion Gap 18 mmol/L BUN 43 H (9-20) mg/dL Creatinine 9.80 H* (0.66-1.25) mg/dL Est GFR (MDRD) Af Amer 7 (>60 ml/min/1.73 sqM) Est GFR (MDRD) Non-Af 6 (>60 ml/min/1.73 sqM) Glucose 127 H (74-99) mg/dL POC Glucose (mg/dL) (75-99) mg/dL POC Glu Scorekeeper ID Calcium 9.3 (8.4-10.2) mg/dL Magnesium 2.3 (1.6-2.3) mg/dL Total Bilirubin 0.7 (0.2-1.3) mg/dL AST 29 (17-59) U/L ALT 14 L (21-72) U/L Alkaline Phosphatase 142 H (38-126) U/L Total Creatine Kinase 88 (55-170) U/L CK-MB (CK-2) 0.8 (0.0-2.4) ng/mL CK-MB (CK-2) Rel Index 0.9 Troponin I 0.131 H* (0.000-0.034) ng/mL Total Protein 7.5 (6.3-8.2) g/dL Albumin 4.1 (3.5-5.0) g/dL 06/27/17 06/28/17 Range/Units 23:50 00:02 WBC (3.8-10.6) k/uL RBC (4.30-5.90) m/uL Hgb (13.0-17.5) gm/dL Hct (39.0-53.0) % MCV (80.0-100.0) fL MCH (25.0-35.0) pg MCHC (31.0-37.0) g/dL RDW (11.5-15.5) % Plt Count (150-450) k/uL Neutrophils % % Lymphocytes % % Monocytes % % Eosinophils % % Basophils % % Neutrophils # (1.3-7.7) k/uL Lymphocytes # (1.0-4.8) k/uL Monocytes # (0-1.0) k/uL Eosinophils # (0-0.7) k/uL Basophils # (0-0.2) k/uL Hypochromasia PT 11.0 (9.0-12.0) sec INR 1.1 (<1.2) APTT 27.2 (22.0-30.0) sec Sodium (137-145) mmol/L Potassium (3.5-5.1) mmol/L Chloride (98-107) mmol/L Carbon Dioxide (22-30) mmol/L Anion Gap mmol/L BUN (9-20) mg/dL Creatinine (0.66-1.25) mg/dL Est GFR (MDRD) Af Amer (>60 ml/min/1.73 sqM) Est GFR (MDRD) Non-Af (>60 ml/min/1.73 sqM) Glucose (74-99) mg/dL POC Glucose (mg/dL) 113 H (75-99) mg/dL POC Glu Scorekeeper ID Genoveva Dubois Calcium (8.4-10.2) mg/dL Magnesium (1.6-2.3) mg/dL Total Bilirubin (0.2-1.3) mg/dL AST (17-59) U/L ALT (21-72) U/L Alkaline Phosphatase (38-126) U/L Total Creatine Kinase (55-170) U/L CK-MB (CK-2) (0.0-2.4) ng/mL CK-MB (CK-2) Rel Index Troponin I (0.000-0.034) ng/mL Total Protein (6.3-8.2) g/dL Albumin (3.5-5.0) g/dL Critical Care Time Critical Care Time: Yes Total Critical Care Time: 35 Disposition Clinical Impression: ESRD (end stage renal disease) on dialysis, Tachycardia, CHF (congestive heart failure), Syncope and collapse Disposition: OTHER INSTITUTION NOT DEFINED Condition: Serious Referrals: Marcos Molina MD [Primary Care Provider] - 1-2 days Time of Disposition: 01:10 - Out of Hospital Transfer - Req. Specs Out of Hospital Transfer - Requested Specifics: Telemetry Unit ([facility], heart failure unit, accepting physician Dr. Carpenter.)
[2017-06-28] MEDS ORDERED: CARVEDILOL 6.25 MG TAB PO STA (00:03)
[2017-06-28 00:04] LABS: Glucose,Whole Blood 113 mg/dL (75-99)
[2017-06-28 00:06] LABS: Basophils % (A) 0 %; Eosinophils # (A) 0.4 k/uL (0-0.7); Eosinophils % (A) 7 %; HCT 35.1 % (39.0-53.0); HGB 11.1 gm/dL (13.0-17.5); Hypochromasia Slight; Lymphocytes # (A) 0.9 k/uL (1.0-4.8); Lymphocytes % (A) 14 %; MCHC 31.7 g/dL (31.0-37.0); MCV 97.8 fL (80.0-100.0); Mean Platelet Volume 7.8; Monocytes # (A) 0.2 k/uL (0-1.0); Monocytes % (A) 3 %; Neutrophils # (A) 4.4 k/uL (1.3-7.7); Neutrophils % (A) 74 %; Platelet Count 162 k/uL (150-450); RBC 3.59 m/uL (4.30-5.90); RDW 15.2 % (11.5-15.5)
[2017-06-28] MEDS ORDERED: SODIUM CHLORIDE 0.9% 250 ML IV SCH (00:15)
[2017-06-28 00:16] LABS: Albumin 4.1 g/dL (3.5-5.0); Calcium 9.3 mg/dL (8.4-10.2); Magnesium 2.3 mg/dL (1.6-2.3); Potassium 5.7 mmol/L (3.5-5.1); Total Bilirubin 0.7 mg/dL (0.2-1.3); Total Protein 7.5 g/dL (6.3-8.2)
[2017-06-28 00:18] LABS: INR 1.1 (<1.2); Partial Thromboplastin Time 27.2 sec (22.0-30.0)
[2017-06-28] MEDS ORDERED: CALCIUM GLUCONATE 1,000 MG in SODIUM CHLORIDE 0.9% 100 ML IVPB ONE (00:26)
[2017-06-28] MEDS ORDERED: SODIUM POLYSTYRENE SULFONATE 15 GM/60 ML BOTTLE PO ONE (00:26)
[2017-06-28] MEDS ORDERED: SODIUM CHLORIDE 0.9% 250 ML IV STA (00:33)
[2017-06-28] MEDS: METOPROLOL TARTRATE 5 MG/5 ML VIAL IVP STA ×2 (00:37→00:39)
[2017-06-28 00:39] LABS: Creatine Kinase MB 0.8 ng/mL (0.0-2.4)
[2017-06-28 00:44] LABS: Troponin I 0.131 ng/mL (0.000-0.034)
--- NOTE | 2017-06-28 00:46 | CT ---
EXAM: CT Head Without Intravenous Contrast CLINICAL HISTORY: Syncope TECHNIQUE: Axial computed tomography images of the head/brain without intravenous contrast. CTDI is 0.15 59.43 mGy and DLP is 1121 mGy-cm. This CT exam was performed using one or more of the following dose reduction techniques: automated exposure control, adjustment of the mA and/or kV according to patient size, and/or use of iterative reconstruction technique. COMPARISON: CT head dated 03/13/2016 FINDINGS: Brain: No acute infarct, hemorrhage, mass, or edema. No significant white matter disease. Ventricles: Unremarkable. No ventriculomegaly. Bones/joints: Unremarkable. No acute fracture. Soft tissues: Unremarkable. Sinuses: Mild mucosal thickening and posterior surgical changes within the paranasal sinuses. Mastoid air cells: Unremarkable as visualized. No mastoid effusion. IMPRESSION: No acute findings.
--- NOTE | 2017-06-28 00:56 | XR ---
EXAM: XR Abdomen, 2 Views CLINICAL HISTORY: Syncope TECHNIQUE: Frontal view of the abdomen/pelvis with upright view of the abdomen. COMPARISON: Chest x-ray dated 04/18/2016 FINDINGS: Lower thorax: Mild enlargement of the heart.. Right IJ venous catheter with tip at the cavoatrial junction. Intraperitoneal space: No free air. Gastrointestinal tract: Unremarkable. No dilation. Bones/joints: Unremarkable. IMPRESSION: No acute findings.
[2017-06-28] MEDS ORDERED: LORazepam 2 MG/ML INJ IV STA (01:14)
[2017-06-28 02:21] VITALS: BP 120/83; PULSE 117; TEMP 98.5
== END 2017-06-28 02:39 | disposition short-term general hospital (02) ==
LOC: EC 23:06
DX: N18.6 End stage renal disease (principal); R55 Syncope and collapse; R00.0 Tachycardia, unspecified; R00.2 Palpitations; I13.2 Hypertensive heart and chronic kidney disease with heart failure and with stage 5 chronic kidney disease, or end stage renal disease; I50.9 Heart failure, unspecified; E87.5 Hyperkalemia; I25.5 Ischemic cardiomyopathy; R79.89 Other specified abnormal findings of blood chemistry; D64.9 Anemia, unspecified; I25.2 Old myocardial infarction; Z87.891 Personal history of nicotine dependence; Z79.899 Other long term (current) drug therapy; Z99.2 Dependence on renal dialysis; Z94.0 Kidney transplant status; Z82.49 Family history of ischemic heart disease and other diseases of the circulatory system; Z84.1 Family history of disorders of kidney and ureter; Z53.8 Procedure and treatment not carried out for other reasons
CPT/HCPCS: 36415 ×2; 93005; 80053; 82550; 82553; 83735; 84484; 85025; 85610; 85730; 71046; 70450; 99291; 96365; 96375; 96361; J2060; J0610

== ENCOUNTER 2017-07-25 08:41 | Day surgery (SDC) | payer MEDICARE, BC ==
[2017-07-23 12:16] VITALS: BMI 29.2
[~2017-07-25 08:41] MED LIST changes: +LACTATED RINGERS 1,000 ML IV SCH; -SODIUM CHLORIDE 0.9% 250 ML in EMPTY BAG 1 BAG IV PRN; -SODIUM CHLORIDE 0.9% 250 ML with PAMIDRONATE 60 MG IV ONE; -SODIUM CHLORIDE 0.9% 500 ML in EMPTY BAG 1 BAG IV PRN
[2017-07-25] MEDS ORDERED: SODIUM CHLORIDE 0.9% 1,000 ML IV ONE (09:11)
[2017-07-25 09:12] VITALS: TEMP 97.7
[2017-07-25] MEDS ORDERED: PROPOFOL 10 MG/ML 20 ML VIAL IV ONE (10:07)
--- NOTE | 2017-07-25 10:21 | P.GSHP ---
History of Present Illness H&P Date: 07/25/17 Chief Complaint: Screening colonoscopy Mariaa 57-year-old male referred from Dr. Molina. Patient is today for screening colonoscopy. He's never had a colonoscopy before. Past Medical History Past Medical History: Coronary Artery Disease (CAD), Heart Failure, Dialysis, Hyperlipidemia, Hypertension, Myocardial Infarction ([place]), Pneumonia, Renal Disease Additional Past Medical History / Comment(s): Pt recently admitted to [facility] 03/26 with NVD, hyperkalemia. Other HX: 03/11/16 possible R lower lobe pneumonia with sepsis with metabolic encephalopathy.chronic kidney disease stage IV, hemodialysis MOWEFR, moderate cardiomegaly, EF 30-40%, SVT in past, nonsustained VTach, SOB,Weakness, anemia, gout, diverticulosis. Last Myocardial Infarction Date:: 2014 History of Any Multi-Drug Resistant Organisms: None Reported Past Surgical History: Heart Catheterization, Heart Catheterization With Stent, Orthopedic Surgery Additional Past Surgical History / Comment(s): "heart shocked and put back into rhythm to weeks ago (Jun 2017) for beating too fast,dialysis shunt LT ARM , KIDNEY TRANSPLANT 1993 (RT), lt hand fingers broken-repaired. 2014 cardiac cath with stent to proximal LAD, 2016 heart cath treated medically, colonoscopy with benign polypectomy. Past Anesthesia/Blood Transfusion Reactions: No Reported Reaction Date of Last Stent Placement:: 06/2014 Smoking Status: Former smoker - Past Family History Father Family Medical History: Unable to Obtain Additional Family Medical History / Comment(s): WAS RAISED BY STEP DAD. Mother Family Medical History: Congestive Heart Failure (CHF), Diabetes Mellitus, Renal Disease Additional Family Medical History / Comment(s): Mother passed in 2004 Medications and Allergies Home Medications Medication Instructions Recorded Confirmed Type Folic Acid 1 mg PO DAILY 03/11/16 07/23/17 History Amiodarone [Cordarone] 200 mg PO QAM 08/08/16 07/23/17 History Calcium Carb-Mag Carb-Folic 3 tab PO AC-TID 09/14/16 07/23/17 History [Magnebind 400 Rx] Lisinopril [Lisinopril] 10 mg PO BID 09/14/16 07/23/17 History Carvedilol [Coreg] 3.125 mg PO BID 06/27/17 07/23/17 History Aspirin 81 mg PO DAILY 07/23/17 07/23/17 History Isosorbide Dinitrate 20 mg PO TID 07/23/17 07/23/17 History Pravastatin Sodium [Pravachol] 20 mg PO DAILY 07/23/17 07/23/17 History Warfarin [Coumadin] 5 mg PO DAILY 07/23/17 07/23/17 History hydrALAZINE HCL 75 mg PO TID 07/23/17 07/23/17 History Allergies Allergy/AdvReac Type Severity Reaction Status Date / Time No Known Allergies Allergy Verified 07/23/17 12:05 Surgical - Exam Vital Signs Temp Pulse Resp BP Pulse Ox 97.7 F 84 18 112/88 95 07/25/17 09:10 07/25/17 09:10 07/25/17 09:10 07/25/17 09:10 07/25/17 09:10 - General well developed, no distress - Eyes PERRL - ENT normal pinna - Neck no masses - Respiratory normal expansion - Cardiovascular Rhythm: regular - Abdomen Abdomen: soft, non tender Assessment and Plan Assessment: We'll perform screening colonoscopy.
--- NOTE | 2017-07-25 10:46 | P.OP ---
Date of Procedure: 07/25/17 Preoperative Diagnosis: Screening colonoscopy Postoperative Diagnosis: Normal colon Procedure(s) Performed: Colonoscopy Anesthesia: MAC Surgeon: Baljinder Guadarrama Pathology: none sent Condition: stable Disposition: PACU Description of Procedure: PROCEDURE: The patient was placed on the endoscopy table in the lateral position. Digital rectal examination was performed which revealed no abnormalities. The prostate was symmetrical without nodules. Flexible colonoscope was then placed in the patient's anus and passed throughout the entire colon. The ileocecal valve was visualized. The cecum, ascending, transverse, descending and sigmoid colon were normal. The rectum was normal as well. There were no masses, polyps or diverticula noted in the entire colon. SUMMARY OF FINDINGS: Normal colonoscopy.
[2017-07-25 11:04] VITALS: RESP 16
[2017-07-25 11:27] VITALS: BP 95/62; PULSE 73
== END 2017-07-25 11:34 | disposition home or self-care (01) ==
LOC: ORWHC2ENDO 08:41
PROVIDERS: ATTEND Surgery
DX: Z12.11 Encounter for screening for malignant neoplasm of colon (principal); K57.30 Diverticulosis of large intestine without perforation or abscess without bleeding; I25.10 Atherosclerotic heart disease of native coronary artery without angina pectoris; I13.0 Hypertensive heart and chronic kidney disease with heart failure and stage 1 through stage 4 chronic kidney disease, or unspecified chronic kidney disease; N18.4 Chronic kidney disease, stage 4 (severe); I50.9 Heart failure, unspecified; Z99.2 Dependence on renal dialysis; Z94.0 Kidney transplant status; E78.5 Hyperlipidemia, unspecified; I25.2 Old myocardial infarction; Z87.891 Personal history of nicotine dependence; Z79.01 Long term (current) use of anticoagulants; Z79.82 Long term (current) use of aspirin; Z79.899 Other long term (current) drug therapy
CPT/HCPCS: J2704; G0121

== ENCOUNTER 2018-05-13 18:40 | Observation (INO) | payer MEDICARE, BC ==
[2018-05-13] MEDS ORDERED: ISOSORBIDE DINITRATE 20 MG TAB PO STA (19:29)
--- NOTE | 2018-05-13 19:29 | ED ---
General Adult HPI - General Chief complaint: Shortness of Breath Stated complaint: Sob Time Seen by Provider: 05/13/18 19:02 Source: patient Mode of arrival: ambulatory Limitations: no limitations - History of Present Illness Initial comments: 58-year-old male patient with past medical history significant for coronary artery disease, heart failure, renal failure with dialysis, hypertension, AR, and pneumonia presents the emergency department today for evaluation of right- sided chest pain. Patient states that over the last week he has been feeling fatigued, has had occasional cough, and developed some pain to the right lower chest. Patient states that the pain is sharp and stabbing in nature. States that when he takes a deep breath the pain gets worse. He states he did have a cardiac ablation with his dive master from [facility] one week ago for atrial fibrillation. States that the procedure went well he had no complications, his physician is pleased with the results. Patient states that he started feeling fatigued and rundown prior to the procedure. Patient states that the cough is a few times a day. He denies any sputum production with this. He denies any fevers or chills. States he did have a couple episodes of vomiting over the last few days. He denies any abdominal pain or diarrhea with this. Patient denies any recent rash, shortness breath, chest pain, abdominal pain, nausea, vomiting, diarrhea, constipation, back pain, numbness, tingling, dizziness, weakness, hematuria, dysuria, urinary urgency, urinary frequency, headache, visual changes, or any other complaints. - Related Data Home Medications Medication Instructions Recorded Confirmed Folic Acid 1 mg PO DAILY 03/11/16 05/13/18 Amiodarone [Cordarone] 200 mg PO QAM 08/08/16 05/13/18 Lisinopril 10 mg PO BID 09/14/16 05/13/18 Carvedilol [Coreg] 3.125 mg PO BID 06/27/17 05/13/18 Aspirin 81 mg PO DAILY 07/23/17 05/13/18 Isosorbide Dinitrate 20 mg PO TID 07/23/17 05/13/18 Warfarin [Coumadin] 5 mg PO DAILY 07/23/17 05/13/18 hydrALAZINE HCL 75 mg PO TID 07/23/17 05/13/18 Allergies Allergy/AdvReac Type Severity Reaction Status Date / Time No Known Allergies Allergy Verified 05/13/18 19:51 Review of Systems ROS Statement: Those systems with pertinent positive or pertinent negative responses have been documented in the HPI. ROS Other: All systems not noted in ROS Statement are negative. Past Medical History Past Medical History: Coronary Artery Disease (CAD), Heart Failure, Dialysis, Hyperlipidemia, Hypertension, Myocardial Infarction (AR), Pneumonia, Renal Disease Additional Past Medical History / Comment(s): Pt recently admitted to [facility] 03/26 with NVD, hyperkalemia. Other HX: 03/11/16 possible R lower lobe pneumonia with sepsis with metabolic encephalopathy.chronic kidney disease stage IV, hemodialysis MOWEFR, moderate cardiomegaly, EF 30-40%, SVT in past, nonsustained VTach, SOB,Weakness, anemia, gout, diverticulosis. Last Myocardial Infarction Date:: 2014 History of Any Multi-Drug Resistant Organisms: None Reported Past Surgical History: Heart Catheterization, Heart Catheterization With Stent, Orthopedic Surgery Additional Past Surgical History / Comment(s): "heart shocked and put back into rhythm to weeks ago (Jun 2017) for beating too fast,dialysis shunt LT ARM , KIDNEY TRANSPLANT 1993 (RT), lt hand fingers broken-repaired. 2014 cardiac cath with stent to proximal LAD, 2016 heart cath treated medically, colonoscopy with benign polypectomy. Past Anesthesia/Blood Transfusion Reactions: No Reported Reaction Date of Last Stent Placement:: 06/2014 Past Psychological History: Anxiety Smoking Status: Former smoker - Past Family History Father Family Medical History: Unable to Obtain Additional Family Medical History / Comment(s): WAS RAISED BY STEP DAD. Mother Family Medical History: Congestive Heart Failure (CHF), Diabetes Mellitus, Renal Disease Additional Family Medical History / Comment(s): Mother passed in 2004 General Exam Limitations: no limitations General appearance: alert, in no apparent distress, other (This is a well- developed, well-nourished adult male patient in no acute distress. Vital signs upon presentation are temperature 98.6F, pulse 93, respirations 16, blood pressure 156/102, pulse ox 97% on room air.) Eye exam: Present: normal appearance, PERRL, EOMI. Absent: scleral icterus, conjunctival injection, periorbital swelling ENT exam: Present: normal exam, normal oropharynx, mucous membranes moist Respiratory exam: Present: normal lung sounds bilaterally. Absent: respiratory distress, wheezes, rales, rhonchi, stridor Cardiovascular Exam: Present: regular rate, normal rhythm, normal heart sounds. Absent: systolic murmur, diastolic murmur, rubs, gallop, clicks GI/Abdominal exam: Present: soft, normal bowel sounds. Absent: distended, tenderness, guarding, rebound, rigid Neurological exam: Present: alert, oriented X3, CN II-XII intact Psychiatric exam: Present: normal affect, normal mood Skin exam: Present: warm, dry, intact, normal color. Absent: rash Course Vital Signs 05/13/18 05/13/18 05/13/18 18:53 18:55 19:21 Temperature 98.6 F Pulse Rate 93 87 Respiratory 16 18 Rate Blood Pressure 156/102 160/114 O2 Sat by Pulse 97 99 Oximetry Medical Decision Making - Medical Decision Making 58 year-old male patient presents the emergency department today with complaints of sharp stabbing right-sided chest pain that worsens with deep breathing. States he is mildly short of breath and very fatigued. Chest x-ray showed some pulmonary edema. Labs reviewed and did reveal white blood cell count at 3.3, INR subtherapeutic at 1.4, d-dimer 1.01, BUN 33, creatinine 8.37, troponin elevated at 0.079. Patient does have history of chronically elevated troponin most likely from renal failure. Given patient's inadequate anticoagulation and elevated d-dimer we will admit to hospital for VQ scan in the morning. He'll be given a dose of Lovenox this evening. My attending spoke to Dr. Molina who is accepting. Patient is aware of results and agrees with this plan. - Lab Data Result diagrams: 05/13/18 19:15 05/13/18 19:15 Lab Results 05/13/18 05/13/18 05/13/18 Range/Units 19:15 19:15 19:15 WBC 3.3 L (3.8-10.6) k/uL RBC 5.39 (4.30-5.90) m/uL Hgb 15.5 (13.0-17.5) gm/dL Hct 49.4 (39.0-53.0) % MCV 91.7 (80.0-100.0) fL MCH 28.7 (25.0-35.0) pg MCHC 31.3 (31.0-37.0) g/dL RDW 15.8 H (11.5-15.5) % Plt Count 108 L (150-450) k/uL Neutrophils % 75 % Lymphocytes % 15 % Monocytes % 4 % Eosinophils % 5 % Basophils % 1 % Neutrophils # 2.5 (1.3-7.7) k/uL Lymphocytes # 0.5 L (1.0-4.8) k/uL Monocytes # 0.1 (0-1.0) k/uL Eosinophils # 0.2 (0-0.7) k/uL Basophils # 0.0 (0-0.2) k/uL Hypochromasia Slight PT (9.0-12.0) sec INR (<1.2) APTT (22.0-30.0) sec D-Dimer (<0.60) mg/L FEU Sodium 139 (137-145) mmol/L Potassium 4.2 (3.5-5.1) mmol/L Chloride 98 (98-107) mmol/L Carbon Dioxide 26 (22-30) mmol/L Anion Gap 15 mmol/L BUN 33 H (9-20) mg/dL Creatinine 8.37 H* (0.66-1.25) mg/dL Est GFR (CKD-EPI)AfAm 7 (>60 ml/min/1.73 sqM) Est GFR (CKD-EPI)NonAf 6 (>60 ml/min/1.73 sqM) Glucose 113 H (74-99) mg/dL Calcium 7.7 L (8.4-10.2) mg/dL Total Bilirubin 0.9 (0.2-1.3) mg/dL AST 18 (17-59) U/L ALT 13 L (21-72) U/L Alkaline Phosphatase 165 H (38-126) U/L Total Creatine Kinase 91 (55-170) U/L CK-MB (CK-2) 0.5 (0.0-2.4) ng/mL CK-MB (CK-2) Rel Index 0.5 Troponin I 0.079 H* (0.000-0.034) ng/mL Total Protein 7.8 (6.3-8.2) g/dL Albumin 4.1 (3.5-5.0) g/dL 05/13/18 Range/Units 19:15 WBC (3.8-10.6) k/uL RBC (4.30-5.90) m/uL Hgb (13.0-17.5) gm/dL Hct (39.0-53.0) % MCV (80.0-100.0) fL MCH (25.0-35.0) pg MCHC (31.0-37.0) g/dL RDW (11.5-15.5) % Plt Count (150-450) k/uL Neutrophils % % Lymphocytes % % Monocytes % % Eosinophils % % Basophils % % Neutrophils # (1.3-7.7) k/uL Lymphocytes # (1.0-4.8) k/uL Monocytes # (0-1.0) k/uL Eosinophils # (0-0.7) k/uL Basophils # (0-0.2) k/uL Hypochromasia PT 14.3 H (9.0-12.0) sec INR 1.4 H (<1.2) APTT 35.2 H (22.0-30.0) sec D-Dimer 1.01 H (<0.60) mg/L FEU Sodium (137-145) mmol/L Potassium (3.5-5.1) mmol/L Chloride (98-107) mmol/L Carbon Dioxide (22-30) mmol/L Anion Gap mmol/L BUN (9-20) mg/dL Creatinine (0.66-1.25) mg/dL Est GFR (CKD-EPI)AfAm (>60 ml/min/1.73 sqM) Est GFR (CKD-EPI)NonAf (>60 ml/min/1.73 sqM) Glucose (74-99) mg/dL Calcium (8.4-10.2) mg/dL Total Bilirubin (0.2-1.3) mg/dL AST (17-59) U/L ALT (21-72) U/L Alkaline Phosphatase (38-126) U/L Total Creatine Kinase (55-170) U/L CK-MB (CK-2) (0.0-2.4) ng/mL CK-MB (CK-2) Rel Index Troponin I (0.000-0.034) ng/mL Total Protein (6.3-8.2) g/dL Albumin (3.5-5.0) g/dL - Radiology Data Radiology results: report reviewed, image reviewed Two-view x-ray of the chest is obtained. Report was reviewed in its entirety. Impression by Dr. Rozina Mcduffie shows mild interstitial phase cardiogenic pulmonary edema, radiographic pattern. Disposition Clinical Impression: Atypical chest pain, Elevated d-dimer Disposition: ADMITTED IP TO THIS [facility] Condition: Serious Referrals: Marcos Molina MD [Primary Care Provider] - 1-2 days Decision to Admit Reason: Admit from EC Decision Date: 05/13/18 Decision Time: 22:13
[2018-05-13 19:35] LABS: Basophils % (A) 1 %; Eosinophils # (A) 0.2 k/uL (0-0.7); Eosinophils % (A) 5 %; HCT 49.4 % (39.0-53.0); HGB 15.5 gm/dL (13.0-17.5); Hypochromasia Slight; Lymphocytes # (A) 0.5 k/uL (1.0-4.8); Lymphocytes % (A) 15 %; MCH 28.7 pg (25.0-35.0); MCHC 31.3 g/dL (31.0-37.0); MCV 91.7 fL (80.0-100.0); Mean Platelet Volume 7.7; Monocytes # (A) 0.1 k/uL (0-1.0); Monocytes % (A) 4 %; Neutrophils # (A) 2.5 k/uL (1.3-7.7); Neutrophils % (A) 75 %; Platelet Count 108 k/uL (150-450); RBC 5.39 m/uL (4.30-5.90); RDW 15.8 % (11.5-15.5); WBC 3.3 k/uL (3.8-10.6)
--- NOTE | 2018-05-13 19:42 | XR ---
EXAMINATION: XR chest 2V DATE AND TIME: 05/13/2018 7:32 PM CLINICAL INDICATION: PHH; difficulty breathing TECHNIQUE: Departmental protocol COMPARISON: 06/28/2017 FINDINGS: EKG leads. The cardiac silhouette is mildly enlarged, unchanged. The remainder of the media stinal silhouette is unremarkable. There is mild silhouetting of the pulmonary vessels are bilaterally by a fine reticular pattern of in creased density suggesting mild interstitial phase pulmonary edema. The lungs are otherwise clear. There are no pulmonary consolidations or major atelectasis. The pleural spaces are negative. The skeletal structures and soft tissues are negative for acute findings. IMPRESSION: Mild interstitial phase cardiogenic pulmonary edema radiographic pattern.
[2018-05-13 19:46] LABS: Albumin 4.1 g/dL (3.5-5.0); Calcium 7.7 mg/dL (8.4-10.2); Potassium 4.2 mmol/L (3.5-5.1); Total Bilirubin 0.9 mg/dL (0.2-1.3); Total Protein 7.8 g/dL (6.3-8.2)
[2018-05-13 19:54] LABS: INR 1.4 (<1.2); Partial Thromboplastin Time 35.2 sec (22.0-30.0); Prothrombin Time 14.3 sec (9.0-12.0)
[2018-05-13 19:58] LABS: D-Dimer 1.01 mg/L FEU (<0.60)
[2018-05-13 20:03] LABS: Creatine Kinase MB 0.5 ng/mL (0.0-2.4)
[2018-05-13 20:17] LABS: Troponin I 0.079 ng/mL (0.000-0.034)
[2018-05-13] MEDS ORDERED: NALOXONE 0.4 MG/ML 1 ML VIAL IV PRN (22:05)
[2018-05-13] MEDS ORDERED: ENOXAPARIN 100 MG/ML SYRINGE SQ STA (22:10)
[2018-05-14 01:46] LABS: Creatine Kinase MB 0.5 ng/mL (0.0-2.4)
[2018-05-14 02:25] LABS: Troponin I 0.086 ng/mL (0.000-0.034)
[2018-05-14] MEDS ORDERED: hydrALAZINE HCL 25 MG TAB PO STA (03:43)
[2018-05-14] MEDS ORDERED: LISINOPRIL 10 MG TAB PO STA (03:43)
[2018-05-14 07:44] LABS: Basophils % (A) 1 %; Eosinophils # (A) 0.3 k/uL (0-0.7); Eosinophils % (A) 6 %; HCT 26.3 % (39.0-53.0); Hypochromasia Slight; Lymphocytes % (A) 16 %; MCH 29.2 pg (25.0-35.0); MCHC 32.2 g/dL (31.0-37.0); MCV 90.5 fL (80.0-100.0); Mean Platelet Volume 7.1; Monocytes # (A) 0.3 k/uL (0-1.0); Monocytes % (A) 4 %; Neutrophils # (A) 4.3 k/uL (1.3-7.7); Neutrophils % (A) 72 %; RBC 2.91 m/uL (4.30-5.90); RDW 15.8 % (11.5-15.5); WBC 5.9 k/uL (3.8-10.6)
[2018-05-14 07:45] LABS: HGB 8.5 gm/dL (13.0-17.5)
[2018-05-14 07:46] LABS: Platelet Count 171 k/uL (150-450)
[2018-05-14 08:03] LABS: Creatine Kinase MB 0.4 ng/mL (0.0-2.4)
[2018-05-14 08:17] LABS: Troponin I 0.097 ng/mL (0.000-0.034)
[2018-05-14] MEDS: ISOSORBIDE DINITRATE 20 MG TAB PO SCH ×3 (08:40→21:24)
[2018-05-14] MEDS: hydrALAZINE HCL 50 MG TAB PO SCH ×3 (08:40→21:24)
[2018-05-14] MEDS: LISINOPRIL 10 MG TAB PO SCH ×2 (08:40→21:24)
[2018-05-14] MEDS: CARVEDILOL 3.125 MG TAB PO SCH ×2 (08:41→17:53)
[2018-05-14] MEDS: ASPIRIN 81 MG PO SCH (08:41)
[2018-05-14] MEDS: AMIODARONE 200 MG TAB PO SCH (08:41)
[2018-05-14] MEDS: FOLIC ACID 1 MG TAB PO SCH (08:41)
[2018-05-14 08:49] LABS: Calcium 8.3 mg/dL (8.4-10.2); Potassium 4.3 mmol/L (3.5-5.1)
--- NOTE | 2018-05-14 08:57 | P.HPIM ---
History of Present Illness H&P Date: 05/14/18 Chief Complaint: Chest pressure. This is a history and physical 58-year-old white male with underlying history of coronary disease heart failure and end-stage renal disease who is a dialysis who recently had ablation at [facility] about one week ago. He states that the procedure went well and he's not been having any complications. However, he stated significant chest pain. He has been significant fatigue and has some mild cough. The patient denies any significant diaphoresis or nausea or vomiting. However, evaluation in the emergency room did show elevated d-dimer and we are ruling out for myocardial infarction. Cardiology is now consulted. Review of Systems Constitutional: Denies chills, Denies fever Eyes: denies blurred vision, denies pain Ears, nose, mouth and throat: Denies headache, Denies sore throat Cardiovascular: Reports as per HPI, Reports chest pain Gastrointestinal: Denies abdominal pain, Denies diarrhea, Denies nausea, Denies vomiting Musculoskeletal: Denies myalgias Integumentary: Denies pruritus, Denies rash Neurological: Denies numbness, Denies weakness Psychiatric: Denies anxiety, Denies depression Past Medical History Past Medical History: Coronary Artery Disease (CAD), Heart Failure, Dialysis, Hyperlipidemia, Hypertension, Myocardial Infarction ([place]), Pneumonia, Renal Disease Additional Past Medical History / Comment(s): Pt recently admitted to [facility] 03/26 with NVD, hyperkalemia. Other HX: 03/11/16 possible R lower lobe pneumonia with sepsis with metabolic encephalopathy.chronic kidney disease stage IV, hemodialysis MOWEFR, moderate cardiomegaly, EF 30-40%, SVT in past, nonsustained VTach, SOB,Weakness, anemia, gout, diverticulosis. Last Myocardial Infarction Date:: 2014 History of Any Multi-Drug Resistant Organisms: None Reported Past Surgical History: Heart Catheterization, Heart Catheterization With Stent, Orthopedic Surgery Additional Past Surgical History / Comment(s): "heart shocked and put back into rhythm to weeks ago (Jun 2017) for beating too fast,dialysis shunt LT ARM , KIDNEY TRANSPLANT 1993 (RT), lt hand fingers broken-repaired. 2014 cardiac cath with stent to proximal LAD, 2016 heart cath treated medically, colonoscopy with benign polypectomy. Past Anesthesia/Blood Transfusion Reactions: No Reported Reaction Date of Last Stent Placement:: 06/2014 Past Psychological History: Anxiety Smoking Status: Former smoker - Past Family History Father Family Medical History: Unable to Obtain Additional Family Medical History / Comment(s): WAS RAISED BY STEP DAD. Mother Family Medical History: Congestive Heart Failure (CHF), Diabetes Mellitus, Renal Disease Additional Family Medical History / Comment(s): Mother passed in 2004 Medications and Allergies Home Medications Medication Instructions Recorded Confirmed Type Folic Acid 1 mg PO DAILY 03/11/16 05/13/18 History Amiodarone [Cordarone] 200 mg PO QAM 08/08/16 05/13/18 History Lisinopril 10 mg PO BID 09/14/16 05/13/18 History Carvedilol [Coreg] 3.125 mg PO BID 06/27/17 05/13/18 History Aspirin 81 mg PO DAILY 07/23/17 05/13/18 History Isosorbide Dinitrate 20 mg PO TID 07/23/17 05/13/18 History Warfarin [Coumadin] 5 mg PO DAILY 07/23/17 05/13/18 History hydrALAZINE HCL 75 mg PO TID 07/23/17 05/13/18 History Allergies Allergy/AdvReac Type Severity Reaction Status Date / Time No Known Allergies Allergy Verified 05/13/18 19:51 Physical Exam Vitals: Vital Signs Temp Pulse Resp BP BP Pulse Ox 05/14/18 08:00 98.1 F 18 152/99 97 05/14/18 07:24 18 05/14/18 05:44 90 20 152/99 98 05/14/18 03:24 85 20 171/109 98 05/14/18 00:00 82 16 151/93 99 05/13/18 22:00 79 16 153/99 98 05/13/18 21:00 79 16 141/93 97 05/13/18 20:00 84 16 165/108 97 05/13/18 19:21 87 18 160/114 99 05/13/18 18:55 98.6 F 05/13/18 18:53 93 16 156/102 97 Intake and Output 05/13/18 05/14/18 05/14/18 22:59 06:59 14:59 Other: Weight 90.718 kg - Constitutional General appearance: no acute distress - EENT Eyes: EOMI - Neck Neck: no lymphadenopathy - Respiratory Respiratory: bilateral: CTA - Cardiovascular Rhythm: regular Heart sounds: normal: S1, S2 Abnormal Heart Sounds: no S3 Gallop - Gastrointestinal General gastrointestinal: soft, no splenomegaly, no tenderness Results CBC & Chem 7: 05/14/18 07:06 05/13/18 19:15 Labs: Abnormal Lab Results - Last 24 Hours (Table) 05/13/18 05/13/18 05/13/18 Range/Units 19:15 19:15 19:15 WBC 3.3 L (3.8-10.6) k/uL RBC (4.30-5.90) m/uL Hgb (13.0-17.5) gm/dL Hct (39.0-53.0) % RDW 15.8 H (11.5-15.5) % Plt Count 108 L (150-450) k/uL Lymphocytes # 0.5 L (1.0-4.8) k/uL PT (9.0-12.0) sec INR (<1.2) APTT (22.0-30.0) sec D-Dimer (<0.60) mg/L FEU BUN 33 H (9-20) mg/dL Creatinine 8.37 H* (0.66-1.25) mg/dL Glucose 113 H (74-99) mg/dL Calcium 7.7 L (8.4-10.2) mg/dL ALT 13 L (21-72) U/L Alkaline Phosphatase 165 H (38-126) U/L Troponin I 0.079 H* (0.000-0.034) ng/mL 05/13/18 05/14/18 05/14/18 Range/Units 19:15 00:56 07:06 WBC (3.8-10.6) k/uL RBC (4.30-5.90) m/uL Hgb (13.0-17.5) gm/dL Hct (39.0-53.0) % RDW (11.5-15.5) % Plt Count (150-450) k/uL Lymphocytes # (1.0-4.8) k/uL PT 14.3 H (9.0-12.0) sec INR 1.4 H (<1.2) APTT 35.2 H (22.0-30.0) sec D-Dimer 1.01 H (<0.60) mg/L FEU BUN (9-20) mg/dL Creatinine (0.66-1.25) mg/dL Glucose (74-99) mg/dL Calcium (8.4-10.2) mg/dL ALT (21-72) U/L Alkaline Phosphatase (38-126) U/L Troponin I 0.086 H* 0.097 H* (0.000-0.034) ng/mL 05/14/18 Range/Units 07:06 WBC (3.8-10.6) k/uL RBC 2.91 L (4.30-5.90) m/uL Hgb 8.5 L D (13.0-17.5) gm/dL Hct 26.3 L (39.0-53.0) % RDW 15.8 H (11.5-15.5) % Plt Count (150-450) k/uL Lymphocytes # (1.0-4.8) k/uL PT (9.0-12.0) sec INR (<1.2) APTT (22.0-30.0) sec D-Dimer (<0.60) mg/L FEU BUN (9-20) mg/dL Creatinine (0.66-1.25) mg/dL Glucose (74-99) mg/dL Calcium (8.4-10.2) mg/dL ALT (21-72) U/L Alkaline Phosphatase (38-126) U/L Troponin I (0.000-0.034) ng/mL Assessment and Plan (1) Atypical chest pain Current Visit: Yes Status: Acute Code(s): R07.89 - OTHER CHEST PAIN SNOMED Code(s): 437316631 (2) Elevated d-dimer Current Visit: Yes Status: Acute Code(s): R79.89 - OTHER SPECIFIED ABNORMAL FINDINGS OF BLOOD CHEMISTRY SNOMED Code(s): 550138823 (3) CHF (congestive heart failure) Current Visit: No Status: Acute Code(s): I50.9 - HEART FAILURE, UNSPECIFIED SNOMED Code(s): 31194339 (4) Chronic renal failure Current Visit: No Status: Acute Code(s): N18.9 - CHRONIC KIDNEY DISEASE, UNSPECIFIED SNOMED Code(s): 19013434 (5) ESRD (end stage renal disease) on dialysis Current Visit: No Status: Acute Code(s): N18.6 - END STAGE RENAL DISEASE SNOMED Code(s): 637649920 (6) Weakness Current Visit: No Status: Acute Code(s): R53.1 - WEAKNESS SNOMED Code(s): 05009652 Plan: Rule out myocardial infraction and pulmonary embolus. VQ scan has been supposed ordered and is pending. Consult cardiology. Reconcile home medications. Consult for dialysis. Time with Patient: Greater than 30
--- NOTE | 2018-05-14 11:18 | NM ---
EXAMINATION TYPE: NM pul vent and perfuse DATE OF EXAM: 05/14/2018 COMPARISON: Chest radiograph of 05/13/2018 HISTORY: Shortness of breath TECHNIQUE: Utilizing inhalation of 35.1 mCi Tc 99m DTPA aerosol and intravenous injection of 5.2 mCi of Tc 99m MAA, ventilation and perfusion images are acquired post injection in multiple projections. FINDINGS: Matched defects within the upper lungs are more pronounced on ventilation than perfusion as well as w ithin the posterior left midlung. No matched defects are mismatched defects are seen within the lower lungs. Heart appears enlarged. IMPRESSION: Low probability for pulmonary embolus. Upper lung matched defects are greater on ventilation than per fusion suggesting airway disease rather than pulmonary embolus.
[2018-05-14] MEDS ORDERED: WARFARIN 7.5 MG TAB PO SCH (14:30)
[2018-05-14] MEDS ORDERED: WARFARIN 5 MG TAB PO SCH (18:00)
[2018-05-14] MEDS ORDERED: PROMETHAZ-COD 6.25-10 MG/5 ML 5 ML CUP PO PRN (18:45)
--- NOTE | 2018-05-14 20:56 | CONS ---
CONSULTATION HISTORY: Mr. Amado Cheek is a 58-year-old gentleman with end-stage renal disease with a history of previous renal transplantation in the mid 90s with failed transplant and he again is back on dialysis since then. He has history of persistent atrial fibrillation, hypertension, hyperlipidemia, and CAD with previous PCI that was performed, according to him, several years ago here in [place]. Subsequently he has healthcare at [facility]. He has seen his employment evaluator/case manager recently and had also his pallet stone positioner and had a pulmonary vein isolation procedure performed within the last 1 week. He is resting comfortably at the time of my evaluation. Denies any chest pain or shortness of breath. His admission to the hospital was because he presented to the emergency room complaining of some right-sided chest pain with a pleuritic component. His pain was mostly on the right anterior and more right lateral chest and he said he was complaining of fatigue and lack of energy. Because of these pains, he came into the hospital. Less than a week ago, he had a pulmonary vein isolation procedure performed. He is now in sinus rhythm. He is resting comfortably without symptoms. His troponin profile is flat and does not suggest myocardial injury. This gentleman also had a lung perfusion study because of elevated D-dimer and this was a low probability for pulmonary embolism with upper lung match defects that are greater on ventilation than perfusion, suggesting airway disease rather than pulmonary embolism. PAST MEDICAL HISTORY: 1. CAD with prior PCI, details unclear. Lately stable CAD. No evidence of any recent exacerbations of angina. 2. Persistent atrial fib, status post pulmonary vein isolation within the last 1 week. 3. Hypertension. 4. Hyperlipidemia. 5. End-stage renal disease, on 3 times a week dialysis program. 6. Hyperlipidemia. MEDICATIONS: At home include: 1. Hydralazine 75 mg t.i.d. 2. Coumadin 5 mg daily. 3. Lisinopril 10 mg b.i.d. 4. ISMO 20 mg b.i.d. 5. Folic acid 1 mg daily. 6. Carvedilol 3.125 mg b.i.d. 7. Aspirin 81 mg daily. 8. Amiodarone 200 mg daily. ALLERGIES: None. REVIEW OF SYSTEMS: Unremarkable other than above-mentioned facts. PHYSICAL EXAMINATION: Blood pressure is 140/80, pulse rate is about 70 per minute, sinus. HEENT: Unremarkable. Fundus was not examined by me. NECK: Supple. There is JVD of 1 cm. No carotid bruit. HEART: S1-S2 heard normally. Short systolic murmur is audible. LUNGS: Reveal decent air entry. ABDOMEN: Soft. There is no tenderness on the right or left side of the chest. Abdomen is soft, nontender. EXTREMITIES: Lower extremities reveal diminished pulses. No edema. CENTRAL NERVOUS SYSTEM: Grossly within normal limits. IMPRESSION: 1. Atypical chest pain with unremarkable troponins, not suggestive of myocardial injury. 2. Hypertension. 3. Hyperlipidemia. 4. End-stage renal disease on hemodialysis, status post failed kidney transplantation in the past. 5. History of persistent atrial fibrillation status post pulmonary vein isolation within the last 1 week. RECOMMENDATIONS: This patient's pain is atypical. I explained to him that no intervention is necessary from a cardiac standpoint and I advised him to follow with his pallet stone positioner and employment evaluator/case manager in [facility]. His protime and INR are suboptimal at 1.4. I have given him an additional dose of Coumadin today. The patient can be discharged and followed up as an outpatient. I advised him the importance of adequate compliance with Coumadin to keep his INR in the therapeutic range. Thank you very much for the consult. MMODL / IJN: [id number] /
[2018-05-14] MEDS ORDERED: amLODIPine 5 MG TAB PO SCH (21:00)
[2018-05-14] MEDS ORDERED: DARBEPOETIN ALFA 40 MCG/0.4 ML SYRINGE SQ SCH (21:00)
--- NOTE | 2018-05-14 22:53 | CONS ---
CONSULTATION REASON FOR CONSULT: End-stage renal disease. HISTORY OF PRESENT ILLNESS: Patient is a 58-year-old male with end-stage renal disease, on hemodialysis on a Saturday, Saturday, Saturday schedule. Patient was admitted to the hospital with complaints of chest pain, mainly right-sided. He also had some chest pressure. The patient had some cough. He had low-grade fever at home, but no fever in the hospital. He denied any abdominal pain, nausea, vomiting. The patient recently had cardiac ablation at [facility] about one week ago. PAST MEDICAL HISTORY: Coronary artery disease, hyperlipidemia, history of PA, end-stage renal disease, anemia of chronic disease, CKD mineral bone disorder, cardiomyopathy, ejection fraction 30-40 percent, previous history of ventricular tachycardia and SVT, anemia of chronic disease, gout and diverticulosis. PAST SURGICAL HISTORY: Cardiac catheterization, Orthopedic surgery, AV fistula, previous history of kidney transplant, surgery for fracture of the fingers, cardiac catheterization, polypectomy with colonoscopy. Recent cardiac ablation. SOCIAL HISTORY: Patient is a former smoker. No history of drug abuse or alcohol abuse. MEDICATIONS: Medications at home prior to admission include folic acid, Cordarone, lisinopril, Coreg, aspirin, Coumadin, hydralazine. ALLERGIES: None. REVIEW OF SYSTEMS: As per HPI. Other systems negative. EXAMINATION: Patient is comfortable. He is currently seen on hemodialysis, tolerating his treatment well. Blood pressure this afternoon was 149/88, heart rate 86 per minute. Patient is afebrile. Examination of the heart S1, S2. Examination of lungs bilateral breath sounds are heard. Abdomen is soft, nontender. Exam of lower extremities shows no significant edema. 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 There is no reproducible tenderness. LAB: Show sodium 140, potassium 4.3, BUN 37, serum creatinine 9.6, hemoglobin 8.5 g/dL. ASSESSMENT: 1. End-stage renal disease, on hemodialysis on a Saturday, Saturday, Saturday schedule. Patient is currently being dialyzed. He will be dialyzed again on Saturday if he is still in the hospital. 2. Chest pressure seems to be atypical. Troponins are mildly elevated at 0.086. I am not sure if this is significant. 3. Anemia with significant drop in hemoglobin from 15.5-8.5. I doubt if this is accurate. We will need to repeat another CBC tomorrow morning. There is no active bleeding noted at this time. 4. CKD mineral bone disorder. 5. Hypertension with fair control. 6. History of cardiac dysrhythmia, status post cardiac ablation about a week ago at [facility], maintained on Coumadin. PLAN: Hemodialysis today. Check stool for occult blood. Start Aranesp. Repeat CBC in a.m. Thank you for this consultation. We will continue to follow the patient with you during his hospitalization. MMODL / IJN: [id number] /
[2018-05-15 05:28] VITALS: RESP 16
[2018-05-15 06:42] LABS: Basophils % (A) 0 %; Eosinophils # (A) 0.3 k/uL (0-0.7); Eosinophils % (A) 5 %; HCT 26.5 % (39.0-53.0); HGB 8.5 gm/dL (13.0-17.5); Hypochromasia Slight; Lymphocytes # (A) 0.9 k/uL (1.0-4.8); Lymphocytes % (A) 15 %; MCH 29.6 pg (25.0-35.0); MCHC 32.3 g/dL (31.0-37.0); MCV 91.8 fL (80.0-100.0); Mean Platelet Volume 7.5; Monocytes # (A) 0.4 k/uL (0-1.0); Monocytes % (A) 6 %; Neutrophils # (A) 4.4 k/uL (1.3-7.7); Neutrophils % (A) 73 %; Platelet Count 176 k/uL (150-450); RBC 2.89 m/uL (4.30-5.90); RDW 15.8 % (11.5-15.5); WBC 6.1 k/uL (3.8-10.6)
[2018-05-15] MEDS: CARVEDILOL 3.125 MG TAB PO SCH (06:49)
[2018-05-15 06:53] LABS: INR 1.4 (<1.2); Prothrombin Time 14.2 sec (9.0-12.0)
[2018-05-15 07:24] LABS: Calcium 8.2 mg/dL (8.4-10.2); Potassium 3.9 mmol/L (3.5-5.1)
--- NOTE | 2018-05-15 08:01 | P.DS ---
Providers Date of admission: 05/13/18 22:54 Attending physician: aMrcos Molina Consults: 05/13/18 22:06 Consult Physician Routine Consulting Provider: [facility] Consult Reason/Comments: Atypical Chest pain Do you want consulting provider notified?: Yes 05/14/18 08:44 Consult Physician Routine Consulting Provider: Karen Lucia Consult Reason/Comments: Dialysis Do you want consulting provider notified?: Yes Primary care physician: Marcos Molina - Discharge Diagnosis(es) (1) Atypical chest pain Current Visit: Yes Status: Acute (2) Elevated d-dimer Current Visit: Yes Status: Acute (3) CHF (congestive heart failure) Current Visit: No Status: Acute (4) Chronic renal failure Current Visit: No Status: Acute (5) ESRD (end stage renal disease) on dialysis Current Visit: No Status: Acute (6) Weakness Current Visit: No Status: Acute Hospital Course: This is a discharge summary 58-year-old black male essentially admitted for chest pressure. He recently had cardiac ablation for atrial fibrillation and has had chest pain starting several days ago. Myocardial infarctions ruled out however the patient had elevated d-dimer and has underlying history of chronic renal failure. Pulmonary embolus was low probability. The patient has not had any pain since yesterday and given his overall clinical presentation, we will go ahead and DC home once cleared by cardiology Patient Condition at Discharge: Fair Plan - Discharge Summary Discharge Rx Participant: No New Discharge Prescriptions: No Action Folic Acid 1 mg PO DAILY Amiodarone [Cordarone] 200 mg PO QAM Lisinopril 10 mg PO BID Carvedilol [Coreg] 3.125 mg PO BID Aspirin 81 mg PO DAILY Warfarin [Coumadin] 5 mg PO DAILY Isosorbide Dinitrate 20 mg PO TID hydrALAZINE HCL 75 mg PO TID Discharge Medication List Folic Acid 1 mg PO DAILY 03/11/16 [History] Amiodarone [Cordarone] 200 mg PO QAM 08/08/16 [History] Lisinopril 10 mg PO BID 09/14/16 [History] Carvedilol [Coreg] 3.125 mg PO BID 06/27/17 [History] Aspirin 81 mg PO DAILY 07/23/17 [History] Isosorbide Dinitrate 20 mg PO TID 07/23/17 [History] Warfarin [Coumadin] 5 mg PO DAILY 07/23/17 [History] hydrALAZINE HCL 75 mg PO TID 07/23/17 [History] Follow up Appointment(s)/Referral(s): Marcos Molina MD [Primary Care Provider] - 3 Days Discharge Disposition: ADMITTED IP TO THIS HOSP
[2018-05-15 08:35] VITALS: BP 139/83; PULSE 90; TEMP 99
[2018-05-15] MEDS: FOLIC ACID 1 MG TAB PO SCH (08:41)
[2018-05-15] MEDS: ISOSORBIDE DINITRATE 20 MG TAB PO SCH (08:41)
[2018-05-15] MEDS: AMIODARONE 200 MG TAB PO SCH (08:41)
[2018-05-15] MEDS: hydrALAZINE HCL 50 MG TAB PO SCH (08:42)
[2018-05-15] MEDS: ASPIRIN 81 MG PO SCH (08:42)
[2018-05-15] MEDS: LISINOPRIL 10 MG TAB PO SCH (09:34)
== END 2018-05-15 10:11 | disposition home or self-care (01) ==
LOC: EC 18:40 → 3SCARD 22:54
PROVIDERS: ADMIT Family Medicine; ATTEND Family Medicine
DX: R07.89 Other chest pain (principal); R79.89 Other specified abnormal findings of blood chemistry; I13.2 Hypertensive heart and chronic kidney disease with heart failure and with stage 5 chronic kidney disease, or end stage renal disease; N18.6 End stage renal disease; I50.9 Heart failure, unspecified; I25.10 Atherosclerotic heart disease of native coronary artery without angina pectoris; E78.5 Hyperlipidemia, unspecified; R53.83 Other fatigue; Z99.2 Dependence on renal dialysis; M10.9 Gout, unspecified; K57.90 Diverticulosis of intestine, part unspecified, without perforation or abscess without bleeding; F41.9 Anxiety disorder, unspecified; R77.8 Other specified abnormalities of plasma proteins; T86.12 Kidney transplant failure; I48.1 Persistent atrial fibrillation; M89.9 Disorder of bone, unspecified; D63.8 Anemia in other chronic diseases classified elsewhere; R53.1 Weakness; Z79.82 Long term (current) use of aspirin; Z79.01 Long term (current) use of anticoagulants; Z79.899 Other long term (current) drug therapy; Z87.01 Personal history of pneumonia (recurrent); I25.2 Old myocardial infarction; Z94.0 Kidney transplant status; Z95.5 Presence of coronary angioplasty implant and graft; Z86.79 Personal history of other diseases of the circulatory system; Z86.010 Personal history of colon polyps; Z87.891 Personal history of nicotine dependence; Z83.3 Family history of diabetes mellitus; Z82.49 Family history of ischemic heart disease and other diseases of the circulatory system; Z84.1 Family history of disorders of kidney and ureter
CPT/HCPCS: 96372 ×2; 99285; 36415; 93005; 85379; 80053; 80048 ×2; 82550 ×2; 82553 ×2; 84484 ×2; 85025 ×3; 85610 ×2; 85730; 71046; 78582; G0257; G0378 ×3; A9540; A9567; J1650; J0881; 90935

== ENCOUNTER 2018-05-20 01:13 | Inpatient (IN) | payer MEDICARE, BC ==
[2018-05-20] MEDS ORDERED: MORPHINE SULFATE 2 MG/ML SYRINGE IVP STA (02:12)
[2018-05-20] MEDS ORDERED: ONDANSETRON 4 MG/2 ML VIAL IVP STA (02:12)
[2018-05-20 02:35] LABS: Anisocytosis Slight; Basophils % (A) 0 %; Eosinophils # (A) 0.3 k/uL (0-0.7); Eosinophils % (A) 4 %; HGB 7.4 gm/dL (13.0-17.5); Lymphocytes % (A) 14 %; MCH 28.8 pg (25.0-35.0); MCHC 32.1 g/dL (31.0-37.0); MCV 89.8 fL (80.0-100.0); Mean Platelet Volume 8.4; Monocytes # (A) 0.3 k/uL (0-1.0); Monocytes % (A) 4 %; Neutrophils # (A) 5.4 k/uL (1.3-7.7); Neutrophils % (A) 77 %; Platelet Count 170 k/uL (150-450); RBC 2.56 m/uL (4.30-5.90); RDW 16.4 % (11.5-15.5)
[2018-05-20 02:50] LABS: Albumin 3.7 g/dL (3.5-5.0); Calcium 6.9 mg/dL (8.4-10.2); Total Bilirubin 1.1 mg/dL (0.2-1.3); Total Protein 7.1 g/dL (6.3-8.2)
--- NOTE | 2018-05-20 02:53 | XR ---
EXAMINATION TYPE: XR KUB DATE OF EXAM: 05/20/2018 COMPARISON: 04/18/2016 HISTORY: Abdominal pain 2 views supine FINDINGS: There is curvilinear calcification over the right upper quadrant. This is unchanged and is renal parenchymal calcification or calcified cyst on the old CT scan of 03/14/2016. The lung bases ar e clear of consolidation. I see no definite pleural effusion. There are some mildly distended gas-tyrone led loops of small bowel in the mid abdomen. There is no sign of free air. IMPRESSION: Small bowel gas suggestive of mild ileus. This appears similar to last exam.
[2018-05-20 02:56] LABS: INR 4.5 (<1.2); Partial Thromboplastin Time 52.2 sec (22.0-30.0); Prothrombin Time 43.7 sec (9.0-12.0)
[2018-05-20 03:06] LABS: Creatine Kinase MB 0.5 ng/mL (0.0-2.4)
[2018-05-20 03:09] LABS: Potassium 4.2 mmol/L (3.5-5.1)
[2018-05-20 03:11] LABS: Troponin I 0.046 ng/mL (0.000-0.034)
--- NOTE | 2018-05-20 03:18 | XR ---
EXAMINATION TYPE: XR chest 2V DATE OF EXAM: 05/20/2018 COMPARISON: 05/13/2018 HISTORY: Short of breath TECHNIQUE: Frontal and lateral views of the chest are obtained. FINDINGS: Heart is enlarged. There is mild pulmonary vascular congestion. There is no definite pleur al effusion. There are no hilar masses. Bony thorax is intact. IMPRESSION: Mild heart failure that is worse than last exam.
[2018-05-20] MEDS ORDERED: NALOXONE 0.4 MG/ML 1 ML VIAL IV PRN (04:41)
--- NOTE | 2018-05-20 04:41 | ED ---
General Adult HPI - General Source: patient Mode of arrival: ambulatory Limitations: no limitations <Rissa Hernandez - Last Filed: 05/20/18 04:34> <Shyam Arenas - Last Filed: 05/20/18 05:13> - General Chief complaint: Upper Respiratory Infection Stated complaint: revisit-vomiting,weakness Time Seen by Provider: 05/20/18 02:05 - History of Present Illness Initial comments: 58-year-old male patient with multiple complex medical problems presents to the emergency department today for evaluation of right lower chest pain, vomiting, diarrhea, and fatigue. Patient states that for the last couple weeks he has been very drained and fatigued. Patient states that he was recently discharged after being admitted for shortness of breath and chest pain. Patient states that he continues to have right lower chest pain. Patient states he did start vomiting this morning. States he is unable to keep down any food or fluids. States that the pain in his chest does radiate through to his back. He denies any fevers or chills. Denies any hematochezia, melena, or hematemesis. Denies any cough or hemoptysis. Patient denies any recent rash, constipation, back pain , numbness, tingling, dizziness, weakness, hematuria, dysuria, urinary urgency, urinary frequency, headache, visual changes, or any other complaints. (Rissa Hernandez) - Related Data Home Medications Medication Instructions Recorded Confirmed Folic Acid 1 mg PO DAILY 03/11/16 05/13/18 Amiodarone [Cordarone] 200 mg PO QAM 08/08/16 05/13/18 Lisinopril 10 mg PO BID 09/14/16 05/13/18 Carvedilol [Coreg] 3.125 mg PO BID 06/27/17 05/13/18 Aspirin 81 mg PO DAILY 07/23/17 05/13/18 Isosorbide Dinitrate 20 mg PO TID 07/23/17 05/13/18 Warfarin [Coumadin] 5 mg PO DAILY 07/23/17 05/13/18 hydrALAZINE HCL 75 mg PO TID 07/23/17 05/13/18 Previous Rx's Medication Instructions Recorded Darbepoetin Bryson [Aranesp] 40 mcg SQ Q7D #4 syringe 05/15/18 Allergies Allergy/AdvReac Type Severity Reaction Status Date / Time No Known Allergies Allergy Verified 05/20/18 01:22 Review of Systems ROS Other: All systems not noted in ROS Statement are negative. <PiperlaxmiRissa Mark - Last Filed: 05/20/18 04:34> ROS Other: All systems not noted in ROS Statement are negative. <DagobertoShyam - Last Filed: 05/20/18 05:13> ROS Statement: Those systems with pertinent positive or pertinent negative responses have been documented in the HPI. Past Medical History Past Medical History: Atrial Fibrillation, Coronary Artery Disease (CAD), Heart Failure, Dialysis, Hyperlipidemia, Hypertension, Myocardial Infarction (NH), Pneumonia, Renal Disease, Supraventricular Tachycardia (SVT) Additional Past Medical History / Comment(s): CKD with hemodialysis on //Sat, afib with ablation, cardiomyopathy, nonsustained VTach, gout in multiple joints , diverticulosis, benign polyps, pneumonia with sepsis. Last Myocardial Infarction Date:: 2014 History of Any Multi-Drug Resistant Organisms: None Reported Past Surgical History: Cardiac Ablation, Heart Catheterization, Heart Catheterization With Stent, Orthopedic Surgery Additional Past Surgical History / Comment(s): Cardioversion, L arm dialysis shunt, 1993 kidney transplant, L hand finger fracure with surgery, colonoscopies with bening polypectomies. Past Anesthesia/Blood Transfusion Reactions: No Reported Reaction Additional Past Anesthesia/Blood Transfusion Reaction / Comment(s): Pt has received blood in past without reaction. Date of Last Stent Placement:: 06/2014 Past Psychological History: Anxiety Smoking Status: Former smoker - Past Family History Father Family Medical History: Unable to Obtain Additional Family Medical History / Comment(s): WAS RAISED BY STEP DAD. Mother Family Medical History: Congestive Heart Failure (CHF), Diabetes Mellitus, Renal Disease Additional Family Medical History / Comment(s): Mother at the age of 61 yrs. <DavidRissa M - Last Filed: 05/20/18 04:34> General Exam Limitations: no limitations General appearance: alert, in no apparent distress, other (This is a well- developed, well-nourished adult male patient in no acute distress. Vital signs upon presentation are temperature 98.2F, pulse 89, respirations 20, blood pressure 146/89, pulse ox 100% on room air.) Eye exam: Present: normal appearance, PERRL, EOMI. Absent: scleral icterus, conjunctival injection, periorbital swelling ENT exam: Present: normal exam, normal oropharynx, mucous membranes moist Respiratory exam: Present: normal lung sounds bilaterally. Absent: respiratory distress, wheezes, rales, rhonchi, stridor Cardiovascular Exam: Present: regular rate, normal rhythm, normal heart sounds. Absent: systolic murmur, diastolic murmur, rubs, gallop, clicks GI/Abdominal exam: Present: soft, tenderness (Right upper quadrant and midepigastric tenderness), normal bowel sounds. Absent: distended, guarding, rebound, rigid Neurological exam: Present: alert, oriented X3, CN II-XII intact Psychiatric exam: Present: normal affect, normal mood Skin exam: Present: warm, dry, intact, normal color. Absent: rash <Rissa Hernandez - Last Filed: 05/20/18 04:34> Vital Signs 05/20/18 05/20/18 05/20/18 01:18 01:47 02:37 Temperature 98.2 F Pulse Rate 89 54 L 77 Respiratory 20 18 18 Rate Blood Pressure 146/89 139/94 148/96 O2 Sat by Pulse 100 100 96 Oximetry 05/20/18 05/20/18 03:56 05:02 Temperature 98.1 F Pulse Rate 79 79 Respiratory 17 18 Rate Blood Pressure 146/98 152/96 O2 Sat by Pulse 97 99 Oximetry EKG Findings - EKG Comments: EKG Findings:: EKG obtained at 02 56 shows sinus rhythm with first-degree AV block, left axis deviation, left ventricular hypertrophy, prolonged QT interval. Ventricular rate is 76, OK interval 210, QRS duration 102, QTc 464, QTc 522. No evidence of significant ST elevation or depression. <Rissa Hernandez - Last Filed: 05/20/18 04:34> Medical Decision Making - Lab Data Result diagrams: 05/20/18 02:16 05/20/18 02:16 - Radiology Data Radiology results: report reviewed, image reviewed <Rissa Hernandez - Last Filed: 05/20/18 04:34> - Lab Data Result diagrams: 05/20/18 02:16 05/20/18 02:16 <Shyam Arenas - Last Filed: 05/20/18 05:13> - Medical Decision Making 58 year-old male patient presents to the emergency department today for evaluation of multiple complaints. Patient is reporting right lower chest pain , vomiting, diarrhea, and fatigue. Physical examination did reveal right upper quadrant abdominal tenderness. Chest x-ray showed mild congestive heart failure worse than last exam. Labs reviewed and did reveal hemoglobin of 7.4 which is decreased from 15.5 on 05/13/2018. INR is 4.5, BUN 34, creatinine 7 calcium is 6.9. Troponin chronically elevated but at 0.046 today. KUB x-ray of the abdomen showed no acute abnormalities. Given patient's physical findings we will admit for symptom Anemia. Given patient's abdominal tenderness we will perform ultrasound of the right upper quadrant in the morning. I did discuss findings, results, and plan with the patient, he is agreeable. (Rissa Hernandez) I saw this patient in conjunction with the physician executive marketing assistant. I performed independent history and physical exam. Agree with case management. (Shyam Arenas) - Lab Data Lab Results 05/20/18 05/20/18 05/20/18 Range/Units 02:16 02:16 02:16 WBC 7.0 (3.8-10.6) k/uL RBC 2.56 L (4.30-5.90) m/uL Hgb 7.4 L (13.0-17.5) gm/dL Hct 23.0 L (39.0-53.0) % MCV 89.8 (80.0-100.0) fL MCH 28.8 (25.0-35.0) pg MCHC 32.1 (31.0-37.0) g/dL RDW 16.4 H (11.5-15.5) % Plt Count 170 (150-450) k/uL Neutrophils % 77 % Lymphocytes % 14 % Monocytes % 4 % Eosinophils % 4 % Basophils % 0 % Neutrophils # 5.4 (1.3-7.7) k/uL Lymphocytes # 1.0 (1.0-4.8) k/uL Monocytes # 0.3 (0-1.0) k/uL Eosinophils # 0.3 (0-0.7) k/uL Basophils # 0.0 (0-0.2) k/uL Anisocytosis Slight PT (9.0-12.0) sec INR (<1.2) APTT (22.0-30.0) sec Sodium 137 (137-145) mmol/L Potassium 4.2 (3.5-5.1) mmol/L Chloride 98 (98-107) mmol/L Carbon Dioxide 27 (22-30) mmol/L Anion Gap 12 mmol/L BUN 34 H (9-20) mg/dL Creatinine 7.00 H (0.66-1.25) mg/dL Est GFR (CKD-EPI)AfAm 9 (>60 ml/min/1.73 sqM) Est GFR (CKD-EPI)NonAf 8 (>60 ml/min/1.73 sqM) Glucose 98 (74-99) mg/dL Calcium 6.9 L (8.4-10.2) mg/dL Total Bilirubin 1.1 (0.2-1.3) mg/dL AST 22 (17-59) U/L ALT 14 L (21-72) U/L Alkaline Phosphatase 138 H (38-126) U/L Total Creatine Kinase 98 (55-170) U/L CK-MB (CK-2) 0.5 (0.0-2.4) ng/mL CK-MB (CK-2) Rel Index 0.5 Troponin I 0.046 H* (0.000-0.034) ng/mL Total Protein 7.1 (6.3-8.2) g/dL Albumin 3.7 (3.5-5.0) g/dL Amylase 80 (30-110) U/L Lipase 81 (23-300) U/L 05/20/18 Range/Units 02:16 WBC (3.8-10.6) k/uL RBC (4.30-5.90) m/uL Hgb (13.0-17.5) gm/dL Hct (39.0-53.0) % MCV (80.0-100.0) fL MCH (25.0-35.0) pg MCHC (31.0-37.0) g/dL RDW (11.5-15.5) % Plt Count (150-450) k/uL Neutrophils % % Lymphocytes % % Monocytes % % Eosinophils % % Basophils % % Neutrophils # (1.3-7.7) k/uL Lymphocytes # (1.0-4.8) k/uL Monocytes # (0-1.0) k/uL Eosinophils # (0-0.7) k/uL Basophils # (0-0.2) k/uL Anisocytosis PT 43.7 H (9.0-12.0) sec INR 4.5 H (<1.2) APTT 52.2 H (22.0-30.0) sec Sodium (137-145) mmol/L Potassium (3.5-5.1) mmol/L Chloride (98-107) mmol/L Carbon Dioxide (22-30) mmol/L Anion Gap mmol/L BUN (9-20) mg/dL Creatinine (0.66-1.25) mg/dL Est GFR (CKD-EPI)AfAm (>60 ml/min/1.73 sqM) Est GFR (CKD-EPI)NonAf (>60 ml/min/1.73 sqM) Glucose (74-99) mg/dL Calcium (8.4-10.2) mg/dL Total Bilirubin (0.2-1.3) mg/dL AST (17-59) U/L ALT (21-72) U/L Alkaline Phosphatase (38-126) U/L Total Creatine Kinase (55-170) U/L CK-MB (CK-2) (0.0-2.4) ng/mL CK-MB (CK-2) Rel Index Troponin I (0.000-0.034) ng/mL Total Protein (6.3-8.2) g/dL Albumin (3.5-5.0) g/dL Amylase (30-110) U/L Lipase (23-300) U/L - Radiology Data Two-view x-ray of the chest is obtained. Heart is enlarged. There is mild pulmonary vascular congestion. No definite pleural effusion. There are no hilar masses. Bony thorax is intact. Impression by Dr. Garrett shows mild heart failure that is worse than last exam. Two-view x-ray of the abdomen is obtained. Report was reviewed in its entirety. Impression by Dr. Garrett shows small bowel gas suggestive of mild ileus. This appears similar to last exam. (Rissa Hernandez) Disposition Decision to Admit Reason: Admit from EC Decision Date: 05/20/18 Decision Time: 04:41 <Rissa Hernandez - Last Filed: 05/20/18 04:34> <Shyam Arenas - Last Filed: 05/20/18 05:13> Clinical Impression: Symptomatic anemia, Right upper quadrant pain Disposition: ADMITTED IP TO THIS HOSP Condition: Serious
--- NOTE | 2018-05-20 07:35 | US ---
EXAMINATION TYPE: US abdomen limited DATE OF EXAM: 05/20/2018 COMPARISON: US & CT from 2016 CLINICAL HISTORY: Pain. RUQ pain EXAM MEASUREMENTS: Liver Length: 18.1 cm Gallbladder Wall: 0.4 cm CBD: 0.5 cm Right Kidney: 9.7 x 3.9 x 5.2 cm, [place] Transplant kidney right pelvis: 10.7 x 3.8 x 5.1 cm History of renal transplant in 1993 per patient. Pancreas: visualized portions wnl Liver: enlarged at 18.1 cm Gallbladder: No stones seen Evidence for sonographic Castro's sign: Yes CBD: wnl Right Kidney: [place] kidney is atropic and has multiple probable cysts, partially visualized. Right transplant kidney has a thinned cortex. IMPRESSION: 1. There is slight thickening of the bladder fundal wall, likely due to incomplete distention. No cho lelithiasis or further evidence of acute cholecystitis. HIDA scan with CCK could be performed to eval uate for biliary dysfunction. 2. Very mild hepatomegaly although there is a homogeneous echotexture of the liver with no underlying hepatocellular disease suspected sonographically. 3. Cortical thinning of the right pelvic renal transplant without hydronephrosis. 4. [place] right renal atrophy, poorly visualized, with probable renal cysts.
[2018-05-20] MEDS ORDERED: ONDANSETRON 4 MG/2 ML VIAL IVP PRN (10:03)
[2018-05-20] MEDS ORDERED: DARBEPOETIN ALFA 40 MCG/0.4 ML SYRINGE SQ SCH (10:15)
[2018-05-20] MEDS: MORPHINE SULFATE 2 MG/ML SYRINGE IVP PRN ×3 (10:24→19:43)
[2018-05-20] MEDS: LISINOPRIL 10 MG TAB PO SCH ×2 (11:58→22:00)
[2018-05-20] MEDS: hydrALAZINE HCL 25 MG TAB PO SCH ×3 (11:59→22:00)
[2018-05-20] MEDS: CARVEDILOL 3.125 MG TAB PO SCH ×2 (12:00→17:54)
[2018-05-20] MEDS: AMIODARONE 200 MG TAB PO SCH (12:00)
[2018-05-20] MEDS: ISOSORBIDE DINITRATE 20 MG TAB PO SCH ×3 (12:24→21:59)
--- NOTE | 2018-05-20 13:22 | P.HPIM ---
History of Present Illness H&P Date: 05/20/18 Chief Complaint: Right sided chest wall and right upper quadran This is a history and physical on a 58-year-old black male with underlying history of end-stag who recently had ablation several weeks ago. He was actually admitted for observation related to chest pain as consulted and did actually saw me in the office, and at that time he was not having significant symptoms went on. He has an underlying history of multifactorial anemia, possibly related to chronic kidney disease. The patient is now admitted for appropriate symptomatic anemia and continued chest pain. Right upper quadrant ultrasound is pending. Review of Systems Constitutional: Denies chills, Denies fever Eyes: denies blurred vision, denies pain Ears, nose, mouth and throat: Denies headache, Denies sore throat Cardiovascular: Denies chest pain, Denies shortness of breath Respiratory: Denies cough Gastrointestinal: Reports as per HPI Musculoskeletal: Denies myalgias Neurological: Denies numbness, Denies weakness Psychiatric: Denies anxiety, Denies depression Past Medical History Past Medical History: Atrial Fibrillation, Coronary Artery Disease (CAD), Heart Failure, Dialysis, Hyperlipidemia, Hypertension, Myocardial Infarction ([place]), Pneumonia, Renal Disease, Supraventricular Tachycardia (SVT) Additional Past Medical History / Comment(s): Pt recently admitted to [facility] on with atypical chest pain, elevated D Dimer. Other hx: CKD with hemodialysis on //Sat, afib with ablation, cardiomyopathy, nonsustained VTach , gout in multiple joints, diverticulosis, benign polyps, pneumonia with sepsis. Last Myocardial Infarction Date:: 2014 History of Any Multi-Drug Resistant Organisms: None Reported Past Surgical History: Cardiac Ablation, Heart Catheterization, Heart Catheterization With Stent, Orthopedic Surgery Additional Past Surgical History / Comment(s): Cardioversion, L arm dialysis shunt, 1994 kidney transplant, L hand finger fracure with surgery, colonoscopies with bening polypectomies. Past Anesthesia/Blood Transfusion Reactions: No Reported Reaction Additional Past Anesthesia/Blood Transfusion Reaction / Comment(s): Pt has received blood in past without reaction. Date of Last Stent Placement:: 06/2014 Smoking Status: Former smoker - Past Family History Father Family Medical History: Unable to Obtain Additional Family Medical History / Comment(s): WAS RAISED BY STEP DAD. Mother Family Medical History: Congestive Heart Failure (CHF), Diabetes Mellitus, Renal Disease Additional Family Medical History / Comment(s): Mother at the age of 61 yrs. Medications and Allergies Home Medications Medication Instructions Recorded Confirmed Type RX: Folic Acid 1 mg PO DAILY 03/11/16 05/20/18 History RX: Amiodarone [Cordarone] 200 mg PO QAM 08/08/16 05/20/18 History RX: Lisinopril 10 mg PO BID 09/14/16 05/20/18 History RX: Carvedilol [Coreg] 3.125 mg PO BID 06/27/17 05/20/18 History RX: Aspirin 81 mg PO DAILY 07/23/17 05/20/18 History RX: Isosorbide Dinitrate 20 mg PO TID 07/23/17 05/20/18 History RX: Warfarin [Coumadin] 5 mg PO DAILY 07/23/17 05/20/18 History RX: hydrALAZINE HCL 75 mg PO TID 07/23/17 05/20/18 History RX: Darbepoetin Bryson [Aranesp] 40 mcg SQ Q7D #4 syringe 05/15/18 05/20/18 Rx Allergies Allergy/AdvReac Type Severity Reaction Status Date / Time No Known Allergies Allergy Verified 05/20/18 07:26 Physical Exam Vitals: Vital Signs Temp Pulse Pulse Resp BP BP Pulse Ox 05/20/18 12:02 97.9 F 75 18 154/91 100 05/20/18 07:13 98.7 F 84 18 150/96 100 05/20/18 05:02 98.1 F 79 18 152/96 99 05/20/18 03:56 79 17 146/98 97 05/20/18 02:37 77 18 148/96 96 05/20/18 01:47 54 L 18 139/94 100 05/20/18 01:18 98.2 F 89 20 146/89 100 Intake and Output 05/19/18 05/20/18 05/20/18 22:59 06:59 14:59 Other: Weight 90.718 kg 89.5 kg Results CBC & Chem 7: 05/20/18 02:16 05/20/18 02:16 Labs: Abnormal Lab Results - Last 24 Hours (Table) 05/20/18 05/20/18 05/20/18 Range/Units 02:16 02:16 02:16 RBC 2.56 L (4.30-5.90) m/uL Hgb 7.4 L (13.0-17.5) gm/dL Hct 23.0 L (39.0-53.0) % RDW 16.4 H (11.5-15.5) % PT (9.0-12.0) sec INR (<1.2) APTT (22.0-30.0) sec BUN 34 H (9-20) mg/dL Creatinine 7.00 H (0.66-1.25) mg/dL Calcium 6.9 L (8.4-10.2) mg/dL ALT 14 L (21-72) U/L Alkaline Phosphatase 138 H (38-126) U/L Troponin I 0.046 H* (0.000-0.034) ng/mL 05/20/18 Range/Units 02:16 RBC (4.30-5.90) m/uL Hgb (13.0-17.5) gm/dL Hct (39.0-53.0) % RDW (11.5-15.5) % PT 43.7 H (9.0-12.0) sec INR 4.5 H (<1.2) APTT 52.2 H (22.0-30.0) sec BUN (9-20) mg/dL Creatinine (0.66-1.25) mg/dL Calcium (8.4-10.2) mg/dL ALT (21-72) U/L Alkaline Phosphatase (38-126) U/L Troponin I (0.000-0.034) ng/mL Thrombosis Risk Factor Assmnt - Choose All That Apply Any of the Below Risk Factors Present?: Yes Each Factor Represents 1 point: Age 41-60 years, Obesity (BMI >25) Other Risk Factors: No Other congenital or acquired thrombophilia - If yes, enter type in comment: No Thrombosis Risk Factor Assessment Total Risk Factor Score: 2 Thrombosis Risk Factor Assessment Level: Low Risk Assessment and Plan (1) At risk for readmission to hospital Current Visit: Yes Status: Acute Code(s): Z91.89 - OTH PERSONAL RISK FACTORS , NOT ELSEWHERE CLASSIFIED SNOMED Code(s): 1927435267749 (2) Right upper quadrant pain Current Visit: Yes Status: Acute Code(s): R10.11 - RIGHT UPPER QUADRANT PAIN SNOMED Code(s): 845797579 (3) Symptomatic anemia Current Visit: Yes Status: Acute Code(s): D64.9 - ANEMIA, UNSPECIFIED SNOMED Code(s): 047391653 (4) Chronic renal failure Current Visit: No Status: Acute Code(s): N18.9 - CHRONIC KIDNEY DISEASE, UNSPECIFIED SNOMED Code(s): 93802118 (5) Generalized weakness Current Visit: No Status: Acute Code(s): R53.1 - WEAKNESS SNOMED Code(s): 54996262 (6) HTN (hypertension) Current Visit: No Status: Acute Code(s): I10 - ESSENTIAL (PRIMARY) HYPERTENSION SNOMED Code(s): 46621927 Plan: Go ahead and check CBC and CMP in a.m. Consult nephrology. If chest pain continues, cardiology consult should be instituted. Reconcile home medications. See orders otherwise.
[2018-05-21] MEDS: MORPHINE SULFATE 2 MG/ML SYRINGE IVP PRN ×5 (01:02→20:33)
--- NOTE | 2018-05-21 08:12 | P.PN ---
Subjective Progress Note Date: 05/21/18 Principal diagnosis: This can impression a 58-year-old black male essentially admitted for right- sided chest pain and end-stage renal disease with supratherapeutic INR. Objective - Vital Signs Vital signs: Vital Signs Temp 98.1 F 05/21/18 05:00 Pulse 78 05/21/18 05:00 Resp 17 05/21/18 05:00 BP 155/91 05/21/18 05:00 Pulse Ox 99 05/21/18 05:00 Intake & Output 05/20/18 05/21/18 05/21/18 18:59 06:59 18:59 Intake Total 250 Balance 250 Weight 89.5 kg 89.5 kg Intake: Oral 250 Other: # Voids 0 0 - Constitutional General appearance: Present: average body habitus - EENT Eyes: Absent: abnormal pupil - Neck Neck: Absent: lymphadenopathy - Respiratory Respiratory: bilateral: CTA - Cardiovascular Rhythm: regular Heart sounds: normal: S1, S2 Abnormal Heart Sounds: Absent: S3 Gallop - Gastrointestinal General gastrointestinal: Present: soft, splenomegaly. Absent: tenderness - Integumentary Integumentary: Present: normal. Absent: rash - Psychiatric Psychiatric: Present: A&O x's 3 - Labs CBC & Chem 7: 05/20/18 02:16 05/20/18 02:16 Assessment and Plan (1) At risk for readmission to hospital Current Visit: Yes Status: Acute Code(s): Z91.89 - OTH PERSONAL RISK FACTORS , NOT ELSEWHERE CLASSIFIED SNOMED Code(s): 1949057892823 (2) Right upper quadrant pain Current Visit: Yes Status: Acute Code(s): R10.11 - RIGHT UPPER QUADRANT PAIN SNOMED Code(s): 014168469 (3) Symptomatic anemia Current Visit: Yes Status: Acute Code(s): D64.9 - ANEMIA, UNSPECIFIED SNOMED Code(s): 697763540 (4) Chronic renal failure Current Visit: No Status: Acute Code(s): N18.9 - CHRONIC KIDNEY DISEASE, UNSPECIFIED SNOMED Code(s): 50595778 (5) Generalized weakness Current Visit: No Status: Acute Code(s): R53.1 - WEAKNESS SNOMED Code(s): 45069555 (6) HTN (hypertension) Current Visit: No Status: Acute Code(s): I10 - ESSENTIAL (PRIMARY) HYPERTENSION SNOMED Code(s): 10460654 Plan: Advance diet today. Dialysis will be done today. Anticipate discharge in next 24 hours.
[2018-05-21 08:37] LABS: INR 4.4 (<1.2); Prothrombin Time 42.4 sec (9.0-12.0)
[2018-05-21 08:40] LABS: Anisocytosis Slight; Basophils % (A) 0 %; Eosinophils # (A) 0.3 k/uL (0-0.7); Eosinophils % (A) 4 %; HCT 23.1 % (39.0-53.0); HGB 7.3 gm/dL (13.0-17.5); Hypochromasia Slight; Lymphocytes # (A) 0.8 k/uL (1.0-4.8); Lymphocytes % (A) 12 %; MCH 28.9 pg (25.0-35.0); MCHC 31.5 g/dL (31.0-37.0); Mean Platelet Volume 7.6; Monocytes # (A) 0.2 k/uL (0-1.0); Monocytes % (A) 3 %; Neutrophils # (A) 5.4 k/uL (1.3-7.7); Neutrophils % (A) 79 %; Platelet Count 172 k/uL (150-450); RBC 2.51 m/uL (4.30-5.90); RDW 16.8 % (11.5-15.5); WBC 6.9 k/uL (3.8-10.6)
[2018-05-21 08:56] LABS: Albumin 3.7 g/dL (3.5-5.0); Calcium 6.9 mg/dL (8.4-10.2); Potassium 4.6 mmol/L (3.5-5.1); Total Bilirubin 1.4 mg/dL (0.2-1.3); Total Protein 7.1 g/dL (6.3-8.2)
[2018-05-21] MEDS ORDERED: ASPIRIN 81 MG PO SCH (09:00)
[2018-05-21] MEDS: LISINOPRIL 10 MG TAB PO SCH ×2 (09:36→20:33)
[2018-05-21] MEDS: AMIODARONE 200 MG TAB PO SCH (09:36)
[2018-05-21] MEDS: hydrALAZINE HCL 25 MG TAB PO SCH ×3 (09:36→22:06)
[2018-05-21] MEDS: CARVEDILOL 3.125 MG TAB PO SCH ×2 (09:36→18:03)
[2018-05-21] MEDS: ISOSORBIDE DINITRATE 20 MG TAB PO SCH ×3 (09:37→22:06)
[2018-05-21] MEDS: FOLIC ACID 1 MG TAB PO SCH (09:37)
--- NOTE | 2018-05-21 09:39 | P.NPCON ---
History of Present Illness - Reason for Consult end stage renal disease - History of Present Illness Reason for consultation: End-stage renal disease History of present illness: Patient is a 58-year-old male seen in renal consultation for end-stage renal disease. He is maintained on hemodialysis on a Saturday schedule via left upper extremity AV fistula. Patient presented to the hospital with generalized weakness which has been going on for the last 2 weeks. He's also been complaining of vomiting and diarrhea along with right- sided chest and abdominal discomfort. Last hemodialysis was on Saturday. Patient states he's currently hungry and wants to eat. No further vomiting or diarrhea. Continues to have abdominal discomfort. Abdominal ultrasound revealed slight thickening of the bladder from the wall. His diet has been advanced as of this morning. Patient has history of coronary artery disease and had a stent placed 3 years ago. Additionally he had depressed ejection fraction and was on a continuous milrinone drip which was discontinued a few months ago. He follows out of [facility] heart failure program. Hemodynamically stable. Vital signs are stable. General: The patient appeared well nourished and normally developed. HEENT: Head exam is unremarkable. Neck is without jugular venous distension. LUNGS: Lungs are clear to auscultation and percussion. Breath sounds decreased. HEART: Rate and Rhythm are regular. First and second heart sounds normal. No murmurs, rubs or gallops. ABDOMEN: Abdominal exam reveals normal bowel sounds. Non-tender and non- distended. No evidence of peritonitis. EXTREMITITES: No clubbing, cyanosis, or edema. Past Medical History Past Medical History: Atrial Fibrillation, Coronary Artery Disease (CAD), Heart Failure, Dialysis, Hyperlipidemia, Hypertension, Myocardial Infarction ([place]), Pneumonia, Renal Disease, Supraventricular Tachycardia (SVT) Additional Past Medical History / Comment(s): Pt recently admitted to [facility] on with atypical chest pain, elevated D Dimer. Other hx: CKD with hemodialysis on //Sat, afib with ablation, cardiomyopathy, nonsustained VTach , gout in multiple joints, diverticulosis, benign polyps, pneumonia with sepsis. Last Myocardial Infarction Date:: 2014 History of Any Multi-Drug Resistant Organisms: None Reported Past Surgical History: Cardiac Ablation, Heart Catheterization, Heart Catheterization With Stent, Orthopedic Surgery Additional Past Surgical History / Comment(s): Cardioversion, L arm dialysis shunt, 1994 kidney transplant, L hand finger fracure with surgery, colonoscopies with bening polypectomies. Past Anesthesia/Blood Transfusion Reactions: No Reported Reaction Additional Past Anesthesia/Blood Transfusion Reaction / Comment(s): Pt has received blood in past without reaction. Date of Last Stent Placement:: 06/2014 Smoking Status: Former smoker - Past Family History Father Family Medical History: Unable to Obtain Additional Family Medical History / Comment(s): WAS RAISED BY STEP DAD. Mother Family Medical History: Congestive Heart Failure (CHF), Diabetes Mellitus, Renal Disease Additional Family Medical History / Comment(s): Mother at the age of 61 yrs. Medications and Allergies Home Medications Medication Instructions Recorded Confirmed Type Folic Acid 1 mg PO DAILY 03/11/16 05/20/18 History Amiodarone [Cordarone] 200 mg PO QAM 08/08/16 05/20/18 History Lisinopril 10 mg PO BID 09/14/16 05/20/18 History Carvedilol [Coreg] 3.125 mg PO BID 06/27/17 05/20/18 History Aspirin 81 mg PO DAILY 07/23/17 05/20/18 History Isosorbide Dinitrate 20 mg PO TID 07/23/17 05/20/18 History Warfarin [Coumadin] 5 mg PO DAILY 07/23/17 05/20/18 History hydrALAZINE HCL 75 mg PO TID 07/23/17 05/20/18 History Darbepoetin Bryson [Aranesp] 40 mcg SQ Q7D #4 syringe 05/15/18 05/20/18 Rx Allergies Allergy/AdvReac Type Severity Reaction Status Date / Time No Known Allergies Allergy Verified 05/20/18 07:26 Physical Exam Vitals: Vital Signs Temp Pulse Pulse Resp BP Pulse Ox 05/21/18 05:00 98.1 F 78 17 155/91 99 05/21/18 00:00 70 18 05/20/18 21:13 98 F 75 16 139/87 100 05/20/18 12:02 97.9 F 75 18 154/91 100 Intake and Output 05/20/18 05/21/18 05/21/18 22:59 06:59 14:59 Intake Total 200 50 Balance 200 50 Intake: Oral 200 50 Other: # Voids 0 Weight 89.5 kg Results - Lab Results Most recent lab results Calcium 6.9 mg/dL (8.4-10.2) L 05/20/18 02:16 05/21/18 08:01 05/20/18 02:16 Assessment and Plan Plan: Assessment: 1. End-stage renal disease maintained on hemodialysis on a Saturday schedule via left upper extremity AV fistula. 2. History of failed renal transplant. 3. Hypertension with chronic kidney disease. 4. Systolic CHF. Patient follows out of [facility] heart failure program. Currently compensated. 5. Chronic kidney disease mineral bone disease. 6. Anemia of chronic kidney disease maintained on Aranesp. 7. Vomiting and diarrhea with mild thickening of bladder fundal wall noted on ultrasound. Better. Plan: Hemodialysis today. Diet has been advanced as of this morning. Check iron studies. Thank you for the consultation. I will continue to follow the patient with you during his hospital stay.
[2018-05-21 17:15] LABS: Iron Saturation 15.38 (15.00-50.00)
[2018-05-21 22:46] VITALS: RESP 18; TEMP 97.9
[2018-05-22] MEDS: MORPHINE SULFATE 2 MG/ML SYRINGE IVP PRN ×3 (00:18→11:36)
[2018-05-22 05:17] VITALS: BP 126/78; PULSE 79
[2018-05-22 08:14] LABS: INR 4.9 (<1.2); Prothrombin Time 47.4 sec (9.0-12.0)
[2018-05-22] MEDS: hydrALAZINE HCL 25 MG TAB PO SCH (08:22)
--- NOTE | 2018-05-22 08:22 | P.DS ---
Providers Date of admission: 05/20/18 04:41 Attending physician: Marcos Molina Consults: 05/20/18 17:53 Consult Physician Urgent Consulting Provider: Karen Lucia Consult Reason/Comments: Dialysis Do you want consulting provider notified?: Yes Primary care physician: Marcos Molina - Discharge Diagnosis(es) (1) At risk for readmission to hospital Current Visit: Yes Status: Acute (2) Right upper quadrant pain Current Visit: Yes Status: Acute (3) Symptomatic anemia Current Visit: Yes Status: Acute (4) Chronic renal failure Current Visit: No Status: Acute (5) Generalized weakness Current Visit: No Status: Acute (6) HTN (hypertension) Current Visit: No Status: Acute Hospital Course: This is a discharge summary an 58-year-old black male essentially admitted for symptom anemia and chest pain. He also right upper quadrant pain. Gallbladder was ruled out as far as pathology. The patient is tolerating diet and will be discharged in stable condition to follow-up with me in 2 CBC in about one week. Patient Condition at Discharge: Serious Plan - Discharge Summary Discharge Rx Participant: No New Discharge Prescriptions: No Action Folic Acid 1 mg PO DAILY Amiodarone [Cordarone] 200 mg PO QAM Lisinopril 10 mg PO BID Carvedilol [Coreg] 3.125 mg PO BID Aspirin 81 mg PO DAILY Warfarin [Coumadin] 5 mg PO DAILY Isosorbide Dinitrate 20 mg PO TID hydrALAZINE HCL 75 mg PO TID Darbepoetin Bryson [Aranesp] 40 mcg SQ Q7D #4 syringe Discharge Medication List Folic Acid 1 mg PO DAILY 03/11/16 [History] Amiodarone [Cordarone] 200 mg PO QAM 08/08/16 [History] Lisinopril 10 mg PO BID 09/14/16 [History] Carvedilol [Coreg] 3.125 mg PO BID 06/27/17 [History] Aspirin 81 mg PO DAILY 07/23/17 [History] Isosorbide Dinitrate 20 mg PO TID 07/23/17 [History] Warfarin [Coumadin] 5 mg PO DAILY 07/23/17 [History] hydrALAZINE HCL 75 mg PO TID 07/23/17 [History] Darbepoetin Bryson [Aranesp] 40 mcg SQ Q7D #4 syringe 05/15/18 [Rx] Follow up Appointment(s)/Referral(s): Marcos Molina MD [Primary Care Provider] - 1-2 days
[2018-05-22] MEDS: FOLIC ACID 1 MG TAB PO SCH (08:23)
[2018-05-22] MEDS: LISINOPRIL 10 MG TAB PO SCH (08:23)
[2018-05-22] MEDS: AMIODARONE 200 MG TAB PO SCH (08:23)
[2018-05-22] MEDS: CARVEDILOL 3.125 MG TAB PO SCH (08:23)
[2018-05-22] MEDS: ISOSORBIDE DINITRATE 20 MG TAB PO SCH (08:23)
== END 2018-05-22 12:00 | disposition home or self-care (01) | DRG 683 ==
LOC: EC 01:13 → 3NMEDONC 04:41
PROVIDERS: ADMIT Family Medicine; ATTEND Family Medicine
PROC: 5A1D70Z Performance of Urinary Filtration, Intermittent, Less than 6 Hours Per Day (ICD-10-PCS; principal; 2018-05-21)
DX: N18.6 End stage renal disease (principal); D63.1 Anemia in chronic kidney disease; I13.2 Hypertensive heart and chronic kidney disease with heart failure and with stage 5 chronic kidney disease, or end stage renal disease; I42.9 Cardiomyopathy, unspecified; I50.20 Unspecified systolic (congestive) heart failure; T86.12 Kidney transplant failure; E78.5 Hyperlipidemia, unspecified; I25.10 Atherosclerotic heart disease of native coronary artery without angina pectoris; I25.2 Old myocardial infarction; I48.91 Unspecified atrial fibrillation; J06.9 Acute upper respiratory infection, unspecified; R79.1 Abnormal coagulation profile; Z79.01 Long term (current) use of anticoagulants; Z79.82 Long term (current) use of aspirin; Z79.899 Other long term (current) drug therapy; Z82.49 Family history of ischemic heart disease and other diseases of the circulatory system; Z83.3 Family history of diabetes mellitus; Z87.891 Personal history of nicotine dependence; Z95.5 Presence of coronary angioplasty implant and graft; Z99.2 Dependence on renal dialysis; Z87.01 Personal history of pneumonia (recurrent); M10.9 Gout, unspecified; R07.9 Chest pain, unspecified; Z84.1 Family history of disorders of kidney and ureter; E83.9 Disorder of mineral metabolism, unspecified; R19.7 Diarrhea, unspecified; R11.10 Vomiting, unspecified
CPT/HCPCS: 36415; 71046; 74018; 76705; 80053; 82150; 82550; 82553; 82728; 83540; 83550; 83690; 84100; 84484; 85025; 85610; 85730; 86850; 86900; 86901; 90935; 93005; 96374; 96375; 99285

== ENCOUNTER 2018-07-01 18:47 | Emergency (ER) | payer MEDICARE, BC ==
--- NOTE | 2018-07-01 19:13 | ED ---
Abdominal Pain HPI - General Chief Complaint: Abdominal Pain Stated Complaint: abdominal pain; fatigue; chronic cough Time Seen by Provider: 07/01/18 18:55 Source: patient Mode of arrival: ambulatory Limitations: no limitations - History of Present Illness Initial Comments: 58-year-old male patient with past medical history significant for age of fibrillation, coronary artery disease, heart failure, renal failure with dialysis, hypertension, pneumonia, and SVT presents to the emergency department today for evaluation of upper abdominal pain. Patient states his been having this pain for the last 3 weeks. Patient states he's been having very minimal bowel movements. States last time he was admitted he was diagnosed with ileus and is concerned this may be back. Patient states that he has had decreased appetite and intermittent nausea and vomiting. Denies any chest pain or shortness of breath. Denies any diarrhea. States he does pass gas. Denies any hematochezia or melena. Denies any fevers or chills with this. Patient denies any recent rash, back pain, numbness, tingling, dizziness, weakness, headache, visual changes, or any other complaints. - Related Data Home Medications Medication Instructions Recorded Confirmed Folic Acid 1 mg PO DAILY 03/11/16 07/01/18 Amiodarone [Cordarone] 200 mg PO QAM 08/08/16 07/01/18 Lisinopril 10 mg PO BID 09/14/16 07/01/18 Carvedilol [Coreg] 3.125 mg PO BID 06/27/17 07/01/18 Aspirin 81 mg PO DAILY 07/23/17 07/01/18 Isosorbide Dinitrate 20 mg PO TID 07/23/17 07/01/18 Warfarin [Coumadin] 5 mg PO HS 07/23/17 07/01/18 Cinacalcet HCl [Sensipar] 90 mg PO DAILY 07/01/18 07/01/18 Ibuprofen [Advil] 400 mg PO Q6HR PRN 07/01/18 07/01/18 diphenhydrAMINE [Benadryl] 25 mg PO HS PRN 07/01/18 07/01/18 hydrALAZINE HCL 25 mg PO TID 07/01/18 07/01/18 Previous Rx's Medication Instructions Recorded Docusate [Colace] 100 mg PO DAILY #15 capsule 01/29/19 Allergies Allergy/AdvReac Type Severity Reaction Status Date / Time No Known Allergies Allergy Verified 07/01/18 19:56 Review of Systems ROS Statement: Those systems with pertinent positive or pertinent negative responses have been documented in the HPI. ROS Other: All systems not noted in ROS Statement are negative. Past Medical History Past Medical History: Atrial Fibrillation, Coronary Artery Disease (CAD), Heart Failure, Dialysis, Hyperlipidemia, Hypertension, Myocardial Infarction ([place]), Pneumonia, Renal Disease, Supraventricular Tachycardia (SVT) Additional Past Medical History / Comment(s): Pt recently admitted to [facility] on with atypical chest pain, elevated D Dimer. Other hx: CKD with hemodialysis on //Sat, afib with ablation, cardiomyopathy, nonsustained VTach , gout in multiple joints, diverticulosis, benign polyps, pneumonia with sepsis. Last Myocardial Infarction Date:: 2014 History of Any Multi-Drug Resistant Organisms: None Reported Past Surgical History: Cardiac Ablation, Heart Catheterization, Heart Catheterization With Stent, Orthopedic Surgery Additional Past Surgical History / Comment(s): Cardioversion, L arm dialysis shunt, 1993 kidney transplant, L hand finger fracure with surgery, colonoscopies with bening polypectomies. Past Anesthesia/Blood Transfusion Reactions: No Reported Reaction Additional Past Anesthesia/Blood Transfusion Reaction / Comment(s): Pt has received blood in past without reaction. Date of Last Stent Placement:: 06/2014 Past Psychological History: Anxiety Smoking Status: Former smoker Past Alcohol Use History: None Reported Past Drug Use History: Marijuana - Past Family History Father Family Medical History: Unable to Obtain Additional Family Medical History / Comment(s): WAS RAISED BY STEP DAD. Mother Family Medical History: Congestive Heart Failure (CHF), Diabetes Mellitus, Renal Disease Additional Family Medical History / Comment(s): Mother at the age of 61 yrs. General Exam Limitations: no limitations General appearance: alert, in no apparent distress, other (Physical well- developed, well-nourished adult male patient in no acute distress. Vital signs upon presentation are temperature 97.8F, pulse 90, respirations 18, blood pressure 165/111, pulse ox 98% on room air.) Eye exam: Present: normal appearance, PERRL, EOMI. Absent: scleral icterus, conjunctival injection, periorbital swelling ENT exam: Present: normal exam, normal oropharynx, mucous membranes moist Respiratory exam: Present: normal lung sounds bilaterally. Absent: respiratory distress, wheezes, rales, rhonchi, stridor Cardiovascular Exam: Present: regular rate, normal rhythm, normal heart sounds. Absent: systolic murmur, diastolic murmur, rubs, gallop, clicks GI/Abdominal exam: Present: soft, tenderness (Left lower quadrant tenderness), normal bowel sounds. Absent: distended, guarding, rebound, rigid Neurological exam: Present: alert, oriented X3, CN II-XII intact Psychiatric exam: Present: normal affect, normal mood Skin exam: Present: warm, dry, intact, normal color. Absent: rash Course Vital Signs 07/01/18 07/01/18 07/01/18 18:50 19:33 21:16 Temperature 97.8 F 97.9 F Pulse Rate 90 81 77 Respiratory 18 15 15 Rate Blood Pressure 165/111 148/101 155/99 O2 Sat by Pulse 98 98 96 Oximetry 07/01/18 22:25 Temperature 98.4 F Pulse Rate 72 Respiratory 18 Rate Blood Pressure 155/99 O2 Sat by Pulse 96 Oximetry Medical Decision Making - Medical Decision Making 58 yearold male patient with multiple medical problems presents to the emergency department today for evaluation of upper abdominal pain constipation. Physical examination did reveal some midepigastric and right upper quadrant tenderness. Patient states his been having this pain for the last 3 weeks. Patient is able to tolerate oral intake however does become nauseous on occasion. Labs reviewed and did reveal hemoglobin of 10.5, BUN 33, creatinine 8.00 which is chronic for him, he does receive dialysis. X-ray of the abdomen did show a distended loop of small bowel consistent with focal ileus. Patient has had this finding in the past. He was seen and evaluated here and admitted to the hospital in May for similar type symptoms. He did have a negative gallbladder workup at that time. At this time it is felt patient is safe for discharge home. We did discuss the importance of increasing mobility, following clear liquid diet, and using stool softener. Patient will be given follow-up information for gastroenterology. He is instructed to follow-up with his primary care physician for recheck in 1-2 days. Return parameters were discussed in detail. He verbalizes understanding and agrees with this plan. - Lab Data Result diagrams: 07/01/18 19:18 07/01/18 19:18 Lab Results 07/01/18 07/01/18 Range/Units 19:18 19:18 WBC 6.3 (3.8-10.6) k/uL RBC 3.46 L (4.30-5.90) m/uL Hgb 10.5 L D (13.0-17.5) gm/dL Hct 33.6 L (39.0-53.0) % MCV 97.0 D (80.0-100.0) fL MCH 30.4 (25.0-35.0) pg MCHC 31.3 (31.0-37.0) g/dL RDW 18.4 H (11.5-15.5) % Plt Count 194 (150-450) k/uL Neutrophils % 73 % Lymphocytes % 18 % Monocytes % 4 % Eosinophils % 2 % Basophils % 0 % Neutrophils # 4.6 (1.3-7.7) k/uL Lymphocytes # 1.2 (1.0-4.8) k/uL Monocytes # 0.3 (0-1.0) k/uL Eosinophils # 0.1 (0-0.7) k/uL Basophils # 0.0 (0-0.2) k/uL Hypochromasia Moderate Anisocytosis Slight Macrocytosis Slight Sodium 142 (137-145) mmol/L Potassium 3.6 (3.5-5.1) mmol/L Chloride 97 L (98-107) mmol/L Carbon Dioxide 29 (22-30) mmol/L Anion Gap 16 mmol/L BUN 33 H (9-20) mg/dL Creatinine 8.00 H* (0.66-1.25) mg/dL Est GFR (CKD-EPI)AfAm 8 (>60 ml/min/1.73 sqM) Est GFR (CKD-EPI)NonAf 7 (>60 ml/min/1.73 sqM) Glucose 99 (74-99) mg/dL Calcium 9.8 (8.4-10.2) mg/dL Total Bilirubin 1.1 (0.2-1.3) mg/dL AST 21 (17-59) U/L ALT 25 (21-72) U/L Alkaline Phosphatase 146 H (38-126) U/L Total Protein 7.8 (6.3-8.2) g/dL Albumin 4.1 (3.5-5.0) g/dL Amylase 62 (30-110) U/L Lipase 82 (23-300) U/L - Radiology Data Radiology results: report reviewed, image reviewed 2 views of the abdomen are obtained. Report was reviewed in its entirety. Impression by Dr. Garrett shows single loop is slightly distended small bowel left midabdomen could be localized mild ileus is no free air. Improved compared to old exam. Disposition Clinical Impression: Ileus, Abdominal pain Disposition: HOME SELF-CARE Condition: Good Instructions (If sedation given, give patient instructions): Clear Liquid Diet (ED), Abdominal Pain (ED), Ileus (ED) Additional Instructions: Follow clear liquid diet. Take stool softener. Follow up with the GI Specialist for further evaluation and management of your ileus. Return to the emergency department for any new, worsening, or concerning symptoms. Prescriptions: Docusate [Colace] 100 mg PO DAILY #15 capsule Is patient prescribed a controlled substance at d/c from ED?: No Referrals: Marcos Molina MD [Primary Care Provider] - 1-2 days Bret Neves MD [STAFF PHYSICIAN] - 1-2 days Time of Disposition: 21:45
[2018-07-01 19:41] LABS: Anisocytosis Slight; Basophils % (A) 0 %; Eosinophils # (A) 0.1 k/uL (0-0.7); Eosinophils % (A) 2 %; HCT 33.6 % (39.0-53.0); Hypochromasia Moderate; Lymphocytes # (A) 1.2 k/uL (1.0-4.8); Lymphocytes % (A) 18 %; MCH 30.4 pg (25.0-35.0); MCHC 31.3 g/dL (31.0-37.0); Macrocytosis Slight; Monocytes # (A) 0.3 k/uL (0-1.0); Monocytes % (A) 4 %; Neutrophils # (A) 4.6 k/uL (1.3-7.7); Neutrophils % (A) 73 %; Platelet Count 194 k/uL (150-450); RBC 3.46 m/uL (4.30-5.90); RDW 18.4 % (11.5-15.5); WBC 6.3 k/uL (3.8-10.6)
[2018-07-01 19:52] LABS: Albumin 4.1 g/dL (3.5-5.0); Calcium 9.8 mg/dL (8.4-10.2); HGB 10.5 gm/dL (13.0-17.5); Potassium 3.6 mmol/L (3.5-5.1); Total Bilirubin 1.1 mg/dL (0.2-1.3); Total Protein 7.8 g/dL (6.3-8.2)
[2018-07-01] MEDS ORDERED: ONDANSETRON 4 MG/2 ML VIAL IVP STA (19:57)
[2018-07-01] MEDS ORDERED: MORPHINE SULFATE 4 MG/ML SYRINGE IVP STA (20:04)
--- NOTE | 2018-07-01 20:59 | XR ---
EXAMINATION TYPE: XR KUB DATE OF EXAM: 07/01/2018 COMPARISON: 04/18/2016 HISTORY: Abdominal pain TECHNIQUE: 2 views upright FINDINGS: There is no sign of pneumoperitoneum. Bowel gas pattern is fairly normal. There is a disten ded gas-filled loop of small bowel in the mid abdomen on the left side. The lung bases are clear. Hea rt appears enlarged. There is curvilinear 1.5 cm calcification over the right midabdomen that is stab le renal calcification.. IMPRESSION: Single loop of slightly distended small bowel in the left mid abdomen could be localized mild ileus that is no free air. improved compared to old exam.
[2018-07-01 21:19] VITALS: BP 155/99
[2018-07-01 22:26] VITALS: PULSE 72; RESP 18; TEMP 98.4
== END 2018-07-01 22:27 | disposition home or self-care (01) ==
LOC: EC 18:47
DX: K56.7 Ileus, unspecified (principal); I48.91 Unspecified atrial fibrillation; I25.10 Atherosclerotic heart disease of native coronary artery without angina pectoris; I13.0 Hypertensive heart and chronic kidney disease with heart failure and stage 1 through stage 4 chronic kidney disease, or unspecified chronic kidney disease; N18.6 End stage renal disease; I50.9 Heart failure, unspecified; I25.2 Old myocardial infarction; Z79.01 Long term (current) use of anticoagulants; Z79.02 Long term (current) use of antithrombotics/antiplatelets; Z79.82 Long term (current) use of aspirin; Z79.899 Other long term (current) drug therapy; Z87.891 Personal history of nicotine dependence; Z95.5 Presence of coronary angioplasty implant and graft; Z99.2 Dependence on renal dialysis; Z94.0 Kidney transplant status
CPT/HCPCS: 36415; 80053; 82150; 83690; 85025; 74018; 99284; 96374; J2270

== ENCOUNTER 2019-04-12 10:47 | Emergency (ER) | payer MEDICARE, BC ==
[2019-04-12 10:54] VITALS: RESP 18
[2019-04-12] MEDS ORDERED: SODIUM CHLORIDE 0.9% 500 ML 500 ML IV STA (11:18)
[2019-04-12] MEDS ORDERED: MORPHINE SULFATE 4 MG/ML SYRINGE IVP STA (11:22)
--- NOTE | 2019-04-12 11:34 | ED ---
Abdominal Pain HPI - General Chief Complaint: Abdominal Pain Stated Complaint: Stomach pain/sob Time Seen by Provider: 04/12/19 10:56 Source: patient Mode of arrival: wheelchair Limitations: no limitations - History of Present Illness Initial Comments: Patient is a 59-year-old male with significant past medical history including A. fib, heart disease, heart failure, renal failure currently on dialysis, hypertension, presenting to the emergency Department with complaints of lower abdominal pain that has been increasing for the last 1-2 weeks. Patient states he is also complaining of intermittent shortness of breath and having trouble sleeping. Admits to intermittent constipation issues. Last bowel movement was yesterday but was small. Patient goes to dialysis Saturday, Saturday, and Saturday. Patient states his belly pain has been increasing over the last few weeks and describes the pain as all lower abdominal, cramping and sharp at times. Patient denies fever, chills, chest pain. Patient admits to intermittent nausea as well as one episode of vomiting 2 days ago. Patient has no other complaints at this time. Upon arrival to ER, vital signs are stable. - Related Data Home Medications Medication Instructions Recorded Confirmed Folic Acid 1 mg PO DAILY 03/11/16 07/01/18 Amiodarone [Cordarone] 200 mg PO QAM 08/08/16 07/01/18 Lisinopril 10 mg PO BID 09/14/16 07/01/18 Carvedilol [Coreg] 3.125 mg PO BID 06/27/17 07/01/18 Aspirin 81 mg PO DAILY 07/23/17 07/01/18 Isosorbide Dinitrate 20 mg PO TID 07/23/17 07/01/18 Warfarin [Coumadin] 5 mg PO HS 07/23/17 07/01/18 Cinacalcet HCl [Sensipar] 90 mg PO DAILY 07/01/18 07/01/18 Ibuprofen [Advil] 400 mg PO Q6HR PRN 07/01/18 07/01/18 hydrALAZINE HCL 25 mg PO TID 07/01/18 07/01/18 Previous Rx's Medication Instructions Recorded Docusate [Colace] 100 mg PO DAILY #15 capsule 07/01/18 Polyethylene Glycol 3350 [Miralax] 17 gm PO DAILY #527 gm 04/12/19 diphenhydrAMINE [Benadryl] 25 mg PO HS PRN #20 cap 04/12/19 Allergies Allergy/AdvReac Type Severity Reaction Status Date / Time No Known Allergies Allergy Verified 04/12/19 10:48 Review of Systems ROS Statement: Those systems with pertinent positive or pertinent negative responses have been documented in the HPI. ROS Other: All systems not noted in ROS Statement are negative. Past Medical History Past Medical History: Atrial Fibrillation, Coronary Artery Disease (CAD), Heart Failure, Dialysis, Hyperlipidemia, Hypertension, Myocardial Infarction ([place]), Pneumonia, Renal Disease, Supraventricular Tachycardia (SVT) Additional Past Medical History / Comment(s): Pt recently admitted to [facility] on 05/13/18 with atypical chest pain, elevated D Dimer. Other hx: CKD with he modialysis on //Sat, afib with ablation, cardiomyopathy, nonsustained VTach, gout in multiple joints, diverticulosis, benign polyps, pneumonia with sepsis. Last Myocardial Infarction Date:: 2014 History of Any Multi-Drug Resistant Organisms: None Reported Past Surgical History: Cardiac Ablation, Heart Catheterization, Heart Catheterization With Stent, Orthopedic Surgery Additional Past Surgical History / Comment(s): Cardioversion, L arm dialysis shunt, 1993 kidney transplant, L hand finger fracure with surgery, colonoscopies with bening polypectomies. Past Anesthesia/Blood Transfusion Reactions: No Reported Reaction Additional Past Anesthesia/Blood Transfusion Reaction / Comment(s): Pt has received blood in past without reaction. Date of Last Stent Placement:: 06/2014 Past Psychological History: Anxiety Smoking Status: Former smoker Past Alcohol Use History: None Reported Past Drug Use History: None Reported, Marijuana - Past Family History Father Family Medical History: Unable to Obtain Additional Family Medical History / Comment(s): WAS RAISED BY STEP DAD. Mother Family Medical History: Congestive Heart Failure (CHF), Diabetes Mellitus, Renal Disease Additional Family Medical History / Comment(s): Mother at the age of 61 yrs. General Exam - General Exam Comments Initial Comments: GENERAL: Well-appearing, well-nourished and in no acute distress. HEAD: Atraumatic, normocephalic. EYES: Pupils equal round and reactive to light, extraocular movements intact, sclera anicteric, conjunctiva are normal. ENT: Nares patent, oropharynx clear without exudates. Moist mucous membranes. NECK: Normal range of motion, supple without lymphadenopathy or JVD. LUNGS: Breath sounds clear to auscultation bilaterally and equal. No wheezes rales or rhonchi. HEART: Regular rate and rhythm without murmurs, rubs or gallops. ABDOMEN: Tender to palpation in the right and left lower quadrants. Mild pain with palpation of right upper quadrant. Soft, normoactive bowel sounds. No guarding, no rebound. No masses appreciated. : Deferred EXTREMITIES: Normal range of motion, no pitting or edema. No clubbing or cyanosis. Dialysis port present in left antecubital. NEUROLOGICAL: Cranial nerves II through XII grossly intact. Normal speech, normal gait. PSYCH: Normal mood, normal affect. SKIN: Warm, Dry, normal turgor, no rashes or lesions noted. Limitations: no limitations Course Vital Signs 04/12/19 10:49 Temperature 98.2 F Pulse Rate 104 H Respiratory 18 Rate Blood Pressure 144/99 O2 Sat by Pulse 100 Oximetry Medical Decision Making - Medical Decision Making Patient is a 59-year-old male presenting with lower abdominal pain that has been intermittent for 2 weeks. Patient has been having constipation. Patient also complaining of shortness of breath that has been intermittent for the past few days. Vital signs are stable. Labwork was reviewed and shows no acute abnormalities, elevation of BUN/creatinine as well as troponin are chronic in nature. Patient is on Coumadin. Chest x-ray shows mild heart failure which is chronic in nature. CT the abdomen shows no acute findings, all chronic findings. Discussed with patient that his lower abdominal discomfort is most likely related related to constipation. I recommended trial of MiraLAX. Patient will also be given a prescription for Benadryl as needed for insomnia. Dr. Molina has given patient this before. Patient is stable for discharge at this time and he is in agreement this plan of care. Return parameters were discussed with the patient he verbalizes understanding. Case discussed with Dr. Hunter who is in agreement with this plan of care. - Lab Data Result diagrams: 04/12/19 11:40 04/12/19 11:40 Lab Results 04/12/19 04/12/19 04/12/19 Range/Units 11:40 11:40 11:40 WBC 6.1 (3.8-10.6) k/uL RBC 3.27 L (4.30-5.90) m/uL Hgb 10.6 L (13.0-17.5) gm/dL Hct 33.3 L (39.0-53.0) % MCV 102.0 H (80.0-100.0) fL MCH 32.3 (25.0-35.0) pg MCHC 31.6 (31.0-37.0) g/dL RDW 19.5 H (11.5-15.5) % Plt Count 146 L (150-450) k/uL Neutrophils % 74 % Lymphocytes % 16 % Monocytes % 5 % Eosinophils % 2 % Basophils % 0 % Neutrophils # 4.5 (1.3-7.7) k/uL Lymphocytes # 1.0 (1.0-4.8) k/uL Monocytes # 0.3 (0-1.0) k/uL Eosinophils # 0.1 (0-0.7) k/uL Basophils # 0.0 (0-0.2) k/uL Hypochromasia Moderate Anisocytosis Slight Macrocytosis Moderate PT 25.4 H (9.0-12.0) sec INR 2.6 H (<1.2) APTT 35.6 H (22.0-30.0) sec Sodium 137 (137-145) mmol/L Potassium 4.3 (3.5-5.1) mmol/L Chloride 93 L (98-107) mmol/L Carbon Dioxide 24 (22-30) mmol/L Anion Gap 20 mmol/L BUN 48 H (9-20) mg/dL Creatinine 7.81 H* (0.66-1.25) mg/dL Est GFR (CKD-EPI)AfAm 8 (>60 ml/min/1.73 sqM) Est GFR (CKD-EPI)NonAf 7 (>60 ml/min/1.73 sqM) Glucose 87 (74-99) mg/dL Calcium 7.0 L (8.4-10.2) mg/dL Total Bilirubin 1.9 H (0.2-1.3) mg/dL AST 31 (17-59) U/L ALT 18 L (21-72) U/L Alkaline Phosphatase 165 H (38-126) U/L Troponin I (0.000-0.034) ng/mL Total Protein 7.8 (6.3-8.2) g/dL Albumin 4.0 (3.5-5.0) g/dL Amylase 75 (30-110) U/L Lipase 52 (23-300) U/L 04/12/19 Range/Units 11:40 WBC (3.8-10.6) k/uL RBC (4.30-5.90) m/uL Hgb (13.0-17.5) gm/dL Hct (39.0-53.0) % MCV (80.0-100.0) fL MCH (25.0-35.0) pg MCHC (31.0-37.0) g/dL RDW (11.5-15.5) % Plt Count (150-450) k/uL Neutrophils % % Lymphocytes % % Monocytes % % Eosinophils % % Basophils % % Neutrophils # (1.3-7.7) k/uL Lymphocytes # (1.0-4.8) k/uL Monocytes # (0-1.0) k/uL Eosinophils # (0-0.7) k/uL Basophils # (0-0.2) k/uL Hypochromasia Anisocytosis Macrocytosis PT (9.0-12.0) sec INR (<1.2) APTT (22.0-30.0) sec Sodium (137-145) mmol/L Potassium (3.5-5.1) mmol/L Chloride (98-107) mmol/L Carbon Dioxide (22-30) mmol/L Anion Gap mmol/L BUN (9-20) mg/dL Creatinine (0.66-1.25) mg/dL Est GFR (CKD-EPI)AfAm (>60 ml/min/1.73 sqM) Est GFR (CKD-EPI)NonAf (>60 ml/min/1.73 sqM) Glucose (74-99) mg/dL Calcium (8.4-10.2) mg/dL Total Bilirubin (0.2-1.3) mg/dL AST (17-59) U/L ALT (21-72) U/L Alkaline Phosphatase (38-126) U/L Troponin I 0.035 H* (0.000-0.034) ng/mL Total Protein (6.3-8.2) g/dL Albumin (3.5-5.0) g/dL Amylase (30-110) U/L Lipase (23-300) U/L Disposition Clinical Impression: Constipation, Abdominal pain, Chronic renal failure Disposition: HOME SELF-CARE Condition: Stable Instructions (If sedation given, give patient instructions): Abdominal Pain (ED) Additional Instructions: Please return to the Emergency Department if symptoms worsen or any other concerns. Take MiraLAX once a day for constipation and regularity. Trial of Benadryl for insomnia. Follow-up with Dr. Molina in the next 1-2 days. Prescriptions: diphenhydrAMINE [Benadryl] 25 mg PO HS PRN #20 cap PRN Reason: Insomnia Polyethylene Glycol 3350 [Miralax] 17 gm PO DAILY #527 gm Is patient prescribed a controlled substance at d/c from ED?: No Referrals: Marcos Molina MD [Primary Care Provider] - 1-2 days
--- NOTE | 2019-04-12 12:10 | XR ---
EXAMINATION TYPE: XR chest 2V DATE OF EXAM: 04/12/2019 HISTORY: SOB. REFERENCE: Previous study dated 05/20/2018. FINDINGS: The heart is enlarged. There is vascular congestion and mild edema. Pleural spaces are kathie r. IMPRESSION: MILD FINDINGS OF HEART FAILURE.
[2019-04-12 12:15] LABS: Total Bilirubin 1.9 mg/dL (0.2-1.3); Total Protein 7.8 g/dL (6.3-8.2)
[2019-04-12 12:16] LABS: INR 2.6 (<1.2); Partial Thromboplastin Time 35.6 sec (22.0-30.0); Prothrombin Time 25.4 sec (9.0-12.0)
[2019-04-12 12:19] LABS: Potassium 4.3 mmol/L (3.5-5.1)
--- NOTE | 2019-04-12 12:28 | CT ---
EXAMINATION TYPE: CT abdomen pelvis wo con DATE OF EXAM: 04/12/2019 COMPARISON: Previous study dated 03/14/2016. HISTORY: Stomach pain/SOB CT DLP: 599.3 mGycm Automated exposure control for dose reduction was used. FINDINGS: There is mild dependent atelectasis at the lung bases. There is no pleural or pericardial f luid. The heart is enlarged. Within the abdomen, the liver is enlarged measuring 20 cm. The gallbladder is unremarkable. There is evidence of old granulomatous disease in the spleen. Both adrenal glands are normal. There is a transplant kidney in the right lower quadrant. There are multiple lesions seen arising fro m the lummi right kidney including a ring calcified lesion in the lower pole, unchanged from previou s as well as a simple appearing 6 cm cyst arising from the upper pole. There is lesions arising from the left kidney which appears atrophied. Very Limited views of the pancreas are unremarkable. There is extensive atheromatous calcification of the visualized arterial tree. There is no significan t retroperitoneal, iliac or inguinal adenopathy. The bladder wall appears slightly thickened. This may be due to bladder outlet obstruction. There are scattered diverticula in the sigmoid region. I do not see convincing evidence of diverticul itis. There is a small amount of ascites. There is mild, generalized anasarca of the abdominal pelvic garrett. There is erosion of the inferior aspect of the sacroiliac joints bilaterally. IMPRESSION: 1. TRANSPLANT KIDNEY IN PLACE IN THE RIGHT LOWER QUADRANT. 2. MULTIPLE MASSES SEEN ARISING FROM THE [place] KIDNEYS. ULTRASOUND OF THE KIDNEYS WOULD BE SUGGESTED . 3. CARDIOMEGALY. 4. HEPATOMEGALY. 5. THICKENING OF THE BLADDER WALL WHICH MAY BE DUE TO BLADDER OUTLET OBSTRUCTION. 6. UNCOMPLICATED DIVERTICULOSIS OF THE SIGMOID COLON. 7. GENERALIZED ANASARCA. 8. SMALL AMOUNT OF ASCITES.
[2019-04-12 12:30] LABS: Anisocytosis Slight; Basophils % (A) 0 %; Eosinophils # (A) 0.1 k/uL (0-0.7); Eosinophils % (A) 2 %; HCT 33.3 % (39.0-53.0); HGB 10.6 gm/dL (13.0-17.5); Hypochromasia Moderate; Lymphocytes % (A) 16 %; MCH 32.3 pg (25.0-35.0); MCHC 31.6 g/dL (31.0-37.0); Macrocytosis Moderate; Mean Platelet Volume 6.8; Monocytes # (A) 0.3 k/uL (0-1.0); Monocytes % (A) 5 %; Neutrophils # (A) 4.5 k/uL (1.3-7.7); Neutrophils % (A) 74 %; Platelet Count 146 k/uL (150-450); RBC 3.27 m/uL (4.30-5.90); RDW 19.5 % (11.5-15.5); WBC 6.1 k/uL (3.8-10.6)
[2019-04-12 13:28] VITALS: BP 139/100; PULSE 100; TEMP 97.6
== END 2019-04-12 13:26 | disposition home or self-care (01) ==
LOC: EC 10:47
DX: K59.00 Constipation, unspecified (principal); I13.0 Hypertensive heart and chronic kidney disease with heart failure and stage 1 through stage 4 chronic kidney disease, or unspecified chronic kidney disease; N18.9 Chronic kidney disease, unspecified; I50.9 Heart failure, unspecified; I48.91 Unspecified atrial fibrillation; I25.10 Atherosclerotic heart disease of native coronary artery without angina pectoris; E78.5 Hyperlipidemia, unspecified; I25.2 Old myocardial infarction; F41.9 Anxiety disorder, unspecified; Z79.01 Long term (current) use of anticoagulants; Z79.82 Long term (current) use of aspirin; Z79.899 Other long term (current) drug therapy; Z87.891 Personal history of nicotine dependence; Z99.2 Dependence on renal dialysis; Z94.0 Kidney transplant status
CPT/HCPCS: 36415; 80053; 82150; 83690; 84484; 85025; 85610; 85730; 71046; 74176; 99284; 96374; 96361; J2270

== ENCOUNTER 2019-06-26 18:53 | Inpatient (IN) | payer MEDICARE, BC ==
--- NOTE | 2019-06-26 19:22 | ED ---
Recheck HPI - General Chief Complaint: Recheck/Abnormal Lab/Rx Stated Complaint: Fistula bleeding Time Seen by Provider: 06/26/19 18:58 Source: patient Mode of arrival: ambulatory Limitations: no limitations - History of Present Illness Initial Comments: Patient is a 59-year-old male, with multiple comorbidities including heart disease on Coumadin, CKD on dialysis, presenting to the emergency Department with complaints of bleeding coming from near his fistula in his left arm. Patient states his been bleeding for 2 days now. He denies any injuries to the area. He did have his dialysis this morning and they recommended that if it continues to bleed he needs to go to the ER. Patient states he also noticed some bruising along the inside part of his left arm as well. His fistula has been in place for about 5 years now and he's never had any difficulties with it. His dialysis center told him he should stop his Coumadin for the weekend second [place] to the bleeding. He denies any fever, chest pain, shortness of breath, abdominal pain. He has no other complaints at this time. Upon arrival to ER, his vital signs are stable. - Related Data Home Medications Medication Instructions Recorded Confirmed Folic Acid 1 mg PO DAILY 03/11/16 06/26/19 Amiodarone [Cordarone] 200 mg PO QAM 08/08/16 06/26/19 Carvedilol [Coreg] 3.125 mg PO BID 06/27/17 06/26/19 Isosorbide Dinitrate 20 mg PO TID 07/23/17 06/26/19 Warfarin [Coumadin] 5 mg PO HS 07/23/17 06/26/19 Ibuprofen [Advil] 400 mg PO Q6HR PRN 07/01/18 06/26/19 hydrALAZINE HCL 75 mg PO BID 07/01/18 06/26/19 Calcium Carb-Mag Carb-Folic 4 tab PO BID 06/26/19 06/26/19 [Magnebind 400 Rx] Sulfamethoxazole/Trimethoprim 1 tab PO BID 06/26/19 06/26/19 [Sulfamethoxazole-Tmp Ds Tablet] Allergies Allergy/AdvReac Type Severity Reaction Status Date / Time No Known Allergies Allergy Verified 06/26/19 22:14 Review of Systems ROS Statement: Those systems with pertinent positive or pertinent negative responses have been documented in the HPI. ROS Other: All systems not noted in ROS Statement are negative. Past Medical History Past Medical History: Atrial Fibrillation, Coronary Artery Disease (CAD), Heart Failure, Dialysis, Hyperlipidemia, Hypertension, Myocardial Infarction ([place]), Pneumonia, Renal Disease, Supraventricular Tachycardia (SVT) Additional Past Medical History / Comment(s): Pt recently admitted to [facility] on 05/13/18 with atypical chest pain, elevated D Dimer. Other hx: CKD with hemodialysis on //Sat, afib with ablation, cardiomyopathy, nonsustained VTach, gout in multiple joints, diverticulosis, benign polyps, pneumonia with sepsis. Last Myocardial Infarction Date:: 2014 History of Any Multi-Drug Resistant Organisms: MRSA Date of last positivie culture/infection: 2018 Past Surgical History: Cardiac Ablation, Heart Catheterization, Heart Minnie terization With Stent, Orthopedic Surgery Additional Past Surgical History / Comment(s): Cardioversion, L arm dialysis shunt, 1993 kidney transplant, L hand finger fracure with surgery, colonoscopies with bening polypectomies. Past Anesthesia/Blood Transfusion Reactions: No Reported Reaction Additional Past Anesthesia/Blood Transfusion Reaction / Comment(s): Pt has received blood in past without reaction. Date of Last Stent Placement:: 06/2014 Past Psychological History: Anxiety Smoking Status: Former smoker Past Alcohol Use History: None Reported Past Drug Use History: None Reported, Marijuana - Past Family History Father Family Medical History: Unable to Obtain Additional Family Medical History / Comment(s): WAS RAISED BY STEP DAD. Mother Family Medical History: Congestive Heart Failure (CHF), Diabetes Mellitus, Renal Disease Additional Family Medical History / Comment(s): Mother at the age of 61 yrs. General Exam - General Exam Comments Initial Comments: GENERAL: Well-appearing, well-nourished and in no acute distress. HEAD: Atraumatic, normocephalic. EYES: Pupils equal round and reactive to light, extraocular movements intact, sclera anicteric, conjunctiva are normal. ENT: TMs normal, nares patent, oropharynx clear without exudates. Moist mucous membranes. NECK: Normal range of motion, supple without lymphadenopathy or JVD. LUNGS: Breath sounds clear to auscultation bilaterally and equal. No wheezes rales or rhonchi. HEART: Regular rate and rhythm without murmurs, rubs or gallops. ABDOMEN: Soft, nontender, normoactive bowel sounds. No guarding, no rebound. No masses appreciated. EXTREMITIES: Fistula present in left proximal antecubital region, significant bruising noted on the medial aspect of the left upper arm. He has normal range of motion, minimal pain with palpation around the fistula. There is a very small pinhole size area of continuous mild bleeding. No pitting or edema. No clubbing or cyanosis. NEUROLOGICAL: Normal speech, normal gait. PSYCH: Normal mood, normal affect. SKIN: Warm, Dry, normal turgor, no rashes. Limitations: no limitations Course Vital Signs 06/26/19 06/26/19 06/26/19 18:55 22:37 22:38 Temperature 97.9 F 98.2 F Pulse Rate 68 70 Respiratory 18 18 19 Rate Blood Pressure 135/85 132/80 O2 Sat by Pulse 98 96 Oximetry Medical Decision Making - Medical Decision Making Patient is a 59-year-old male presenting from mild bleeding from his fistula site. He is on Coumadin secondary to A. fib. Vital signs stable. INR returned at 6.5. Patient will be admitted to observation. We will hold Coumadin. Spoke with BRAD Acosta who accepts patient for Dr. Gambino. Wound was cleaned and b andaged. And all bleeding at this time. Case discussed with Dr. Schaffer. - Lab Data Result diagrams: 06/26/19 19:55 06/26/19 19:55 Lab Results 06/26/19 06/26/19 06/26/19 Range/Units 19:55 19:55 19:55 WBC 4.0 (3.8-10.6) k/uL RBC 3.80 L (4.30-5.90) m/uL Hgb 11.5 L (13.0-17.5) gm/dL Hct 36.6 L (39.0-53.0) % MCV 96.1 (80.0-100.0) fL MCH 30.2 (25.0-35.0) pg MCHC 31.4 (31.0-37.0) g/dL RDW 16.3 H (11.5-15.5) % Plt Count 102 L (150-450) k/uL Neutrophils % 71 % Lymphocytes % 15 % Monocytes % 7 % Eosinophils % 4 % Basophils % 1 % Neutrophils # 2.8 (1.3-7.7) k/uL Lymphocytes # 0.6 L (1.0-4.8) k/uL Monocytes # 0.3 (0-1.0) k/uL Eosinophils # 0.2 (0-0.7) k/uL Basophils # 0.1 (0-0.2) k/uL Hypochromasia Slight Anisocytosis Slight PT 66.6 H (9.0-12.0) sec INR 6.5 H* (<1.2) APTT 64.7 H (22.0-30.0) sec Sodium 137 (137-145) mmol/L Potassium 4.9 (3.5-5.1) mmol/L Chloride 97 L (98-107) mmol/L Carbon Dioxide 31 H (22-30) mmol/L Anion Gap 9 mmol/L BUN 22 H (9-20) mg/dL Creatinine 3.66 H (0.66-1.25) mg/dL Est GFR (CKD-EPI)AfAm 20 (>60 ml/min/1.73 sqM) Est GFR (CKD-EPI)NonAf 17 (>60 ml/min/1.73 sqM) Glucose 82 (74-99) mg/dL Calcium 10.6 H (8.4-10.2) mg/dL Total Bilirubin 1.6 H (0.2-1.3) mg/dL AST 53 (17-59) U/L ALT 15 (4-49) U/L Alkaline Phosphatase 296 H (38-126) U/L Total Protein 8.2 (6.3-8.2) g/dL Albumin 3.9 (3.5-5.0) g/dL Disposition Clinical Impression: Warfarin-induced coagulopathy Disposition: ADMITTED IP TO THIS [facility] Condition: Good Is patient prescribed a controlled substance at d/c from ED?: No Decision Date: 06/26/19 Decision Time: 21:28
[2019-06-26] MEDS ORDERED: GELATIN SPONGE,ABSORB (LARGE) 1 EACH SPONGE TOPICAL STA (19:44)
[2019-06-26 20:43] LABS: Prothrombin Time 66.6 sec (9.0-12.0)
[2019-06-26 20:44] LABS: INR 6.5 (<1.2); Partial Thromboplastin Time 64.7 sec (22.0-30.0)
[2019-06-26] MEDS ORDERED: NALOXONE 0.4 MG/ML 1 ML VIAL IV PRN (21:23)
[2019-06-26] MEDS ORDERED: ACETAMINOPHEN TAB 325 MG TAB PO PRN (21:23)
[2019-06-26 21:41] LABS: Anisocytosis Slight; Basophils # (A) 0.1 k/uL (0-0.2); Basophils % (A) 1 %; Eosinophils # (A) 0.2 k/uL (0-0.7); Eosinophils % (A) 4 %; HCT 36.6 % (39.0-53.0); HGB 11.5 gm/dL (13.0-17.5); Hypochromasia Slight; Lymphocytes # (A) 0.6 k/uL (1.0-4.8); Lymphocytes % (A) 15 %; MCH 30.2 pg (25.0-35.0); MCHC 31.4 g/dL (31.0-37.0); MCV 96.1 fL (80.0-100.0); Mean Platelet Volume 9.2; Monocytes # (A) 0.3 k/uL (0-1.0); Monocytes % (A) 7 %; Neutrophils # (A) 2.8 k/uL (1.3-7.7); Neutrophils % (A) 71 %; Platelet Count 102 k/uL (150-450); RDW 16.3 % (11.5-15.5)
[2019-06-26 22:10] LABS: Calcium 10.6 mg/dL (8.4-10.2); Total Bilirubin 1.6 mg/dL (0.2-1.3)
[2019-06-26 22:11] LABS: Albumin 3.9 g/dL (3.5-5.0); Potassium 4.9 mmol/L (3.5-5.1); Total Protein 8.2 g/dL (6.3-8.2)
[2019-06-27] MEDS: hydrALAZINE HCL 25 MG TAB PO SCH ×3 (00:37→20:38)
[2019-06-27] MEDS: ISOSORBIDE DINITRATE 20 MG TAB PO SCH ×4 (00:37→20:38)
[2019-06-27] MEDS: AMIODARONE 200 MG TAB PO SCH (07:40)
[2019-06-27] MEDS: CARVEDILOL 3.125 MG TAB PO SCH ×2 (07:40→17:03)
[2019-06-27 11:35] LABS: Anisocytosis Slight; Basophils % (A) 1 %; Eosinophils # (A) 0.1 k/uL (0-0.7); Eosinophils % (A) 3 %; HCT 36.1 % (39.0-53.0); HGB 11.2 gm/dL (13.0-17.5); Hypochromasia Slight; Lymphocytes # (A) 0.7 k/uL (1.0-4.8); Lymphocytes % (A) 16 %; MCH 30.1 pg (25.0-35.0); MCHC 31.1 g/dL (31.0-37.0); MCV 96.8 fL (80.0-100.0); Mean Platelet Volume 8.7; Monocytes # (A) 0.2 k/uL (0-1.0); Monocytes % (A) 6 %; Neutrophils # (A) 3.1 k/uL (1.3-7.7); Neutrophils % (A) 72 %; Platelet Count 104 k/uL (150-450); RBC 3.73 m/uL (4.30-5.90); RDW 16.1 % (11.5-15.5); WBC 4.4 k/uL (3.8-10.6)
[2019-06-27 11:47] LABS: INR 4.7 (<1.2)
[2019-06-27 11:50] LABS: Calcium 10.1 mg/dL (8.4-10.2); Potassium 4.4 mmol/L (3.5-5.1)
--- NOTE | 2019-06-27 13:32 | P.NPCON ---
History of Present Illness - Reason for Consult Consult date: 06/27/19 end stage renal disease - Chief Complaint Prolonged bleeding postdialysis - History of Present Illness ESRD [place] [facility] [place] on hemodialysis for the last 6 years via left upper arm AV fistula, had dialysis Saturday since then having prolonged bleeding. He went to dialysis on Saturday different site was used and those sites closest off but it this was still oozing. He came to the hospital for evaluation. Home medications include warfarin and his INR was 6.5 yesterday and reports 4.7 today. Review of Systems Constitutional: Reports as per HPI Past Medical History Past Medical History: Atrial Fibrillation, Coronary Artery Disease (CAD), Heart Failure, Dialysis, Hyperlipidemia, Hypertension, Myocardial Infarction ([place]), Pneumonia, Renal Disease, Supraventricular Tachycardia (SVT) Additional Past Medical History / Comment(s): Pt recently admitted to [facility] on 05/13/18 with atypical chest pain, elevated D Dimer. Other hx: CKD with hemodialysis on //Sat, afib with ablation, cardiomyopathy, nonsustained VTach, gout in multiple joints, diverticulosis, benign polyps, pneumonia with sepsis. Last Myocardial Infarction Date:: 2014 History of Any Multi-Drug Resistant Organisms: MRSA Date of last positivie culture/infection: 2018 MDRO Source:: abcess in groin region Past Surgical History: Cardiac Ablation, Heart Catheterization, Heart Catheterization With Stent, Orthopedic Surgery Additional Past Surgical History / Comment(s): Cardioversion, L arm dialysis shunt, 1993 kidney transplant, L hand finger fracure with surgery, colonoscopies with bening polypectomies. Past Anesthesia/Blood Transfusion Reactions: No Reported Reaction Additional Past Anesthesia/Blood Transfusion Reaction / Comment(s): Pt has received blood in past without reaction. Date of Last Stent Placement:: 06/2014 Past Psychological History: Anxiety Smoking Status: Former smoker Past Alcohol Use History: None Reported Past Drug Use History: None Reported, Marijuana - Past Family History Father Family Medical History: Unable to Obtain Additional Family Medical History / Comment(s): WAS RAISED BY STEP DAD. Mother Family Medical History: Congestive Heart Failure (CHF), Diabetes Mellitus, Renal Disease Additional Family Medical History / Comment(s): Mother at the age of 61 yrs. Medications and Allergies Home Medications Medication Instructions Recorded Confirmed Type Folic Acid 1 mg PO DAILY 03/11/16 06/26/19 History Amiodarone [Cordarone] 200 mg PO QAM 08/08/16 06/26/19 History Carvedilol [Coreg] 3.125 mg PO BID 06/27/17 06/26/19 History Isosorbide Dinitrate 20 mg PO TID 07/23/17 06/26/19 History Warfarin [Coumadin] 5 mg PO HS 07/23/17 06/26/19 History Ibuprofen [Advil] 400 mg PO Q6HR PRN 07/01/18 06/26/19 History hydrALAZINE HCL 75 mg PO BID 07/01/18 06/26/19 History Calcium Carb-Mag Carb-Folic 4 tab PO BID 06/26/19 06/26/19 History [Magnebind 400 Rx] Sulfamethoxazole/Trimethoprim 1 tab PO BID 06/26/19 06/26/19 History [Sulfamethoxazole-Tmp Ds Tablet] Allergies Allergy/AdvReac Type Severity Reaction Status Date / Time No Known Allergies Allergy Verified 06/26/19 22:14 Physical Exam Vitals: Vital Signs Temp Pulse Pulse Resp BP BP Pulse Ox 06/27/19 07:40 98.4 F 106 H 18 135/85 98 06/27/19 03:37 19 06/27/19 01:15 98.1 F 70 129/79 98 06/26/19 23:28 98.0 F 82 16 151/92 97 06/26/19 22:38 98.2 F 70 19 132/80 96 06/26/19 22:37 18 06/26/19 18:55 97.9 F 68 18 135/85 98 Intake and Output 06/26/19 06/27/19 06/27/19 22:59 06:59 14:59 Intake Total 300 596 Balance 300 596 Intake: Oral 300 596 Other: Weight 81.193 kg No acute distress Lying comfortable S1-S2 heard Lungs clear Left upper arm AV fistula no bleeding Band-Aid. Results - Lab Results Most recent lab results Calcium 10.1 mg/dL (8.4-10.2) 06/27/19 11:04 06/27/19 11:04 06/27/19 11:04 Assessment and Plan Assessment: #1 prolonged bleeding postdialysis rule out aVF stenosis, Coumadin toxicity #2 ESRD, MWF, left upper arm aVF, [facility] #3 hypertension with ESRD #4 anemia with ESRD #5 metabolic bone disease with ESRD Plan: #1 vascular surgery evaluation, correct INR. #2 hemodialysis on Saturday.
[2019-06-27] MEDS ORDERED: PHYTONADIONE ORAL 5 MG/5 ML ORAL.SYRG PO STA (13:34)
--- NOTE | 2019-06-27 16:24 | P.HPIM ---
History of Present Illness H&P Date: 06/27/19 59-year-old male, with multiple comorbidities including heart disease on Coumadin, CKD on dialysis, presenting to the emergency Department with complaints of bleeding coming from near his fistula in his left arm. Patient states his been bleeding for 2 days now. He denies any injuries to the area. He did have his dialysis this morning and they recommended that if it continues to bleed he needs to go to the ER. Patient states he also noticed some bruising along the inside part of his left arm as well. His fistula has been in place for about 5 years now and he's never had any difficulties with it. His dialysis center told him he should stop his Coumadin for the weekend secondary to the ble eding, patient is on Coumadin secondary to atrial fibrillation. He denies any fever, chest pain, shortness of breath, abdominal pain. He has no other complaints at this time. Upon arrival to ER, his vital signs are stable. Evaluation in ED was significant for presence of AV fistula in left proximal antecubital region with significant bruising on medial aspect of left upper arm; INR was found to be 6.5; Coumadin was held and patient is admitted for further evaluation Review of Systems REVIEW OF SYSTEMS: CONSTITUTIONAL: No fever, no malaise, no fatigue. HEENT: No recent visual problems or hearing problems. Denied any sore throat. CARDIOVASCULAR: No chest pain, orthopnea, PND, no palpitations, no syncope. PULMONARY: No shortness of breath, no cough, no hemoptysis. GASTROINTESTINAL: No diarrhea, no nausea, no vomiting, no abdominal pain. NEUROLOGICAL: No headaches, no weakness, no numbness. HEMATOLOGICAL: Denies any bleeding or petechiae. GENITOURINARY: Denies any burning micturition, frequency, or urgency. MUSCULOSKELETAL/RHEUMATOLOGICAL: Denies any joint pain, swelling, or any muscle pain. ENDOCRINE: Denies any polyuria or polydipsia. The rest of the 14-point review of systems is negative. Past Medical History Past Medical History: Atrial Fibrillation, Coronary Artery Disease (CAD), Heart Failure, Dialysis, Hyperlipidemia, Hypertension, Myocardial Infarction ([place]), Pneumonia, Renal Disease, Supraventricular Tachycardia (SVT) Additional Past Medical History / Comment(s): Pt recently admitted to [facility] on 05/13/18 with atypical chest pain, elevated D Dimer. Other hx: CKD with hemodialysis on M//Sat, afib with ablation, cardiomyopathy, nonsustained VTach, gout in multiple joints, diverticulosis, benign polyps, pneumonia with sepsis. Last Myocardial Infarction Date:: 2014 History of Any Multi-Drug Resistant Organisms: MRSA Date of last positivie culture/infection: 2018 MDRO Source:: abcess in groin region Past Surgical History: Cardiac Ablation, Heart Catheterization, Heart Catheterization With Stent, Orthopedic Surgery Additional Past Surgical History / Comment(s): Cardioversion, L arm dialysis shunt, 1993 kidney transplant, L hand finger fracure with surgery, colonoscopies with bening polypectomies. Past Anesthesia/Blood Transfusion Reactions: No Reported Reaction Additional Past Anesthesia/Blood Transfusion Reaction / Comment(s): Pt has received blood in past without reaction. Date of Last Stent Placement:: 06/2014 Past Psychological History: Anxiety Smoking Status: Former smoker Past Alcohol Use History: None Reported Past Drug Use History: None Reported, Marijuana - Past Family History Father Family Medical History: Unable to Obtain Additional Family Medical History / Comment(s): WAS RAISED BY STEP DAD. Mother Family Medical History: Congestive Heart Failure (CHF), Diabetes Mellitus, Renal Disease Additional Family Medical History / Comment(s): Mother at the age of 61 yrs. Medications and Allergies Home Medications Medication Instructions Recorded Confirmed Type Folic Acid 1 mg PO DAILY 03/11/16 06/26/19 History Amiodarone [Cordarone] 200 mg PO QAM 08/08/16 06/26/19 History Carvedilol [Coreg] 3.125 mg PO BID 06/27/17 06/26/19 History Isosorbide Dinitrate 20 mg PO TID 07/23/17 06/26/19 History Warfarin [Coumadin] 5 mg PO HS 07/23/17 06/26/19 History Ibuprofen [Advil] 400 mg PO Q6HR PRN 07/01/18 06/26/19 History hydrALAZINE HCL 75 mg PO BID 07/01/18 06/26/19 History Calcium Carb-Mag Carb-Folic 4 tab PO BID 06/26/19 06/26/19 History [Magnebind 400 Rx] Sulfamethoxazole/Trimethoprim 1 tab PO BID 06/26/19 06/26/19 History [Sulfamethoxazole-Tmp Ds Tablet] Allergies Allergy/AdvReac Type Severity Reaction Status Date / Time No Known Allergies Allergy Verified 06/26/19 22:14 Physical Exam Vitals: Vital Signs Temp Pulse Pulse Resp BP BP Pulse Ox 06/27/19 07:40 98.4 F 106 H 18 135/85 98 06/27/19 03:37 19 06/27/19 01:15 98.1 F 70 129/79 98 06/26/19 23:28 98.0 F 82 16 151/92 97 06/26/19 22:38 98.2 F 70 19 132/80 96 06/26/19 22:37 18 06/26/19 18:55 97.9 F 68 18 135/85 98 Intake and Output 06/26/19 06/27/19 06/27/19 22:59 06:59 14:59 Intake Total 300 596 Balance 300 596 Intake: Oral 300 596 Other: Weight 81.193 kg - Constitutional General appearance: Present: average body habitus, cooperative, no acute distress - EENT Eyes: Present: anicteric sclerae, EOMI, PERRLA, normal appearance ENT: Present: hearing grossly normal, normal oropharynx Ears: bilateral: normal - Neck Neck: Present: normal ROM. Absent: lymphadenopathy, rigidity, thyromegaly Carotids: negative: bruit present Thyroid: bilateral: normal size, negative: enlarged, nodule - Respiratory Respiratory: bilateral: CTA, negative: rales, rhonchi, wheezing - Cardiovascular Rhythm: regular Heart sounds: normal: S1, S2 Abnormal Heart Sounds: Absent: systolic murmur, diastolic murmur - Gastrointestinal General gastrointestinal: Present: normal bowel sounds, soft. Absent: distended, organomegaly, tenderness - Genitourinary Genitourinary Comment(s): deferred - Integumentary Integumentary: Present: normal turgor. Absent: jaundiced, rash, ulcer - Neurologic Neurologic: Present: CNII-XII intact. Absent: focal deficits - Musculoskeletal Musculoskeletal: Present: gait normal, strength equal bilaterally - Psychiatric Psychiatric: Present: A&O x's 3, appropriate affect, intact judgment & insight Results CBC & Chem 7: 06/27/19 11:04 06/27/19 11:04 Labs: Abnormal Lab Results - Last 24 Hours (Table) 06/26/19 06/26/19 06/26/19 Range/Units 19:55 19:55 19:55 RBC 3.80 L (4.30-5.90) m/uL Hgb 11.5 L (13.0-17.5) gm/dL Hct 36.6 L (39.0-53.0) % RDW 16.3 H (11.5-15.5) % Plt Count 102 L (150-450) k/uL Lymphocytes # 0.6 L (1.0-4.8) k/uL PT 66.6 H (9.0-12.0) sec INR 6.5 H* (<1.2) APTT 64.7 H (22.0-30.0) sec Chloride 97 L (98-107) mmol/L Carbon Dioxide 31 H (22-30) mmol/L BUN 22 H (9-20) mg/dL Creatinine 3.66 H (0.66-1.25) mg/dL Calcium 10.6 H (8.4-10.2) mg/dL Total Bilirubin 1.6 H (0.2-1.3) mg/dL Alkaline Phosphatase 296 H (38-126) U/L Assessment and Plan Assessment: 1. Coagulopathy secondary to Coumadin; Coumadin has been put on hold from ED; stat INR is repeated and is 4.7 this morning; we will order 5 mg of oral vitamin K and monitor PT/INR closely 2. Bleeding from fistula site; reverse Coumadin and monitor CBC closely; vascular surgery is consulted for evaluation of fistula 3. End-stage renal disease/hemodialysis; patient's hemodialysis on Saturday; nephrology is on board 5. Hypertension; stable on Coreg; we will continue with parameters 6. Anemia of chronic disease; remains at baseline; we will continue to monitor CBC 8. Chronic atrial fibrillation; patient is rate controlled on amiodarone and Coreg with anticoagulation therapy with Coumadin; we will hold Coumadin DVT prophylaxis; systemic anticoagulation CODE STATUS; full code
[2019-06-27] MEDS ORDERED: guaiFENesin 600 MG TABLET.ER PO PRN (19:55)
[2019-06-28 07:27] LABS: INR 2.2 (<1.2); Prothrombin Time 21.2 sec (9.0-12.0)
[2019-06-28 07:37] LABS: Anisocytosis Slight; Basophils % (A) 1 %; Eosinophils # (A) 0.2 k/uL (0-0.7); Eosinophils % (A) 3 %; HCT 36.8 % (39.0-53.0); HGB 11.2 gm/dL (13.0-17.5); Hypochromasia Slight; Lymphocytes # (A) 0.8 k/uL (1.0-4.8); Lymphocytes % (A) 16 %; MCH 29.8 pg (25.0-35.0); MCHC 30.4 g/dL (31.0-37.0); MCV 98.1 fL (80.0-100.0); Macrocytosis Slight; Mean Platelet Volume 8.8; Monocytes # (A) 0.3 k/uL (0-1.0); Monocytes % (A) 6 %; Neutrophils # (A) 3.6 k/uL (1.3-7.7); Neutrophils % (A) 72 %; Platelet Count 108 k/uL (150-450); RBC 3.75 m/uL (4.30-5.90); RDW 16.3 % (11.5-15.5)
[2019-06-28 07:38] LABS: Calcium 9.8 mg/dL (8.4-10.2); Potassium 4.9 mmol/L (3.5-5.1)
[2019-06-28] MEDS: CARVEDILOL 3.125 MG TAB PO SCH ×2 (08:43→17:21)
[2019-06-28] MEDS: hydrALAZINE HCL 25 MG TAB PO SCH ×2 (08:43→21:10)
[2019-06-28] MEDS: AMIODARONE 200 MG TAB PO SCH (08:43)
[2019-06-28] MEDS: ISOSORBIDE DINITRATE 20 MG TAB PO SCH ×3 (08:43→21:10)
--- NOTE | 2019-06-28 12:09 | P.PN ---
Subjective Progress Note Date: 06/28/19 All of 4 ESRD. No more bleeding from the aVF. Objective - Vital Signs Vital signs: Vital Signs Temp 98.0 F 06/28/19 06:47 Pulse 67 06/28/19 06:47 Resp 14 06/28/19 06:47 BP 141/87 06/28/19 06:47 Pulse Ox 95 06/28/19 06:47 Intake & Output 06/27/19 06/28/19 06/28/19 18:59 06:59 18:59 Intake Total 1488 250 Output Total 0 Balance 1488 250 Intake: Oral 1488 250 Output: Urine 0 - Exam No acute distress S1-S2 heard Lungs clear No edema - Labs CBC & Chem 7: 06/28/19 06:28 06/28/19 06:28 Labs: Abnormal Lab Results - Last 24 Hours (Table) 06/27/19 06/28/19 06/28/19 Range/Units 11:04 06:28 06:28 RBC 3.75 L (4.30-5.90) m/uL Hgb 11.2 L (13.0-17.5) gm/dL Hct 36.8 L (39.0-53.0) % MCHC 30.4 L (31.0-37.0) g/dL RDW 16.3 H (11.5-15.5) % Plt Count 108 L (150-450) k/uL Lymphocytes # 0.8 L (1.0-4.8) k/uL PT 47.0 H 21.2 H (9.0-12.0) sec INR 4.7 H 2.2 H (<1.2) Sodium (137-145) mmol/L Chloride (98-107) mmol/L BUN (9-20) mg/dL Creatinine (0.66-1.25) mg/dL 06/28/19 Range/Units 06:28 RBC (4.30-5.90) m/uL Hgb (13.0-17.5) gm/dL Hct (39.0-53.0) % MCHC (31.0-37.0) g/dL RDW (11.5-15.5) % Plt Count (150-450) k/uL Lymphocytes # (1.0-4.8) k/uL PT (9.0-12.0) sec INR (<1.2) Sodium 135 L (137-145) mmol/L Chloride 96 L (98-107) mmol/L BUN 42 H (9-20) mg/dL Creatinine 6.10 H (0.66-1.25) mg/dL Assessment and Plan Assessment: #1 prolonged bleeding postdialysis rule out aVF stenosis, Coumadin toxicity #2 ESRD, MWF, left upper arm aVF, [facility] #3 hypertension with ESRD #4 anemia with ESRD #5 metabolic bone disease with ESRD Plan: #1 vascular surgery evaluation, correct INR. #2 hemodialysis on Saturday.
--- NOTE | 2019-06-28 15:19 | P.PN ---
Subjective Progress Note Date: 06/28/19 Principal diagnosis: Coagulopathy secondary to Coumadin Bleeding from fistula site possibly secondary to coagulopathy End-stage renal disease/HD 59-year-old male, with multiple comorbidities including heart disease on Coumadin, CKD on dialysis, presenting to the emergency Department with complaints of bleeding coming from near his fistula in his left arm. Patient states his been bleeding for 2 days now. He denies any injuries to the area. He did have his dialysis this morning and they recommended that if it continues to bleed he needs to go to the ER. Patient states he also noticed some bruising along the inside part of his left arm as well. His fistula has been in place for about 5 years now and he's never had any difficulties with it. His dialysis center told him he should stop his Coumadin for the weekend secondary to the bleeding, patient is on Coumadin secondary to atrial fibrillation. He denies any fever, chest pain, shortness of breath, abdominal pain. He has no other complaints at this time. Upon arrival to ER, his vital signs are stable. 06/28/2019 Patient is seen and evaluated in room at bedside; denies any further bleeding from fistula; patient did receive vitamin K 5 mg by mouth 1 yesterday with INR down to 2.2 this morning; nephrology is following and recommending to rule out AV fistula stenosis in setting of prolonged bleeding postdialysis; vascular surgery has been consulted for evaluation of the fistula; patient will undergo hemodialysis tomorrow continuing his regular schedule of Saturday y; patient takes Coumadin for atrial fibrillation and is not willing to be started on Coumadin therapy; we will consult cardiology for further recommendations on anticoagulation therapy in view of atrial fibrillation Objective - Vital Signs Vital signs: Vital Signs Temp 98.0 F 06/28/19 06:47 Pulse 67 06/28/19 06:47 Resp 14 06/28/19 06:47 BP 141/87 06/28/19 06:47 Pulse Ox 95 06/28/19 06:47 Intake & Output 06/27/19 06/28/19 06/28/19 18:59 06:59 18:59 Intake Total 1488 250 Output Total 0 Balance 1488 250 Intake: Oral 1488 250 Output: Urine 0 - Exam GENERAL: The patient is alert and oriented x3, not in any acute distress. Well developed, well nourished. HEENT: Pupils are round and equally reacting to light. EOMI. No scleral icterus. No conjunctival pallor. Normocephalic, atraumatic. No pharyngeal erythema. No thyromegaly. CARDIOVASCULAR: S1 and S2 present. No murmurs, rubs, or gallops. PULMONARY: Chest is clear to auscultation, no wheezing or crackles. ABDOMEN: Soft, nontender, nondistended, normoactive bowel sounds. No palpable organomegaly. MUSCULOSKELETAL: No joint swelling or deformity. EXTREMITIES: No cyanosis, clubbing, or pedal edema. NEUROLOGICAL: Gross neurological examination did not reveal any focal deficits. SKIN: No rashes. - Labs CBC & Chem 7: 06/28/19 06:28 06/28/19 06:28 Labs: Abnormal Lab Results - Last 24 Hours (Table) 06/28/19 06/28/19 06/28/19 Range/Units 06:28 06:28 06:28 RBC 3.75 L (4.30-5.90) m/uL Hgb 11.2 L (13.0-17.5) gm/dL Hct 36.8 L (39.0-53.0) % MCHC 30.4 L (31.0-37.0) g/dL RDW 16.3 H (11.5-15.5) % Plt Count 108 L (150-450) k/uL Lymphocytes # 0.8 L (1.0-4.8) k/uL PT 21.2 H (9.0-12.0) sec INR 2.2 H (<1.2) Sodium 135 L (137-145) mmol/L Chloride 96 L (98-107) mmol/L BUN 42 H (9-20) mg/dL Creatinine 6.10 H (0.66-1.25) mg/dL Assessment and Plan Assessment: 1. Coagulopathy secondary to Coumadin; Coumadin has been put on hold from ED; stat INR is repeated and is 4.7 this morning; we will order 5 mg of oral vitamin K and monitor PT/INR closely 2. Bleeding from fistula site; reverse Coumadin and monitor CBC closely; vascular surgery is consulted for evaluation of fistula 3. End-stage renal disease/hemodialysis; patient's hemodialysis on Saturday; nephrology is on board 5. Hypertension; stable on Coreg; we will continue with parameters 6. Anemia of chronic disease; remains at baseline; we will continue to monitor CBC 8. Chronic atrial fibrillation; patient is rate controlled on amiodarone and Coreg with anticoagulation therapy with Coumadin; we will hold Coumadin DVT prophylaxis; systemic anticoagulation CODE STATUS; full code Time with Patient: Greater than 30
[2019-06-28] MEDS ORDERED: ZOLPIDEM 5 MG TAB PO PRN (20:22)
--- NOTE | 2019-06-29 07:24 | P.DS ---
Providers Date of admission: 06/27/19 14:11 Attending physician: Alfred Gambino Consults: 06/27/19 10:52 Consult Physician Routine Consulting Provider: Dave Chapa Consult Reason/Comments: esrd/hd/ bleeding around fistula Do you want consulting provider notified?: Yes 06/28/19 10:59 Consult Physician Routine Consulting Provider: Kemal Rossi Consult Reason/Comments: Atrial fibrillation/ recommendations on anticoagulation Do you want consulting provider notified?: Yes Primary care physician: Marcos Molina [facility] Course: This discharge summary a 59-year-old black male with ESRD but has bleeding from fistula site. The patient's Coumadin level was titrated and he was placed on vitamin K. The patient is now stabilizing and we will discharge after dialysis later today. Patient's INR is now therapeutic with his atrial fibrillation but we need to adjust his Coumadin as an outpatient. I will start still lower dose than he was taking at home and will follow-up with him in about 3 days. Patient Condition at Discharge: Good Plan - Discharge Summary Discharge Rx Participant: No New Discharge Prescriptions: Continue Folic Acid 1 mg PO DAILY Amiodarone [Cordarone] 200 mg PO QAM Carvedilol [Coreg] 3.125 mg PO BID Isosorbide Dinitrate 20 mg PO TID hydrALAZINE HCL 75 mg PO BID Ibuprofen [Advil] 400 mg PO Q6HR PRN PRN Reason: Pain Calcium Carb-Mag Carb-Folic [Magnebind 400] 4 tab PO BID Sulfamethoxazole/Trimethoprim [Sulfamethoxazole-Tmp Ds Tablet] 1 tab PO BID Changed Warfarin [Coumadin] 2.5 mg PO HS #30 tab Discharge Medication List Folic Acid 1 mg PO DAILY 03/11/16 [History] Amiodarone [Cordarone] 200 mg PO QAM 08/08/16 [History] Carvedilol [Coreg] 3.125 mg PO BID 06/27/17 [History] Isosorbide Dinitrate 20 mg PO TID 07/23/17 [History] Ibuprofen [Advil] 400 mg PO Q6HR PRN 07/01/18 [History] hydrALAZINE HCL 75 mg PO BID 07/01/18 [History] Calcium Carb-Mag Carb-Folic [Magnebind 400] 4 tab PO BID 06/26/19 [History] Sulfamethoxazole/Trimethoprim [Sulfamethoxazole-Tmp Ds Tablet] 1 tab PO BID 06/26/19 [History] Warfarin [Coumadin] 2.5 mg PO HS #30 tab 06/29/19 [Rx] Follow up Appointment(s)/Referral(s): Marcos Molina MD [Primary Care Provider] - 1-2 days
[2019-06-29 07:29] LABS: Anisocytosis Slight; Basophils % (A) 1 %; Eosinophils # (A) 0.2 k/uL (0-0.7); Eosinophils % (A) 4 %; HCT 36.5 % (39.0-53.0); HGB 11.4 gm/dL (13.0-17.5); Hypochromasia Slight; Lymphocytes # (A) 0.8 k/uL (1.0-4.8); Lymphocytes % (A) 19 %; MCH 29.9 pg (25.0-35.0); MCHC 31.1 g/dL (31.0-37.0); Mean Platelet Volume 8.8; Monocytes # (A) 0.3 k/uL (0-1.0); Monocytes % (A) 6 %; Neutrophils # (A) 2.7 k/uL (1.3-7.7); Neutrophils % (A) 67 %; Platelet Count 104 k/uL (150-450); RDW 16.4 % (11.5-15.5)
[2019-06-29 07:40] LABS: Calcium 9.7 mg/dL (8.4-10.2)
[2019-06-29 07:43] LABS: INR 1.5 (<1.2); Prothrombin Time 15.1 sec (9.0-12.0)
[2019-06-29 07:59] VITALS: TEMP 98.1
[2019-06-29 08:02] LABS: Potassium 5.2 mmol/L (3.5-5.1)
[2019-06-29] MEDS: hydrALAZINE HCL 25 MG TAB PO SCH (14:24)
[2019-06-29] MEDS: AMIODARONE 200 MG TAB PO SCH (14:24)
[2019-06-29] MEDS: ISOSORBIDE DINITRATE 20 MG TAB PO SCH (14:24)
[2019-06-29] MEDS: CARVEDILOL 3.125 MG TAB PO SCH (14:24)
[2019-06-29 15:20] VITALS: BP 118/82; PULSE 67; RESP 18
--- NOTE | 2019-06-29 22:35 | PN ---
PROGRESS NOTE Patient is seen for followup for end-stage renal disease. Patient is scheduled for hemodialysis today. He denies any significant complaints. EXAMINATION: of the heart S1, S2. Examination of the lungs, bilateral breath sounds are heard. ABDOMEN: Soft, nontender. LAB: Show sodium 134, potassium 5.2, chloride 96, BUN 54, creatinine 7.54, hemoglobin 11.4. ASSESSMENT: 1. End-stage renal disease, on hemodialysis on a Saturday, Saturday, Saturday schedule. Scheduled for hemodialysis today. 2. Bleeding from the access the AV fistula stenosis and elevated INR, currently improved to follow up with vascular surgery as outpatient. 3. Hypertension with end-stage renal disease. 4. Chronic kidney disease, mineral bone disorder. PLAN: Okay for discharge patient is able to tolerated his treatment well and we are able to access his fistula without any trouble. MMODL / IJN: [id number] /
== END 2019-06-29 14:44 | disposition home or self-care (01) | DRG 314 ==
LOC: EC 18:53 → 4SSUR 21:23 → OBSVTOIN 06-27 14:11
PROVIDERS: ADMIT Family Medicine; ATTEND Family Medicine
DX: T82.838A Hemorrhage due to vascular prosthetic devices, implants and grafts, initial encounter (principal); N18.6 End stage renal disease; I13.2 Hypertensive heart and chronic kidney disease with heart failure and with stage 5 chronic kidney disease, or end stage renal disease; I42.9 Cardiomyopathy, unspecified; I48.20 Chronic atrial fibrillation, unspecified; Z94.0 Kidney transplant status; T45.515A Adverse effect of anticoagulants, initial encounter; T82.858A Stenosis of other vascular prosthetic devices, implants and grafts, initial encounter; E88.89 Other specified metabolic disorders; D63.1 Anemia in chronic kidney disease; I50.9 Heart failure, unspecified; R79.1 Abnormal coagulation profile; E78.5 Hyperlipidemia, unspecified; F41.9 Anxiety disorder, unspecified; I25.10 Atherosclerotic heart disease of native coronary artery without angina pectoris; I25.2 Old myocardial infarction; K57.90 Diverticulosis of intestine, part unspecified, without perforation or abscess without bleeding; M10.9 Gout, unspecified; Z86.14 Personal history of Methicillin resistant Staphylococcus aureus infection; Z86.010 Personal history of colon polyps; Z79.01 Long term (current) use of anticoagulants; Z79.899 Other long term (current) drug therapy; Z99.2 Dependence on renal dialysis; Z87.891 Personal history of nicotine dependence; Z95.5 Presence of coronary angioplasty implant and graft; Z82.49 Family history of ischemic heart disease and other diseases of the circulatory system; Z83.3 Family history of diabetes mellitus; Z84.1 Family history of disorders of kidney and ureter; Y83.2 Surgical operation with anastomosis, bypass or graft as the cause of abnormal reaction of the patient, or of later complication, without mention of misadventure at the time of the procedure
CPT/HCPCS: 36415; 80048; 80053; 85025; 85610; 85730; 90935; 99284

== ENCOUNTER → 2021-08-25 | Outpatient (CLI) | payer MEDICARE, BC ==
--- NOTE | 2021-08-25 15:40 | XR ---
EXAM TYPE: LUMBAR SPINE X RAY SERIES COMPARISON: NONE HISTORY: Pain TECHNIQUE: 3 views are submitted. FINDINGS: A vague calcifications are seen in both upper quadrants. There are vascular calcifications of the aor ta. Hypertrophic changes involving the vertebral column are seen at multiple levels. No compression d eformities. IMPRESSION: 1. Multilevel mild degenerative disc disease with hypertrophic spurring recommend follow-up MRI. 2. Nonspecific vague calcifications in the upper abdomen. May be related to calcified renal masses no piper on prior CT scan.
== END | disposition home or self-care (01) ==
LOC: RADXRMAIN 15:17
PROVIDERS: ATTEND Family Medicine
DX: M51.36 Other intervertebral disc degeneration, lumbar region (principal); M25.78 Osteophyte, vertebrae; R93.5 Abnormal findings on diagnostic imaging of other abdominal regions, including retroperitoneum
CPT/HCPCS: 72100

== ENCOUNTER → 2021-09-18 | Outpatient (CLI) | payer MEDICARE, BC | END | disposition home or self-care (01) | LOC: RADMRIMAIN 17:31 | PROVIDERS: ATTEND Family Medicine | DX: Z53.9 Procedure and treatment not carried out, unspecified reason (principal) ==

== ENCOUNTER → 2023-02-14 | Outpatient (CLI) | payer BC, MEDICARE ==
--- NOTE | 2023-02-14 14:24 | NM ---
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 Images acqui red for hours post injection. FINDINGS: No intense uptake to suggest metastatic lesion to the bone or acute fracture. There is degenerative u ptake about the shoulders, sternoclavicular joints, midthoracic spine, bilateral hips, bilateral wris ts and bilateral ankles and feet. IMPRESSION: Degenerative uptake
== END | disposition home or self-care (01) ==
LOC: RADNMMAIN 10:20
PROVIDERS: ATTEND Internal Medicine Hematology & Oncology
DX: D48.0 Neoplasm of uncertain behavior of bone and articular cartilage (principal); D47.2 Monoclonal gammopathy; I11.0 Hypertensive heart disease with heart failure; I50.9 Heart failure, unspecified; E21.2 Other hyperparathyroidism; M19.011 Primary osteoarthritis, right shoulder; M19.012 Primary osteoarthritis, left shoulder; M16.0 Bilateral primary osteoarthritis of hip; M19.072 Primary osteoarthritis, left ankle and foot; M19.071 Primary osteoarthritis, right ankle and foot; M47.814 Spondylosis without myelopathy or radiculopathy, thoracic region; M19.09 Primary osteoarthritis, other specified site; M19.032 Primary osteoarthritis, left wrist; M19.031 Primary osteoarthritis, right wrist; Z71.3 Dietary counseling and surveillance
CPT/HCPCS: 78306; A9503